=== PATIENT | female | born 1940 | race Caucasian/White ===

== ENCOUNTER → 2016-10-23 | Outpatient (CLI) | payer MEDICARE ==
[~2016-10-23] MED LIST: ASPI1TAB PO; ATEN50TA2 PO; ATOR40TA PO; CYCL5TA PO; DITR5TAB PO; LEXA1TAB2 PO; LISI10TA2 PO; LYRI75CA PO; METF1000 PO; NAPR500T2 PO; NEUR100C PO; OMEP40CA2 PO; PERC10TA17 PO; PERC5TAB6 PO; TIZA2CAP3 PO; VISITAB6 PO; VOLT1GEL24 TD
--- NOTE | 2016-10-24 01:50 | ECWPNPC ---
PATIENT NAME: ANNITA CANNON : 1940 GENDER: FEMALE VISIT DATE: 10/23/2016 DISCHARGE DATE: 10/23/16 1000 VISIT LOCKED DATE TIME: PHYSICIAN: ZABRINA LINK RESOURCE: ZABRINA LINK REASON FOR APPOINTMENT 1. RIGHT KNEE/BACK HISTORY OF PRESENT ILLNESS HISTORY OF PRESENT ILLNESS: HERE FOR F/U OF CHRONIC LOW BACK PAIN R>L.DID NOT DO PT .NOT INTERESTED IN DOING PT.RATING VAS 7/10.FINDS OXYCODONE 10/325 PRN HELPFUL DENIES SIDE EFFECTS.TAKING CYMBALTA 30MG BID PRESCRIBED BY PRIMARY CARE .FINDS IT HELPFUL.INTERVENTIONAL PROCEDURES HERE HAVE NOT BEEN HELPFUL.C/O INCREASE IN CHRONIC RIGHT KNEE PAIN.HX OF RIGHT KNEE REPLACEMENT SEVERAL YEARS AGO. PAIN THE PATIENT DESCRIBES THE PAIN... THE PATIENT DESCRIBES THE PAIN... THE PATIENT DESCRIBES THE PAIN... PAIN THE PATIENT DESCRIBES THE PAIN... THE PATIENT DESCRIBES THE PAIN... THE PATIENT DESCRIBES THE PAIN... FALL RISK SCREENING: SCREENING :NO FALLS IN THE PAST YEAR CURRENT MEDICATIONS TAKING ACETAMINOPHEN 500 MG CAPSULE 1 CAPSULE NEEDED ORALLY EVERY 6 HRS TAKING MICONAZOLE NITRATE 2 % CREAM 1 APPLICATION TO AFFECTED SKIN FOLDS EXTERNALLY TWICE A DAY NEEDED TAKING TRIAMCINOLONE ACETONIDE 0.5 % OINTMENT 1 APPLICATION TO AFFECTED AREA EXTERNALLY TO VULVA TWICE A DAY TAKING OCCUVITE TABLET 1 TAB(S) ORAL TWICE DAILY TAKING NEEDLE (DISP) BD NEEDLES FOR VICTOZA 1 SUBCUTANEOUSLY DAILY TAKING BLOOD GLUCOSE TEST STRIP - - DX: 250.00 - DAILY TAKING BLOOD GLUCOSE TEST DX: 250.00 STRIP DIRECTED IN VITRO DAILY TAKING SPACER/AERO CHAMBER MOUTHPIECE 0 MISCELLANEOUS DIRECTED - - TAKING MUCINEX 600 MG TABLET EXTENDED RELEASE 12 HOUR 1 TABLET NEEDED ORALLY EVERY 12 HRS TAKING TIZANIDINE HCL 2 MG TABLET 1-2 TABS NEEDED ORALLY AT BEDTIME, NOTES: PAIN CLINIC TAKING ALBUTEROL SULFATE HFA 108 (90 BASE) MCG/ACT AEROSOL SOLUTION 2 PUFFS INHALATION FOUR TIMES A DAY IF NEEDED TAKING FLONASE 50 MCG/ACT SUSPENSION 1 SPRAY IN EACH NOSTRIL NASALLY ONCE A DAY TAKING VOLTAREN 1 % GEL EXTERNALLY DIRECTED, NOTES: PAIN CLINIC TAKING ATENOLOL 50 MG TABLET 1 TABLET ORALLY ONCE A DAY TAKING ZESTORETIC 10-12.5 MG TABLET 1 TABLET ORALLY ONCE A DAY TAKING CYMBALTA 60 MG CAPSULE DELAYED RELEASE PARTICLES 1 CAPSULE ORALLY ONCE A DAY TAKING VICTOZA 1.8 MG SOLN 1.8 MG INJECTION SUBCUTANEOUSLY DAILY TAKING METFORMIN HCL 1000 MG TABLET 1 TABLET WITH MEALS ORALLY TWICE A DAY TAKING GLIPIZIDE XL 2.5 MG TABLET EXTENDED RELEASE 24 HOUR 1 TABLET ORALLY ONCE A DAY WITH MEAL TAKING ASPIR-81 81 MG TABLET DELAYED RELEASE 1 TABLET ORALLY ONCE A DAY TAKING MAGNESIUM OXIDE 500 MG TABLET 1 TAB WITH MEAL ORALLY DAILY TAKING CALCIUM + D 600-200 MG-UNIT TABLET 1 TABLET WITH FOOD ORALLY ONCE A DAY TAKING VITAMIN D 2000 UNIT TABLET 1 TABLET ORALLY DAILY WITH MEAL TAKING RANITIDINE HCL 150 MG CAPSULE 1 CAPSULE AT BEDTIME ORALLY ONCE A DAY NEEDED TAKING ATORVASTATIN CALCIUM 40 MG TABLET 1 TABLET ORALLY ONCE A DAY TAKING NAPROXEN 500 MG TABLET 1 TABLET NEEDED ORALLY EVERY 12 HRS TAKING ESOMEPRAZOLE MAGNESIUM 20 MG CAPSULE DELAYED RELEASE 1 CAPSULE ORALLY TWICE DAILY NEEDED WITH NAPROXEN TAKING PERCOCET 10-325 MG TABLET 1 CAP(S) ORALLY Q4H PRN MDD3, NOTES: PAIN CLINIC NOT-TAKING FLUOCINONIDE 0.05 % OINTMENT 1 APPLICATION TO AFFECTED AREA ON ELBOWS EXTERNALLY TWICE A DAY TO ELBOWS NEEDED FOR TWO WEEKS NOT-TAKING DERM OTIC 0.01% OIL 5 GTTS TO RIGHT EAR OTIC TWICE DAILY NOT-TAKING ESTRING 2 MG RING 1 RING WTW VAGINAL 90 DAYS UNKNOWN OXYBUTYNIN CHLORIDE ER 5 MG TABLET EXTENDED RELEASE 24 HOUR 1 TABLET ORALLY ONCE A DAY MEDICATION LIST REVIEWED AND RECONCILED WITH THE PATIENT PAST MEDICAL HISTORY TYPE II DIABETES OSTEOPENIA DEXA NL 10/28/2012 HEMATURIA DEPRESSION ANXIETY HYPERTENSION, ESSENTIAL ALLERGIC RHINITIS DIVERTICULOSIS HYPERLIPIDEMIA, MIXED ARTHRITIS ESOPHAGEAL REFLUX DEGENERATIVE DISC DISEASE ALLERGIES N.K.D.A. 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 NEW PATIENT PAIN DIARY TODAY'S VISITNOTES FROM 0-10, WHAT LEVEL IS YOUR PAIN TODAY?0 PAIN CLINIC PFS, CLERGY, PUBLIC HEALTH REFERRALS PFS REFERRAL NEEDED?NO CLERGY REFERRAL NEEDED?NO PUBLIC HEALTH REFERRAL NEEDED?NO WAS THE PROVIDER NOTIFIED OF ANY PERTINENT INFO?NO PFS REFERRAL NEEDED?NO CLERGY REFERRAL NEEDED?NO PUBLIC HEALTH REFERRAL NEEDED?NO WAS THE PROVIDER NOTIFIED OF ANY PERTINENT INFO?NO REVIEW OF SYSTEMS CONSTITUTIONAL: ANY CHANGE IN YOUR MEDICAL CONDITION? NO . CHILLS NO . FEVER NO . INFECTION: DO YOU HAVE NEW INFECTIONS? NO . DO YOU HAVE HISTORY OF MRSA? NO . MUSCULOSKELETAL: ANY NEW PATTERNS OF PAIN OR NUMBNESS? NO . GASTROENTEROLOGY: ANY NEW CHANGE IN BOWEL CONTROL? NO . GENITOURINARY: ANY NEW CHANGE IN BLADDER CONTROL? NO . IS THERE A CHANCE YOU COULD BE ? NO . HEMATOLOGY/LYMPH: DO YOU TAKE ANY BLOOD THINNERS? (FOR EXAMPLE- COUMADIN, PLAVIX, AGGRENOX, PLATEL, PRADAXA, OR XARELTO) NO . WHEN WAS YOUR LAST DOSE? DATE: TIME: . NEUROLOGY: HAVE YOU FALLEN IN THE PAST 6 MONTHS? NO . ANY NEW EXTREMITY NUMBNESS OR WEAKNESS? NO . CARDIOLOGY: DO YOU HAVE A PACEMAKER OR DEFIBRILLATOR? NO . RESPIRATORY: HAVE YOU BEEN SICK IN THE PAST WEEK? NO . FEVER NO . FLU LIKE SYMPTOMS? NO . COUGH NO . INTEGUMENTARY: DO YOU HAVE ANY RASHES OR OPEN SORES? NO . ALLERGIC/IMMUNO: ARE YOU ALLERGIC TO SHELLFISH OR IV DYE? NO . ANY NEW ALLERGIES? NO . PSYCHIATRIC: DO YOU HAVE THOUGHTS OF HURTING YOURSELF OR SOMEONE ELSE? NO . ARE YOU ABUSED, NEGLECTED, OR IN AN UNSAFE ENVIRONMENT? NO . ENDOCRINOLOGY: ARE YOU DIABETIC? YES . OTHER: DO YOU NEED ANY PRESCRIPTIONS? YES PERCOCET . IF YES, PLEASE LIST: ____ . ANY NEW PROBLEMS WITH YOUR MEDICATIONS? NO . WHEN DID YOU LAST EAT? ____ . WHEN DID YOU LAST DRINK? ____ . WHAT DID YOU LAST DRINK? ____ . NAME OF PERSON DRIVING YOU HOME? ____ . DO YOU HAVE ANY OTHER QUESTIONS OR CONCERNS NO . REVIEWED BY: PROVIDER: ZABRINA NOEL . VITAL SIGNS WT 185 LBS, HT 62 IN, BMI 33.83 INDEX, BP 162/81 MM HG, HR 84 /MIN, RR 16 /MIN, TEMP 96.5 F, OXYGEN SAT % 98, NA INITIALS TL 0923, REVIEWED BY: AD. EXAMINATION GENERAL EXAMINATION: LUNGS:LUNG SOUNDS ARE CLEAR. HEART:HEART RATE REGULAR. MUSCULOSKELETAL:*. LUMBAR SACRAL SPINEMUSCLE STRENGTH TESTING 5/5 BILATERAL. PALPATION: POSITIVE FOR PAIN OVER L/S SPINE. + FOR PAIN OVER L/S PARSPINAL ON RIGHT. TRIGGER POINTS:, . ROJM TESTING WITH NO INCREASE IN PAIN. NORMAL STEADY GAIT, ELICITED WITH PALPATION OVER RIGHT LUMBAR PARAVERTEBRAL MUSCLES.. ASSESSMENTS BILATERAL LOW BACK PAIN WITH RIGHT-SIDED SCIATICA - M54.41 (PRIMARY) POST LAMINECTOMY SYNDROME - M96.1 USE OF OPIATES FOR THERAPEUTIC PURPOSES - Z79.899 TREATMENT BILATERAL LOW BACK PAIN WITH RIGHT-SIDED SCIATICA REFILL PERCOCET TABLET, 10-325 MG, 1 CAP(S), ORALLY, Q4H PRN MDD3, 30 DAY(S), 45, REFILLS 0, NOTES: PAIN CLINIC NOTES: ISTOP REGISTRY REVIEWED AND DEMNOSTRATES COMPLLIANCE. BRINGS IN MEDICATIONS WHICH IS APPROPRIATE FOR WHAT WAS DISPENSED. RECENT URINE TOXICOLOGY REVIEWED. NO UNAUTHORIZED MEDICATIONS. NO ILLICIT SUBSTANCES AND PRESCRIBED MEDICATIONS WERE PRESENT. , RISKS AND BENEFITS OF NARCOTIC/OPIOD MEDICATIONS WERE REVIEWED WITH PATIENT - THIS INCLUDES BUT IS NOT LIMITED TO RISK OF DEPENDANCE/DEVELOPMENT OF ADDICTION, MOOD DISTURBANCE AND DEPRESSION, OSTEOPOROSIS, HORMONAL AND LABIDAL CHANGES, RESPIRATORY DEPRESSION AND . PATIENT IS ADVISED NOT TO DRIVE WHILE ON THESE MEDICATIONS. PROCEDURE CODES FA211 ESTABILISHED PATIENT [facility] FACILITY CHARGE G8730 PAIN ASSESS POS TOOL F/U PLAN DOC G8427 DOC MEDS VERIFIED W/PT OR RE FOLLOW UP 2 MONTHS ELECTRONICALLY SIGNED BY BERT TORRES ON 10/23/2016 AT 02:34 PM EST DISCLAIMER : THIS IS A VISIT SUMMARY EXTRACTED FROM THE [employer] CHART. IT IS NOT A COPY OF THE [employer] PROGRESS NOTE. MARY
== END ==
LOC: M PAIN 09:20
PROVIDERS: ATTEND Nurse Practitioner Family
DX: Z09 Encounter for follow-up examination after completed treatment for conditions other than malignant neoplasm (principal); G89.29 Other chronic pain; M54.41 Lumbago with sciatica, right side; M96.1 Postlaminectomy syndrome, not elsewhere classified; E11.9 Type 2 diabetes mellitus without complications; I10 Essential (primary) hypertension; M85.80 Other specified disorders of bone density and structure, unspecified site; E78.5 Hyperlipidemia, unspecified; M19.90 Unspecified osteoarthritis, unspecified site; K21.9 Gastro-esophageal reflux disease without esophagitis; F32.9 Major depressive disorder, single episode, unspecified; F41.9 Anxiety disorder, unspecified; J30.89 Other allergic rhinitis; M47.819 Spondylosis without myelopathy or radiculopathy, site unspecified; Z79.1 Long term (current) use of non-steroidal anti-inflammatories (NSAID); Z79.84 Long term (current) use of oral hypoglycemic drugs; Z79.82 Long term (current) use of aspirin; Z79.891 Long term (current) use of opiate analgesic; Z79.899 Other long term (current) drug therapy

== ENCOUNTER → 2017-01-20 | Outpatient (CLI) | payer MEDICARE ==
[~2017-01-20] MED LIST changes: +E-Z PAQUE 60% w/v SUSP 355ML BOTTLE As Ordered ONE; +E-Z-GAS II EFFERVESCENT PACKET (SODIUM BICARB./CITRIC ACID/SIMETHICONE) As Ordered ONE; +E-Z-HD 98% w/w 340GM SUSP BTL As Ordered ONE
--- NOTE | 2017-01-20 16:25 | REP ---
ESOPHAGRAM, AIR CONTRAST: The procedure was performed under the direct supervision of Dr. Bar. The images were reviewed with Dr. Bar. A single view PA chest x-ray is submitted as a project control officer film. There is no change compared to a previous chest x-ray performed on 12/03/2011. There are surgical clips noted in the right upper quadrant. Liquid barium and gas producing granules were given in the erect position as well as liquid barium in the prone oblique positions in order to perform a double contrast esophagram examination. The oral and pharyngeal stages of deglutition are unremarkable. Esophageal transport demonstrates tertiary waves. There is no esophagitis, stricture, mucosal ring or hiatal hernia. Gastroesophageal reflux is not demonstrated on this examination. IMPRESSION: Esophageal dysmotility, otherwise, unremarkable double contrast esophagram examination. 1 minute and 8 seconds of fluoroscopy time was utilized for this procedure. Reviewed by JIMMY Tate 01/20/2017 04:50 PEdited and Signed by Dereje Bar MD 01/20/2017 05:10 P
== END ==
LOC: M RAD 08:55
PROVIDERS: ATTEND Surgery
DX: R13.10 Dysphagia, unspecified (principal)

== ENCOUNTER → 2017-02-06 | Outpatient (CLI) | payer MEDICARE ==
[~2017-02-06] MED LIST changes: -E-Z PAQUE 60% w/v SUSP 355ML BOTTLE As Ordered ONE; -E-Z-GAS II EFFERVESCENT PACKET (SODIUM BICARB./CITRIC ACID/SIMETHICONE) As Ordered ONE; -E-Z-HD 98% w/w 340GM SUSP BTL As Ordered ONE
--- NOTE | 2017-02-25 02:05 | ECWPNPC ---
PATIENT NAME: ANNITA CANNON : 1940 GENDER: FEMALE VISIT DATE: 02/06/2017 DISCHARGE DATE: 02/06/17 1007 VISIT LOCKED DATE TIME: PHYSICIAN: ZABRINA LINK RESOURCE: ZABRINA LINK REASON FOR APPOINTMENT 1. BACK/R LEG HISTORY OF PRESENT ILLNESS HISTORY OF PRESENT ILLNESS: HERE FOR F/U OF CHRONIC LOW BACK PAIN R>L.DID NOT DO PT .NOT INTERESTED IN DOING PT.RATING VAS 8/10.FINDS OXYCODONE 10/325 PRN HELPFUL DENIES SIDE EFFECTS.TAKING CYMBALTA 30MG BID PRESCRIBED BY PRIMARY CARE .FINDS IT HELPFUL.INTERVENTIONAL PROCEDURES HERE HAVE NOT BEEN HELPFUL.C/O INCREASE IN CHRONIC RIGHT KNEE PAIN.HX OF RIGHT KNEE REPLACEMENT SEVERAL YEARS AGO. PAIN THE PATIENT DESCRIBES THE PAIN... THE PATIENT DESCRIBES THE PAIN... THE PATIENT DESCRIBES THE PAIN... THE PATIENT DESCRIBES THE PAIN... FALL RISK SCREENING: SCREENING :NO FALLS IN THE PAST YEAR CURRENT MEDICATIONS TAKING ACETAMINOPHEN 500 MG CAPSULE 1 CAPSULE NEEDED ORALLY EVERY 6 HRS TAKING TRIAMCINOLONE ACETONIDE 0.5 % OINTMENT 1 APPLICATION TO AFFECTED AREA EXTERNALLY TO VULVA TWICE A DAY TAKING OCCUVITE TABLET 1 TAB(S) ORAL TWICE DAILY TAKING BLOOD GLUCOSE TEST STRIP - - DX: 250.00 - DAILY TAKING BLOOD GLUCOSE TEST DX: 250.00 STRIP DIRECTED IN VITRO DAILY TAKING SPACER/AERO CHAMBER MOUTHPIECE 0 MISCELLANEOUS DIRECTED - - TAKING MUCINEX 600 MG TABLET EXTENDED RELEASE 12 HOUR 1 TABLET NEEDED ORALLY EVERY 12 HRS TAKING TIZANIDINE HCL 2 MG TABLET 1-2 TABS NEEDED ORALLY AT BEDTIME, NOTES: PAIN CLINIC TAKING VOLTAREN 1 % GEL EXTERNALLY DIRECTED, NOTES: PAIN CLINIC TAKING ASPIR-81 81 MG TABLET DELAYED RELEASE 1 TABLET ORALLY ONCE A DAY TAKING MAGNESIUM OXIDE 500 MG TABLET 1 TAB WITH MEAL ORALLY DAILY TAKING NAPROXEN 500 MG TABLET 1 TABLET NEEDED ORALLY EVERY 12 HRS TAKING VITAMIN D 2000 UNIT TABLET 1 TABLET ORALLY DAILY WITH MEAL TAKING CALCIUM + D 600-200 MG-UNIT TABLET 1 TABLET WITH FOOD ORALLY ONCE A DAY TAKING FLONASE 50 MCG/ACT SUSPENSION 1 SPRAY IN EACH NOSTRIL NASALLY ONCE A DAY TAKING ALBUTEROL SULFATE HFA 108 (90 BASE) MCG/ACT AEROSOL SOLUTION 2 PUFFS INHALATION FOUR TIMES A DAY IF NEEDED TAKING NEEDLE (DISP) BD NEEDLES FOR VICTOZA 1 SUBCUTANEOUSLY DAILY DX:E11.9 TAKING BLOOD GLUCOSE TEST - STRIP DIRECTED IN VITRO DAILY DX E11.9 TAKING ESOMEPRAZOLE MAGNESIUM 20 MG CAPSULE DELAYED RELEASE 1 CAPSULE ORALLY TWICE DAILY NEEDED WITH NAPROXEN TAKING ATORVASTATIN CALCIUM 40 MG TABLET 1 TABLET ORALLY ONCE A DAY TAKING RANITIDINE HCL 150 MG CAPSULE 1 CAPSULE AT BEDTIME ORALLY ONCE A DAY NEEDED TAKING GLIPIZIDE XL 2.5 MG TABLET EXTENDED RELEASE 24 HOUR 1 TABLET ORALLY ONCE A DAY WITH MEAL TAKING METFORMIN HCL 1000 MG TABLET 1 TABLET WITH MEALS ORALLY TWICE A DAY TAKING VICTOZA 1.8 MG SOLN 1.8 MG INJECTION SUBCUTANEOUSLY DAILY TAKING CYMBALTA 60 MG CAPSULE DELAYED RELEASE PARTICLES 1 CAPSULE ORALLY ONCE A DAY TAKING ZESTORETIC 10-12.5 MG TABLET 1 TABLET ORALLY ONCE A DAY TAKING ATENOLOL 50 MG TABLET 1 TABLET ORALLY ONCE A DAY TAKING MICONAZOLE NITRATE 2 % CREAM 1 APPLICATION TO AFFECTED SKIN FOLDS IN GROIN EXTERNALLY TWICE A DAY NEEDED TAKING PERCOCET 10-325 MG TABLET 1 CAP(S) ORALLY Q4H PRN MDD3, NOTES: PAIN CLINIC NOT-TAKING PREDNISONE 20 MG TABLET 2 TABS WITH FOOD ORALLY ONCE A DAY NOT-TAKING AMOXICILLIN 875 MG TABLET 1 TABLET ORALLY TWICE DAILY NOT-TAKING GUAIFENESIN-CODEINE 100-10 MG/5ML SOLUTION 5 ML ORALLY EVERY 4 HRS NEEDED FOR COUGH NOT-TAKING FLUOCINONIDE 0.05 % OINTMENT 1 APPLICATION TO AFFECTED AREA ON ELBOWS EXTERNALLY TWICE A DAY TO ELBOWS NEEDED FOR TWO WEEKS NOT-TAKING DERM OTIC 0.01% OIL 5 GTTS TO RIGHT EAR OTIC TWICE DAILY NOT-TAKING ESTRING 2 MG RING 1 RING WTW VAGINAL 90 DAYS UNKNOWN OXYBUTYNIN CHLORIDE ER 5 MG TABLET EXTENDED RELEASE 24 HOUR 1 TABLET ORALLY ONCE A DAY MEDICATION LIST REVIEWED AND RECONCILED WITH THE PATIENT PAST MEDICAL HISTORY TYPE II DIABETES OSTEOPENIA DEXA NL 10/28/2012 HEMATURIA DEPRESSION ANXIETY HYPERTENSION, ESSENTIAL ALLERGIC RHINITIS DIVERTICULOSIS HYPERLIPIDEMIA, MIXED ARTHRITIS ESOPHAGEAL REFLUX DEGENERATIVE DISC DISEASE ALLERGIES N.K.D.A. REVIEW OF SYSTEMS CONSTITUTIONAL: ANY CHANGE IN YOUR MEDICAL CONDITION? YES, TINGLING LEFT SHOULDER INTO NECK/ NEW IN LAST 2 WEEKS . CHILLS NO . FEVER NO . INFECTION: DO YOU HAVE NEW INFECTIONS? NO . DO YOU HAVE HISTORY OF MRSA? NO . MUSCULOSKELETAL: ANY NEW PATTERNS OF PAIN OR NUMBNESS? NO . GASTROENTEROLOGY: ANY NEW CHANGE IN BOWEL CONTROL? NO . GENITOURINARY: ANY NEW CHANGE IN BLADDER CONTROL? NO . IS THERE A CHANCE YOU COULD BE ? NO . HEMATOLOGY/LYMPH: DO YOU TAKE ANY BLOOD THINNERS? (FOR EXAMPLE- COUMADIN, PLAVIX, AGGRENOX, PLATEL, PRADAXA, OR XARELTO) NO . WHEN WAS YOUR LAST DOSE? DATE: TIME: . NEUROLOGY: HAVE YOU FALLEN IN THE PAST 6 MONTHS? NO . ANY NEW EXTREMITY NUMBNESS OR WEAKNESS? NO . CARDIOLOGY: DO YOU HAVE A PACEMAKER OR DEFIBRILLATOR? NO . RESPIRATORY: HAVE YOU BEEN SICK IN THE PAST WEEK? NO . FEVER NO . FLU LIKE SYMPTOMS? NO . COUGH NO . INTEGUMENTARY: DO YOU HAVE ANY RASHES OR OPEN SORES? NO . ALLERGIC/IMMUNO: ARE YOU ALLERGIC TO SHELLFISH OR IV DYE? NO . ANY NEW ALLERGIES? NO . PSYCHIATRIC: DO YOU HAVE THOUGHTS OF HURTING YOURSELF OR SOMEONE ELSE? NO . ARE YOU ABUSED, NEGLECTED, OR IN AN UNSAFE ENVIRONMENT? NO . ENDOCRINOLOGY: ARE YOU DIABETIC? YES . OTHER: DO YOU NEED ANY PRESCRIPTIONS? NO . IF YES, PLEASE LIST: ____ . ANY NEW PROBLEMS WITH YOUR MEDICATIONS? NO . WHEN DID YOU LAST EAT? ____ . WHEN DID YOU LAST DRINK? ____ . WHAT DID YOU LAST DRINK? ____ . NAME OF PERSON DRIVING YOU HOME? ____ . DO YOU HAVE ANY OTHER QUESTIONS OR CONCERNS NO . REVIEWED BY: PROVIDER: ZABRINA NOEL . VITAL SIGNS WT 185.6 LBS, HT 62 IN, BMI 33.94 INDEX, BP 143/99 R ARM, REPEAT BP 180/74 L ARM, HR 89 /MIN, RR 18 /MIN, TEMP 96.0 F, OXYGEN SAT % 94%, NA INITIALS [id number], REVIEWED BY: NL. EXAMINATION GENERAL EXAMINATION: LUNGS:LUNG SOUNDS ARE CLEAR. HEART:HEART RATE REGULAR. MUSCULOSKELETAL:*. LUMBAR SACRAL SPINEMUSCLE STRENGTH TESTING 5/5 BILATERAL. PALPATION: POSITIVE FOR PAIN OVER L/S SPINE. + FOR PAIN OVER L/S PARSPINAL ON RIGHT. TRIGGER POINTS:, . ROJM TESTING WITH NO INCREASE IN PAIN. NORMAL STEADY GAIT, ELICITED WITH PALPATION OVER RIGHT LUMBAR PARAVERTEBRAL MUSCLES.. 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 BRINGS IN MEDICATIONS WHICH IS APPROPRIATE FOR WHAT WAS DISPENSED. RECENT URINE TOXICOLOGY REVIEWED. NO UNAUTHORIZED MEDICATIONS. NO ILLICIT SUBSTANCES AND PRESCRIBED MEDICATIONS WERE PRESENT. , RISKS AND BENEFITS OF NARCOTIC/OPIOD MEDICATIONS WERE REVIEWED WITH PATIENT - THIS INCLUDES BUT IS NOT LIMITED TO RISK OF DEPENDANCE/DEVELOPMENT OF ADDICTION, MOOD DISTURBANCE AND DEPRESSION, OSTEOPOROSIS, HORMONAL AND LABIDAL CHANGES, RESPIRATORY DEPRESSION AND . PATIENT IS ADVISED NOT TO DRIVE WHILE ON THESE MEDICATIONS.URINE TOX TODAY. PROCEDURE CODES FA211 ESTABILISHED PATIENT [facility] FACILITY CHARGE G8730 PAIN ASSESS POS TOOL F/U PLAN DOC G8427 DOC MEDS VERIFIED W/PT OR RE DISPOSITION & COMMUNICATION FOLLOW UP 2 MONTHS ELECTRONICALLY SIGNED BY BERT TORRES ON 02/24/2017 AT 04:35 PM EDT DISCLAIMER : THIS IS A VISIT SUMMARY EXTRACTED FROM THE [employer] CHART. IT IS NOT A COPY OF THE [employer] PROGRESS NOTE. MTDD
== END ==
LOC: M PAIN 09:20
PROVIDERS: ATTEND Nurse Practitioner Family
DX: M54.41 Lumbago with sciatica, right side (principal); Z79.891 Long term (current) use of opiate analgesic; Z79.82 Long term (current) use of aspirin; Z79.84 Long term (current) use of oral hypoglycemic drugs; Z79.899 Other long term (current) drug therapy; E11.9 Type 2 diabetes mellitus without complications; E78.2 Mixed hyperlipidemia; I10 Essential (primary) hypertension; K21.9 Gastro-esophageal reflux disease without esophagitis; F32.9 Major depressive disorder, single episode, unspecified; F41.9 Anxiety disorder, unspecified; K57.30 Diverticulosis of large intestine without perforation or abscess without bleeding

== ENCOUNTER → 2017-02-23 | Outpatient (CLI) | payer MEDICARE ==
[~2017-02-23] MED LIST changes: -ATOR40TA PO; +ATOR40TA75 PO; -METF1000 PO; +METF10004 PO; -NAPR500T2 PO; +NAPR500T3 PO; -PERC10TA17 PO; +PERC10TA26 PO; +PERC5TAB12 PO; -PERC5TAB6 PO; +VOLT1GEL15 TD; -VOLT1GEL24 TD
[2017-02-23 06:58] LABS: BASO % 0.4 % (0.0-1.0); EOS # 0.4 K/mm3 (0.0-0.50); EOS % 2.8 % (0.0-3.0); LYMPH # 3.5 K/mm3 (1.5-4.5); LYMPH % 24.9 % (24.0-44.0); MEAN CORPUSCULAR HEMOGLOBIN 30.4 pg (27.0-33.0); MEAN CORPUSCULAR HGB CONC 32.4 g/dl (32.0-36.5); MONO # 0.9 K/mm3 (0.0-0.8); MONO % 6.1 % (0.0-5.0); NEUTROPHILS # 8.8 K/mm3 (1.8-7.7); NEUTROPHILS % 63.5 % (36.0-66.0); RED CELL DISTRIBUTION WIDTH 14.7 % (11.5-14.5); WHITE BLOOD COUNT 13.9 K/mm3 (4.0-10.0)
[2017-02-23 07:29] LABS: ALBUMIN 3.6 GM/DL (3.2-5.2); ALBUMIN/GLOBULIN RATIO 1.16 (1.00-1.93); BILIRUBIN,TOTAL 0.5 MG/DL (0.2-1.0); CALCIUM LEVEL 8.9 MG/DL (8.8-10.2); CREATININE FOR GFR 1.09 MG/DL (0.55-1.02); GLOMERULAR FILTRATION RATE 51.8 (>39); TOTAL PROTEIN 6.7 GM/DL (6.4-8.2)
[2017-02-23 07:30] LABS: POTASSIUM SERUM 5.3 MEQ/L (3.5-5.1)
== END ==
LOC: M LAB 06:12
PROVIDERS: ATTEND Physician Assistant Medical
DX: E11.9 Type 2 diabetes mellitus without complications (principal); R22.1 Localized swelling, mass and lump, neck; M54.41 Lumbago with sciatica, right side; Z79.891 Long term (current) use of opiate analgesic

== ENCOUNTER → 2017-02-23 | Outpatient (CLI) | payer MEDICARE ==
[~2017-02-23] MED LIST changes: +ATOR40TA PO; -ATOR40TA75 PO; +METF1000 PO; -METF10004 PO; +NAPR500T2 PO; -NAPR500T3 PO; +PERC10TA17 PO; -PERC10TA26 PO; -PERC5TAB12 PO; +PERC5TAB6 PO; -VOLT1GEL15 TD; +VOLT1GEL24 TD
[2017-02-23 07:19] LABS: CREATININE FOR GFR 1.1 MG/DL (0.55-1.02); GLOMERULAR FILTRATION RATE 51.3 (>39)
== END ==
LOC: M LAB 06:15
PROVIDERS: ATTEND Otolaryngology
DX: R22.1 Localized swelling, mass and lump, neck (principal)

== ENCOUNTER → 2017-02-27 | Outpatient (CLI) | payer MEDICARE ==
[~2017-02-27] MED LIST changes: +ISOVUE-370 76% 100ML VIAL (Q9967) As Ordered ONE
--- NOTE | 2017-02-27 09:22 | REP ---
CT NECK WITH CONTRAST: HISTORY: Neck swelling. Contrast: Isovue 370, 75 mL. The naso-, abiola-, and hypopharynx, larynx, and subglottic trachea are normal in appearance. The salivary and thyroid glands are normal. Small lymph nodes less than 1 cm in size are present in the internal jugular chains, posterior triangles, submandibular and submental areas. Atherosclerotic calcification is present at the carotid bifurcations. Degenerative change is present in the cervical spine. The lung apices are clear. The visualized sinuses are clear. IMPRESSION: There is no neck mass or adenopathy. Signed by Can Diaz MD 02/27/2017 09:23 A
== END ==
LOC: M RAD 07:57
PROVIDERS: ATTEND Otolaryngology
DX: R13.10 Dysphagia, unspecified (principal)
CPT/HCPCS: 70491; Q9967

== ENCOUNTER → 2017-04-10 | Outpatient (CLI) | payer MEDICARE ==
[~2017-04-10] MED LIST changes: -ATOR40TA PO; +ATOR40TA75 PO; -ISOVUE-370 76% 100ML VIAL (Q9967) As Ordered ONE; -METF1000 PO; +METF10004 PO; -NAPR500T2 PO; +NAPR500T3 PO; -PERC10TA17 PO; +PERC10TA26 PO; +PERC5TAB12 PO; -PERC5TAB6 PO; +VOLT1GEL15 TD; -VOLT1GEL24 TD
--- NOTE | 2017-04-11 01:55 | ECWPNPC ---
PATIENT NAME: ANNITA CANNON : 1940 GENDER: FEMALE VISIT DATE: 04/10/2017 DISCHARGE DATE: 04/10/17918 VISIT LOCKED DATE TIME: PHYSICIAN: ZABRINA LINK RESOURCE: ZABRINA LINK REASON FOR APPOINTMENT 1. BACK HISTORY OF PRESENT ILLNESS HISTORY OF PRESENT ILLNESS: HERE FOR F/U OF CHRONIC LOW BACK PAIN R>L.DID NOT DO PT .NOT INTERESTED IN DOING PT.RATING VAS 7/10.FINDS OXYCODONE 10/325 PRN HELPFUL DENIES SIDE EFFECTS.TAKING CYMBALTA 30MG BID PRESCRIBED BY PRIMARY CARE .FINDS IT HELPFUL.INTERVENTIONAL PROCEDURES HERE HAVE NOT BEEN HELPFUL.C/O INCREASE IN CHRONIC RIGHT KNEE PAIN.HX OF RIGHT KNEE REPLACEMENT SEVERAL YEARS AGO. PAIN THE PATIENT DESCRIBES THE PAIN... THE PATIENT DESCRIBES THE PAIN... THE PATIENT DESCRIBES THE PAIN... THE PATIENT DESCRIBES THE PAIN... THE PATIENT DESCRIBES THE PAIN... FALL RISK SCREENING: SCREENING :NO FALLS IN THE PAST YEAR CURRENT MEDICATIONS TAKING ACETAMINOPHEN 500 MG CAPSULE 1 CAPSULE NEEDED ORALLY EVERY 6 HRS TAKING TRIAMCINOLONE ACETONIDE 0.5 % OINTMENT 1 APPLICATION TO AFFECTED AREA EXTERNALLY TO VULVA TWICE A DAY TAKING OCCUVITE TABLET 1 TAB(S) ORAL TWICE DAILY TAKING BLOOD GLUCOSE TEST STRIP - - DX: 250.00 - DAILY TAKING BLOOD GLUCOSE TEST DX: 250.00 STRIP DIRECTED IN VITRO DAILY TAKING SPACER/AERO CHAMBER MOUTHPIECE 0 MISCELLANEOUS DIRECTED - - TAKING MUCINEX 600 MG TABLET EXTENDED RELEASE 12 HOUR 1 TABLET NEEDED ORALLY EVERY 12 HRS TAKING TIZANIDINE HCL 2 MG TABLET 1-2 TABS NEEDED ORALLY AT BEDTIME, NOTES: PAIN CLINIC TAKING VOLTAREN 1 % GEL EXTERNALLY DIRECTED, NOTES: PAIN CLINIC TAKING ASPIR-81 81 MG TABLET DELAYED RELEASE 1 TABLET ORALLY ONCE A DAY TAKING MAGNESIUM OXIDE 500 MG TABLET 1 TAB WITH MEAL ORALLY DAILY TAKING NAPROXEN 500 MG TABLET 1 TABLET NEEDED ORALLY EVERY 12 HRS TAKING VITAMIN D 2000 UNIT TABLET 1 TABLET ORALLY DAILY WITH MEAL TAKING CALCIUM + D 600-200 MG-UNIT TABLET 1 TABLET WITH FOOD ORALLY ONCE A DAY TAKING FLONASE 50 MCG/ACT SUSPENSION 1 SPRAY IN EACH NOSTRIL NASALLY ONCE A DAY TAKING ALBUTEROL SULFATE HFA 108 (90 BASE) MCG/ACT AEROSOL SOLUTION 2 PUFFS INHALATION FOUR TIMES A DAY IF NEEDED TAKING NEEDLE (DISP) BD NEEDLES FOR VICTOZA 1 SUBCUTANEOUSLY DAILY DX:E11.9 TAKING BLOOD GLUCOSE TEST - STRIP DIRECTED IN VITRO DAILY DX E11.9 TAKING ESOMEPRAZOLE MAGNESIUM 20 MG CAPSULE DELAYED RELEASE 1 CAPSULE ORALLY TWICE DAILY NEEDED WITH NAPROXEN TAKING ATORVASTATIN CALCIUM 40 MG TABLET 1 TABLET ORALLY ONCE A DAY TAKING RANITIDINE HCL 150 MG CAPSULE 1 CAPSULE AT BEDTIME ORALLY ONCE A DAY NEEDED TAKING GLIPIZIDE XL 5 MG TABLET EXTENDED RELEASE 24 HOUR 1 TABLET ORALLY ONCE A DAY WITH MEAL TAKING METFORMIN HCL 1000 MG TABLET 1 TABLET WITH MEALS ORALLY TWICE A DAY TAKING VICTOZA 1.8 MG SOLN 1.8 MG INJECTION SUBCUTANEOUSLY DAILY TAKING CYMBALTA 60 MG CAPSULE DELAYED RELEASE PARTICLES 1 CAPSULE ORALLY ONCE A DAY TAKING ZESTORETIC 10-12.5 MG TABLET 1 TABLET ORALLY ONCE A DAY TAKING ATENOLOL 50 MG TABLET 1 TABLET ORALLY ONCE A DAY TAKING MICONAZOLE NITRATE 2 % CREAM 1 APPLICATION TO AFFECTED SKIN FOLDS IN GROIN EXTERNALLY TWICE A DAY NEEDED TAKING PERCOCET 10-325 MG TABLET 1 CAP(S) ORALLY Q4H PRN MDD3, NOTES: PAIN CLINIC NOT-TAKING PREDNISONE 20 MG TABLET 2 TABS WITH FOOD ORALLY ONCE A DAY NOT-TAKING AMOXICILLIN 875 MG TABLET 1 TABLET ORALLY TWICE DAILY NOT-TAKING GUAIFENESIN-CODEINE 100-10 MG/5ML SOLUTION 5 ML ORALLY EVERY 4 HRS NEEDED FOR COUGH NOT-TAKING FLUOCINONIDE 0.05 % OINTMENT 1 APPLICATION TO AFFECTED AREA ON ELBOWS EXTERNALLY TWICE A DAY TO ELBOWS NEEDED FOR TWO WEEKS NOT-TAKING DERM OTIC 0.01% OIL 5 GTTS TO RIGHT EAR OTIC TWICE DAILY NOT-TAKING ESTRING 2 MG RING 1 RING WTW VAGINAL 90 DAYS UNKNOWN OXYBUTYNIN CHLORIDE ER 5 MG TABLET EXTENDED RELEASE 24 HOUR 1 TABLET ORALLY ONCE A DAY MEDICATION LIST REVIEWED AND RECONCILED WITH THE PATIENT PAST MEDICAL HISTORY TYPE II DIABETES OSTEOPENIA DEXA NL 10/28/2012 HEMATURIA DEPRESSION ANXIETY HYPERTENSION, ESSENTIAL ALLERGIC RHINITIS DIVERTICULOSIS HYPERLIPIDEMIA, MIXED ARTHRITIS ESOPHAGEAL REFLUX DEGENERATIVE DISC DISEASE REVIEW OF SYSTEMS REVIEWED BY: PROVIDER: ZABRINA NOEL . CONSTITUTIONAL: ANY CHANGE IN YOUR MEDICAL CONDITION? NO . CHILLS NO . FEVER NO . INFECTION: DO YOU HAVE NEW INFECTIONS? NO . DO YOU HAVE HISTORY OF MRSA? NO . MUSCULOSKELETAL: ANY NEW PATTERNS OF PAIN OR NUMBNESS? NO . GASTROENTEROLOGY: ANY NEW CHANGE IN BOWEL CONTROL? NO . GENITOURINARY: ANY NEW CHANGE IN BLADDER CONTROL? NO . IS THERE A CHANCE YOU COULD BE ? NO . HEMATOLOGY/LYMPH: DO YOU TAKE ANY BLOOD THINNERS? (FOR EXAMPLE- COUMADIN, PLAVIX, AGGRENOX, PLATEL, PRADAXA, OR XARELTO) NO . WHEN WAS YOUR LAST DOSE? DATE: TIME: . NEUROLOGY: HAVE YOU FALLEN IN THE PAST 6 MONTHS? NO . ANY NEW EXTREMITY NUMBNESS OR WEAKNESS? NO . CARDIOLOGY: DO YOU HAVE A PACEMAKER OR DEFIBRILLATOR? NO . RESPIRATORY: HAVE YOU BEEN SICK IN THE PAST WEEK? NO . FEVER NO . FLU LIKE SYMPTOMS? NO . COUGH NO . INTEGUMENTARY: DO YOU HAVE ANY RASHES OR OPEN SORES? NO . ALLERGIC/IMMUNO: ARE YOU ALLERGIC TO SHELLFISH OR IV DYE? NO . ANY NEW ALLERGIES? NO . PSYCHIATRIC: DO YOU HAVE THOUGHTS OF HURTING YOURSELF OR SOMEONE ELSE? NO . ARE YOU ABUSED, NEGLECTED, OR IN AN UNSAFE ENVIRONMENT? NO . ENDOCRINOLOGY: ARE YOU DIABETIC? YES . OTHER: DO YOU NEED ANY PRESCRIPTIONS? NO . IF YES, PLEASE LIST: ____ . ANY NEW PROBLEMS WITH YOUR MEDICATIONS? NO . WHEN DID YOU LAST EAT? ____ . WHEN DID YOU LAST DRINK? ____ . WHAT DID YOU LAST DRINK? ____ . NAME OF PERSON DRIVING YOU HOME? ____ . DO YOU HAVE ANY OTHER QUESTIONS OR CONCERNS NO . VITAL SIGNS WT 1789 LBS, HT 62 IN, BMI 327.18 INDEX, BP 128/62 MM HG, HR 88 /MIN, RR 18 /MIN, TEMP 98.2 F, OXYGEN SAT % 95, SAFE IN ENV? (Y/N) YES, REVIEWED BY: KG. EXAMINATION GENERAL EXAMINATION: LUNGS:LUNG SOUNDS ARE CLEAR. HEART:HEART RATE REGULAR. MUSCULOSKELETAL:*. LUMBAR SACRAL SPINEMUSCLE STRENGTH TESTING 5/5 BILATERAL. PALPATION: POSITIVE FOR PAIN OVER L/S SPINE. + FOR PAIN OVER L/S PARSPINAL ON RIGHT. TRIGGER POINTS:, . ROJM TESTING WITH NO INCREASE IN PAIN. NORMAL STEADY GAIT, ELICITED WITH PALPATION OVER RIGHT LUMBAR PARAVERTEBRAL MUSCLES.. 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 BRINGS IN MEDICATIONS WHICH IS APPROPRIATE FOR WHAT WAS DISPENSED. RECENT URINE TOXICOLOGY REVIEWED. NO UNAUTHORIZED MEDICATIONS. NO ILLICIT SUBSTANCES AND PRESCRIBED MEDICATIONS WERE PRESENT. , RISKS AND BENEFITS OF NARCOTIC/OPIOD MEDICATIONS WERE REVIEWED WITH PATIENT - THIS INCLUDES BUT IS NOT LIMITED TO RISK OF DEPENDANCE/DEVELOPMENT OF ADDICTION, MOOD DISTURBANCE AND DEPRESSION, OSTEOPOROSIS, HORMONAL AND LABIDAL CHANGES, RESPIRATORY DEPRESSION AND . PATIENT IS ADVISED NOT TO DRIVE WHILE ON THESE MEDICATIONS. PROCEDURE CODES G8730 PAIN ASSESS POS TOOL F/U PLAN DOC G8427 DOC MEDS VERIFIED W/PT OR RE FA211 ESTABILISHED PATIENT [facility] FACILITY CHARGE DISPOSITION & COMMUNICATION FOLLOW UP 3 MONTHS ELECTRONICALLY SIGNED BY BERT TORRES ON 04/10/2017 AT 09:52 AM EDT DISCLAIMER : THIS IS A VISIT SUMMARY EXTRACTED FROM THE [employer] CHART. IT IS NOT A COPY OF THE [employer] PROGRESS NOTE. MARY
== END ==
LOC: M PAIN 08:40
PROVIDERS: ATTEND Nurse Practitioner Family
DX: M54.41 Lumbago with sciatica, right side (principal); G89.29 Other chronic pain; Z79.891 Long term (current) use of opiate analgesic; Z79.82 Long term (current) use of aspirin; Z79.84 Long term (current) use of oral hypoglycemic drugs; Z79.4 Long term (current) use of insulin; M15.9 Polyosteoarthritis, unspecified; I10 Essential (primary) hypertension; E11.9 Type 2 diabetes mellitus without complications; E78.2 Mixed hyperlipidemia; F41.9 Anxiety disorder, unspecified; K21.9 Gastro-esophageal reflux disease without esophagitis

== ENCOUNTER → 2017-05-02 | Outpatient (CLI) | payer MEDICARE ==
[2017-05-02 08:35] LABS: BASO # 0.1 K/mm3 (0.0-0.2); BASO % 0.3 % (0.0-1.0); EOS # 0.4 K/mm3 (0.0-0.50); LARGE UNSTAINED CELL # 0.5 K/mm3 (0.0-0.4); LARGE UNSTAINED CELL % 2.8 % (0.0-4.0); LYMPH # 3.9 K/mm3 (1.5-4.5); LYMPH % 18.6 % (24.0-44.0); MEAN CORPUSCULAR HEMOGLOBIN 28.5 pg (27.0-33.0); MEAN CORPUSCULAR HGB CONC 32.2 g/dl (32.0-36.5); MEAN CORPUSCULAR VOLUME 88.6 fl (80.0-96.0); MONO # 1.2 K/mm3 (0.0-0.8); MONO % 6.9 % (0.0-5.0); NEUTROPHILS # 12.6 K/mm3 (1.8-7.7); NEUTROPHILS % 69.4 % (36.0-66.0); PLATELET COUNT, AUTOMATED 453 k/mm3 (150-450); RED CELL DISTRIBUTION WIDTH 14.9 % (11.5-14.5); WHITE BLOOD COUNT 18.1 K/mm3 (4.0-10.0)
[2017-05-02 09:07] LABS: ALBUMIN/GLOBULIN RATIO 0.91 (1.00-1.93); ALKALINE PHOSPHATASE 93 U/L (45-117); ALT/SGPT 19 U/L (12-78); ANION GAP 10 MEQ/L (8-16); AST/SGOT 19 U/L (15-37); BILIRUBIN,TOTAL 0.4 MG/DL (0.2-1.0); BLOOD UREA NITROGEN 26 MG/DL (7-18); CALCIUM LEVEL 9.2 MG/DL (8.8-10.2); CARBON DIOXIDE LEVEL 27 MEQ/L (21-32); CHLORIDE LEVEL 102 MEQ/L (98-107); CHOLESTEROL LEVEL 90 MG/DL (<200); CREATININE FOR GFR 0.89 MG/DL (0.55-1.02); GLOMERULAR FILTRATION RATE > 60.0 (>39); GLUCOSE, FASTING 116 MG/DL (83-110); POTASSIUM SERUM 5.1 MEQ/L (3.5-5.1); SODIUM LEVEL 139 MEQ/L (136-145); TOTAL PROTEIN 6.3 GM/DL (6.4-8.2); TRIGLYCERIDES LEVEL 104 MG/DL (<150)
== END ==
LOC: M LAB 07:46
PROVIDERS: ATTEND Physician Assistant Medical
DX: E11.9 Type 2 diabetes mellitus without complications (principal)

== ENCOUNTER → 2017-05-05 | Outpatient (REF) | payer MEDICARE ==
[2017-05-05 13:06] LABS: CALCIUM LEVEL 8.9 MG/DL (8.8-10.2); CREATININE FOR GFR 1.19 MG/DL (0.55-1.02); GLOMERULAR FILTRATION RATE 46.8 (>39); POTASSIUM SERUM 4.9 MEQ/L (3.5-5.1)
[2017-05-05 13:11] LABS: BASO # 0.1 K/mm3 (0.0-0.2); BASO % 0.7 % (0.0-1.0); EOS # 0.2 K/mm3 (0.0-0.50); EOS % 2.2 % (0.0-3.0); LARGE UNSTAINED CELL # 0.2 K/mm3 (0.0-0.4); LARGE UNSTAINED CELL % 1.8 % (0.0-4.0); LYMPH # 3.8 K/mm3 (1.5-4.5); LYMPH % 34.6 % (24.0-44.0); MEAN CORPUSCULAR HEMOGLOBIN 28.6 pg (27.0-33.0); MEAN CORPUSCULAR HGB CONC 31.8 g/dl (32.0-36.5); MEAN CORPUSCULAR VOLUME 89.9 fl (80.0-96.0); MONO # 0.8 K/mm3 (0.0-0.8); MONO % 7.3 % (0.0-5.0); NEUTROPHILS # 5.5 K/mm3 (1.8-7.7); NEUTROPHILS % 53.3 % (36.0-66.0); PLATELET COUNT, AUTOMATED 489 k/mm3 (150-450); WHITE BLOOD COUNT 10.4 K/mm3 (4.0-10.0)
== END ==
LOC: M LABDRAW1 12:43
PROVIDERS: ATTEND Physician Assistant Medical
DX: E11.9 Type 2 diabetes mellitus without complications (principal)

== ENCOUNTER → 2017-05-22 | Outpatient (REF) | payer MEDICARE ==
[2017-05-22 12:53] LABS: BASO # 0.1 K/mm3 (0.0-0.2); EOS # 0.4 K/mm3 (0.0-0.50); EOS % 3.4 % (0.0-3.0); LYMPH # 5.2 K/mm3 (1.5-4.5); LYMPH % 42.3 % (24.0-44.0); MEAN CORPUSCULAR HGB CONC 32.7 g/dl (32.0-36.5); MEAN CORPUSCULAR VOLUME 88.7 fl (80.0-96.0); MONO % 8.9 % (0.0-5.0); NEUTROPHILS # 4.9 K/mm3 (1.8-7.7); NEUTROPHILS % 41.8 % (36.0-66.0); RED CELL DISTRIBUTION WIDTH 16.6 % (11.5-14.5)
[2017-05-22 13:02] LABS: WHITE BLOOD COUNT 11.6 K/mm3 (4.0-10.0)
[2017-05-22 13:39] LABS: ANION GAP 11 MEQ/L (8-16); BLOOD UREA NITROGEN 23 MG/DL (7-18); CALCIUM LEVEL 9.2 MG/DL (8.8-10.2); CARBON DIOXIDE LEVEL 24 MEQ/L (21-32); CHLORIDE LEVEL 109 MEQ/L (98-107); CREATININE FOR GFR 0.74 MG/DL (0.55-1.02); FERRITIN 29 NG/ML (8-252); GLOMERULAR FILTRATION RATE > 60.0 (>39); GLUCOSE, FASTING 157 MG/DL (83-110); SODIUM LEVEL 144 MEQ/L (136-145)
== END ==
LOC: M LABDRAW1 11:35
PROVIDERS: ATTEND Physician Assistant Medical
DX: D64.9 Anemia, unspecified (principal); E11.9 Type 2 diabetes mellitus without complications

== ENCOUNTER → 2017-07-13 | Outpatient (CLI) | payer MEDICARE ==
--- NOTE | 2017-07-30 02:05 | ECWPNPC ---
PATIENT NAME: ANNITA CANNON : 1940 GENDER: FEMALE VISIT DATE: 07/13/2017 DISCHARGE DATE: 07/13/17932 VISIT LOCKED DATE TIME: PHYSICIAN: ZABRINA LINK RESOURCE: ZABRINA LINK REASON FOR APPOINTMENT 1. BACK HISTORY OF PRESENT ILLNESS HISTORY OF PRESENT ILLNESS: HERE FOR F/U OF CHRONIC LOW BACK PAIN R>L.ALSO C/O OF NECK PAIN AND STIFFNESS.DID NOT DO PT .NOT INTERESTED IN DOING PT.RATING VAS 8/10.FINDS OXYCODONE 10/325 PRN HELPFUL. DENIES SIDE EFFECTS.TAKING CYMBALTA 30MG BID PRESCRIBED BY PRIMARY CARE FINDS IT HELPFUL.INTERVENTIONAL PROCEDURES HERE HAVE NOT BEEN HELPFUL.USING PERCOCET 10/325 FOR SEVERE EPISODES WITH GOOD EFFECT #45/MONTH SUPPLY.DENIES SIDE EFFECTS. PAIN THE PATIENT DESCRIBES THE PAIN... THE PATIENT DESCRIBES THE PAIN... THE PATIENT DESCRIBES THE PAIN... THE PATIENT DESCRIBES THE PAIN... THE PATIENT DESCRIBES THE PAIN... THE PATIENT DESCRIBES THE PAIN... FALL RISK SCREENING: SCREENING :NO FALLS IN THE PAST YEAR CURRENT MEDICATIONS TAKING ACETAMINOPHEN 500 MG CAPSULE 1 CAPSULE NEEDED ORALLY EVERY 6 HRS TAKING TRIAMCINOLONE ACETONIDE 0.5 % OINTMENT 1 APPLICATION TO AFFECTED AREA EXTERNALLY TO VULVA TWICE A DAY TAKING OCCUVITE TABLET 1 TAB(S) ORAL TWICE DAILY TAKING BLOOD GLUCOSE TEST STRIP - - DX: 250.00 - DAILY TAKING BLOOD GLUCOSE TEST DX: 250.00 STRIP DIRECTED IN VITRO DAILY TAKING SPACER/AERO CHAMBER MOUTHPIECE 0 MISCELLANEOUS DIRECTED - - TAKING MUCINEX 600 MG TABLET EXTENDED RELEASE 12 HOUR 1 TABLET NEEDED ORALLY EVERY 12 HRS TAKING TIZANIDINE HCL 2 MG TABLET 1-2 TABS NEEDED ORALLY AT BEDTIME, NOTES: PAIN CLINIC TAKING ASPIR-81 81 MG TABLET DELAYED RELEASE 1 TABLET ORALLY ONCE A DAY TAKING MAGNESIUM OXIDE 500 MG TABLET 1 TAB WITH MEAL ORALLY DAILY TAKING NAPROXEN 500 MG TABLET 1 TABLET NEEDED ORALLY EVERY 12 HRS TAKING VITAMIN D 2000 UNIT TABLET 1 TABLET ORALLY DAILY WITH MEAL TAKING FLONASE 50 MCG/ACT SUSPENSION 1 SPRAY IN EACH NOSTRIL NASALLY ONCE A DAY TAKING ALBUTEROL SULFATE HFA 108 (90 BASE) MCG/ACT AEROSOL SOLUTION 2 PUFFS INHALATION FOUR TIMES A DAY IF NEEDED TAKING NEEDLE (DISP) BD NEEDLES FOR VICTOZA 1 SUBCUTANEOUSLY DAILY DX:E11.9 TAKING FERROUS SULFATE 325 (65 FE) MG TABLET 1 TABLET ORALLY TID TAKING BLOOD GLUCOSE TEST - STRIP DIRECTED IN VITRO DAILY DX E11.9 TAKING CALCIUM + D 600-200 MG-UNIT TABLET 1 TABLET WITH FOOD ORALLY ONCE A DAY TAKING ESOMEPRAZOLE MAGNESIUM 20 MG CAPSULE DELAYED RELEASE 1 CAPSULE ORALLY TWICE DAILY NEEDED WITH NAPROXEN TAKING ATORVASTATIN CALCIUM 40 MG TABLET 1 TABLET ORALLY ONCE A DAY TAKING RANITIDINE HCL 150 MG CAPSULE 1 CAPSULE AT BEDTIME ORALLY ONCE A DAY NEEDED TAKING GLIPIZIDE XL 5 MG TABLET EXTENDED RELEASE 24 HOUR 1 TABLET ORALLY ONCE A DAY WITH MEAL TAKING METFORMIN HCL 1000 MG TABLET 1 TABLET WITH MEALS ORALLY TWICE A DAY TAKING VICTOZA 1.8 MG SOLN 1.8 MG INJECTION SUBCUTANEOUSLY DAILY TAKING CYMBALTA 60 MG CAPSULE DELAYED RELEASE PARTICLES 1 CAPSULE ORALLY ONCE A DAY TAKING ZESTORETIC 10-12.5 MG TABLET 1 TABLET ORALLY ONCE A DAY TAKING ATENOLOL 50 MG TABLET 1 TABLET ORALLY ONCE A DAY TAKING MICONAZOLE NITRATE 2 % CREAM 1 APPLICATION TO AFFECTED SKIN FOLDS IN GROIN EXTERNALLY TWICE A DAY NEEDED TAKING PERCOCET 10-325 MG TABLET 1 CAP(S) ORALLY Q4H PRN MDD3 NOT-TAKING VOLTAREN 1 % GEL EXTERNALLY DIRECTED, NOTES: PAIN CLINIC NOT-TAKING PREDNISONE 20 MG TABLET 2 TABS WITH FOOD ORALLY ONCE A DAY NOT-TAKING AMOXICILLIN 875 MG TABLET 1 TABLET ORALLY TWICE DAILY NOT-TAKING GUAIFENESIN-CODEINE 100-10 MG/5ML SOLUTION 5 ML ORALLY EVERY 4 HRS NEEDED FOR COUGH NOT-TAKING FLUOCINONIDE 0.05 % OINTMENT 1 APPLICATION TO AFFECTED AREA ON ELBOWS EXTERNALLY TWICE A DAY TO ELBOWS NEEDED FOR TWO WEEKS NOT-TAKING DERM OTIC 0.01% OIL 5 GTTS TO RIGHT EAR OTIC TWICE DAILY NOT-TAKING ESTRING 2 MG RING 1 RING WTW VAGINAL 90 DAYS NOT-TAKING OXYBUTYNIN CHLORIDE ER 5 MG TABLET EXTENDED RELEASE 24 HOUR 1 TABLET ORALLY ONCE A DAY MEDICATION LIST REVIEWED AND RECONCILED WITH THE PATIENT PAST MEDICAL HISTORY TYPE II DIABETES OSTEOPENIA DEXA NL 10/28/2012 HEMATURIA DEPRESSION ANXIETY HYPERTENSION, ESSENTIAL ALLERGIC RHINITIS DIVERTICULOSIS HYPERLIPIDEMIA, MIXED ARTHRITIS ESOPHAGEAL REFLUX DEGENERATIVE DISC DISEASE ALLERGIES N.K.D.A. SOCIAL HISTORY GENERAL: TOBACCO USE ARE YOU A: FORMER SMOKER , ADDITIONAL FINDINGS: TOBACCO NON-USER CURRENT NON-SMOKER . BMI CARE GOAL FOLLOW-UP ABOVE NORMAL BMI FOLLOW-UPDIETARY MANAGEMENT EDUCATION, GUIDANCE, AND COUNSELING, GIVING ENCOURAGEMENT TO EXERCISE ALCOHOL SCREENING POINTS: 1, INTERPRETATION: NEGATIVE. 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 DIET: CARBOHYDRATE CONTROLLED. EXERCISE: NO REGULAR EXERCISE - LIMITED BY BACK PAIN. OTHERS AT HOME: DAUGHTER, MARTHA AND SON-MAXIMINO. LEARNING BARRIERS / SPECIAL NEEDS ABILITY TO UNDERSTAND VERBAL INSTRUCTIONS GOOD , ABILITY TO UNDERSTAND WRITTEN INSTRUCTIONS GOOD , KNOWLEDGE OF EDUCATIONAL NEEDS/TREATMENT PLAN GOOD , QUAKER? NO , LEARNING PREFERENCE NO PREFERENCE , ORIENTED TO PLAN OF CARE: PATIENT , PAIN MANAGEMENT PATIENT . MISCELLANEOUS: SHE IDENTIFIES DAUGHTER, MARTHA JULIAN, OR DAUGHTER PAT GERMAIN, HER ALTERNATE DECISION-MAKER SHOULD SHE BE UNABLE TO MAKE HER OWN MEDICAL DECISIONS. PAIN CLINIC PFS, CLERGY, PUBLIC HEALTH REFERRALS PFS REFERRAL NEEDED?NO CLERGY REFERRAL NEEDED?NO PUBLIC HEALTH REFERRAL NEEDED?NO HAS THE PATIENT BEEN EDUCATED REGARDING HIS/HER PLAN OF CARE?YES HAS THE PATIENT BEEN EDUCATED REGARDING PAIN, THE RISK FOR PAIN, THE IMPORTANCE OF EFFECTIVE PAIN MANAGEMENT, AND THE PAIN ASSESSMENT PROCESS?YES ADVANCE DIRECTIVES HEALTH CARE PROXY?NO WOULD YOU LIKE MORE INFORMATION?YES 07/13/17 09 INFORMATION PACKET GIVEN TO PT. AD DO YOU HAVE A DNR?NO WOULD YOU LIKE MORE INFORMATION?NO LIVING WILL?NO WOULD YOU LIKE MORE INFORMATION?NO POWER OF PLUMBING AND HEATING CONTRACTOR?NO WOULD YOU LIKE MORE INFORMATION?NO NO DOMESTIC VIOLENCE DO YOU FEEL SAFE IN YOUR ENVIRONMENT?YES 07/13/17 0903 REVIEWED AD. REVIEW OF SYSTEMS REVIEWED BY: PROVIDER: ZABRINA NOEL . CONSTITUTIONAL: ANY CHANGE IN YOUR MEDICAL CONDITION? NO . CHILLS NO . FEVER NO . INFECTION: DO YOU HAVE NEW INFECTIONS? NO . DO YOU HAVE HISTORY OF MRSA? NO . MUSCULOSKELETAL: ANY NEW PATTERNS OF PAIN OR NUMBNESS? NO . GASTROENTEROLOGY: ANY NEW CHANGE IN BOWEL CONTROL? NO . GENITOURINARY: ANY NEW CHANGE IN BLADDER CONTROL? NO . IS THERE A CHANCE YOU COULD BE ? NO . HEMATOLOGY/LYMPH: DO YOU TAKE ANY BLOOD THINNERS? (FOR EXAMPLE- COUMADIN, PLAVIX, AGGRENOX, PLATEL, PRADAXA, OR XARELTO) NO . WHEN WAS YOUR LAST DOSE? DATE: TIME: . NEUROLOGY: HAVE YOU FALLEN IN THE PAST 6 MONTHS? NO . ANY NEW EXTREMITY NUMBNESS OR WEAKNESS? NO . CARDIOLOGY: DO YOU HAVE A PACEMAKER OR DEFIBRILLATOR? NO . RESPIRATORY: HAVE YOU BEEN SICK IN THE PAST WEEK? NO . FEVER NO . FLU LIKE SYMPTOMS? NO . COUGH NO . INTEGUMENTARY: DO YOU HAVE ANY RASHES OR OPEN SORES? NO . ALLERGIC/IMMUNO: ARE YOU ALLERGIC TO SHELLFISH OR IV DYE? NO . ANY NEW ALLERGIES? NO . PSYCHIATRIC: DO YOU HAVE THOUGHTS OF HURTING YOURSELF OR SOMEONE ELSE? NO . ARE YOU ABUSED, NEGLECTED, OR IN AN UNSAFE ENVIRONMENT? NO . ENDOCRINOLOGY: ARE YOU DIABETIC? YES, FSBS THIS A.M. 180 . OTHER: DO YOU NEED ANY PRESCRIPTIONS? YES . IF YES, PLEASE LIST: PERCOCET . ANY NEW PROBLEMS WITH YOUR MEDICATIONS? NO . WHEN DID YOU LAST EAT? ____ . WHEN DID YOU LAST DRINK? ____ . WHAT DID YOU LAST DRINK? ____ . NAME OF PERSON DRIVING YOU HOME? ____ . DO YOU HAVE ANY OTHER QUESTIONS OR CONCERNS NO . VITAL SIGNS WT 172 LBS, HT 62 IN, BMI 31.46 INDEX, BP 198/79 MM HG, REPEAT BP 159/72 MM HG, HR 69 /MIN, RR 16 /MIN, TEMP 96.6 F, OXYGEN SAT % 95, BLOOD GLUCOSE LEVEL 198/79, REVIEWED BY: AD. EXAMINATION GENERAL EXAMINATION: LUNGS:LUNG SOUNDS ARE CLEAR. HEART:HEART RATE REGULAR. MUSCULOSKELETAL:*. LUMBAR SACRAL SPINEMUSCLE STRENGTH TESTING 5/5 BILATERAL. PALPATION: POSITIVE FOR PAIN OVER L/S SPINE. + FOR PAIN OVER L/S PARSPINAL ON RIGHT. TRIGGER POINTS:, . ROJM TESTING WITH NO INCREASE IN PAIN. NORMAL STEADY GAIT.. ASSESSMENTS BILATERAL LOW BACK PAIN WITH RIGHT-SIDED SCIATICA - M54.41 (PRIMARY) CHRONIC PRESCRIPTION OPIATE USE - Z79.891 TREATMENT BILATERAL LOW BACK PAIN WITH RIGHT-SIDED SCIATICA REFILL PERCOCET TABLET, 10-325 MG, 1 CAP(S), ORALLY, Q4H PRN MDD3, 30 DAY(S), 45, REFILLS 0 NOTES: ISTOP REGISTRY REVIEWED AND DEMNOSTRATES COMPLLIANCE. BRINGS IN MEDICATIONS WHICH IS APPROPRIATE FOR WHAT WAS DISPENSED. RECENT URINE TOXICOLOGY REVIEWED. NO UNAUTHORIZED MEDICATIONS. NO ILLICIT SUBSTANCES AND PRESCRIBED MEDICATIONS WERE PRESENT. , RISKS AND BENEFITS OF NARCOTIC/OPIOD MEDICATIONS WERE REVIEWED WITH PATIENT - THIS INCLUDES BUT IS NOT LIMITED TO RISK OF DEPENDANCE/DEVELOPMENT OF ADDICTION, MOOD DISTURBANCE AND DEPRESSION, OSTEOPOROSIS, HORMONAL AND LABIDAL CHANGES, RESPIRATORY DEPRESSION AND . PATIENT IS ADVISED NOT TO DRIVE WHILE ON THESE MEDICATIONS, FALLS CARE PLAN: 1. RECOMMEND REMOVING ALL THROW RUGS. 2. RECOMMEND NIGHT LIGHTS 3. RECOMMEND WEARING RUBBER SOLED SHOES AND TO NOT GO BAREFOOT. 4.. ADVISED TO CHANGE POSITION SLOWLY FROM SUPINE TO STANDING TO AVOID DIZZINESS. 5. ADVISED TO USE ASSISTIVE DEVICE SUCH CANE OR WALKER 6. USE LIF[employer] SERVICES OR KEEP PORTABLE PHONE READILY AVAILABLE. PROCEDURE CODES FA211 ESTABILISHED PATIENT [facility] FACILITY CHARGE G8783 BP SCR PRFRM RCMDD DEFIND SCR INTVL G8730 PAIN ASSESS POS TOOL F/U PLAN DOC 3016F PT SCRND UNHLTHY [place] USE 1124F ACP DISCUSS-NO DSCNMKR DOCD 1036F TOBACCO NON-USER 0518F FALL PLAN OF CARE DOCD G8427 DOC MEDS VERIFIED W/PT OR RE G8417 BMI >=30 CALCUATE W/FOLLOWUP 3288F FALL RISK ASSESSMENT DOCD DISPOSITION & COMMUNICATION FOLLOW UP 3 MONTHS ELECTRONICALLY SIGNED BY BERT TORRES ON 07/27/2017 AT 09:03 PM EDT DISCLAIMER : THIS IS A VISIT SUMMARY EXTRACTED FROM THE [employer] CHART. IT IS NOT A COPY OF THE [employer] PROGRESS NOTE. MTDD
== END ==
LOC: M PAIN 08:40
PROVIDERS: ATTEND Nurse Practitioner Family
DX: M54.41 Lumbago with sciatica, right side (principal); G89.29 Other chronic pain; I10 Essential (primary) hypertension; E78.5 Hyperlipidemia, unspecified; E11.9 Type 2 diabetes mellitus without complications; K21.9 Gastro-esophageal reflux disease without esophagitis; Z79.891 Long term (current) use of opiate analgesic; Z79.899 Other long term (current) drug therapy; Z79.84 Long term (current) use of oral hypoglycemic drugs; Z79.82 Long term (current) use of aspirin

== ENCOUNTER → 2017-08-17 | Outpatient (REF) | payer MEDICARE ==
[2017-08-17 11:10] LABS: BASO # 0.1 10^3/uL (0.0-0.2); BASO % 0.7 % (0.0-1.0); EOS # 0.3 10^3/uL (0.0-0.50); EOS % 2.6 % (0.0-3.0); IMMATURE GRANULOCYTE % 0.8 % (0-0); LYMPH # 4.2 10^3/uL (1.5-4.5); LYMPH % 36.8 % (24.0-44.0); MEAN CORPUSCULAR HEMOGLOBIN 29.1 pg (27.0-33.0); MEAN CORPUSCULAR HGB CONC 31.8 g/dl (32.0-36.5); MEAN CORPUSCULAR VOLUME 91.5 fl (80.0-96.0); MONO % 9.1 % (0.0-5.0); NEUTROPHILS # 5.7 10^3/uL (1.8-7.7); PLATELET COUNT, AUTOMATED 393 10^3/uL (150-450); RED CELL DISTRIBUTION WIDTH 16.6 % (11.5-14.5); WHITE BLOOD COUNT 11.4 10^3/uL (4.0-10.0)
[2017-08-17 11:29] LABS: ALBUMIN 3.4 GM/DL (3.2-5.2); ALBUMIN/GLOBULIN RATIO 1.03 (1.00-1.93); ALKALINE PHOSPHATASE 83 U/L (45-117); ALT/SGPT 23 U/L (12-78); ANION GAP 5 MEQ/L (8-16); AST/SGOT 13 U/L (7-37); BILIRUBIN,TOTAL 0.4 MG/DL (0.2-1.0); BLOOD UREA NITROGEN 24 MG/DL (7-18); CALCIUM LEVEL 8.9 MG/DL (8.8-10.2); CARBON DIOXIDE LEVEL 29 MEQ/L (21-32); CHLORIDE LEVEL 106 MEQ/L (98-107); CHOLESTEROL LEVEL 138 MG/DL (<200); CREATININE FOR GFR 0.87 MG/DL (0.55-1.02); FERRITIN 22 NG/ML (8-252); GLOMERULAR FILTRATION RATE > 60.0 (>39); GLUCOSE, FASTING 134 MG/DL (83-110); SODIUM LEVEL 140 MEQ/L (136-145); T UPTAKE 33 % (30-39); THYROXINE (T4) 7.7 UG/DL (4.5-12.0); TOTAL PROTEIN 6.7 GM/DL (6.4-8.2); TRIGLYCERIDES LEVEL 129 MG/DL (<150)
== END ==
LOC: M LABDRAW1 08:15
PROVIDERS: ATTEND Physician Assistant Medical
DX: E11.9 Type 2 diabetes mellitus without complications (principal)

== ENCOUNTER 2017-09-25 09:36 | Emergency (ER) | payer MEDICARE ==
[~2017-09-25] VITALS: Ht 162.6 cm; Wt 82.7 kg
[2017-09-25] MEDS ORDERED: CITA10TA5 (09:45)
[2017-09-25] MEDS ORDERED: DULO1CAP3 (09:45)
[2017-09-25] MEDS ORDERED: RANI150T (09:45)
[2017-09-25] MEDS ORDERED: GLIP-163 (09:45)
[2017-09-25] MEDS ORDERED: NAPR500T PO (10:57)
[2017-09-25] MEDS ORDERED: VALI2TAB PO (10:57)
--- NOTE | 2017-09-25 10:59 | REP ---
RIGHT SHOULDER: Three views of the right shoulder are performed. There is no acute fracture or dislocation. There is moderate narrowing and spurring at the acromioclavicular joint. There is mild narrowing and spurring at the glenohumeral joint. IMPRESSION: Degenerative changes without fracture or dislocation. Signed by Mathew Fry MD 09/25/2017 11:53 A
[2017-09-25 11:06] VITALS: BP 134/65
== END 2017-09-25 11:08 | disposition home or self-care (01) ==
LOC: M ED 09:36
DX: M19.011 Primary osteoarthritis, right shoulder (principal); S29.012A Strain of muscle and tendon of back wall of thorax, initial encounter; X58.XXXA Exposure to other specified factors, initial encounter; Y92.89 Other specified places as the place of occurrence of the external cause; Y93.89 Activity, other specified; Y99.8 Other external cause status; E11.9 Type 2 diabetes mellitus without complications; D64.9 Anemia, unspecified; Z79.899 Other long term (current) drug therapy; Z79.84 Long term (current) use of oral hypoglycemic drugs; Z88.5 Allergy status to narcotic agent; Z88.8 Allergy status to other drugs, medicaments and biological substances; Z87.891 Personal history of nicotine dependence

== ENCOUNTER → 2017-10-08 | Outpatient (REF) | payer MEDICARE ==
[2017-10-08 12:12] LABS: BASO # 0.2 10^3/uL (0.0-0.2); BASO % 1.2 % (0.0-1.0); EOS # 0.5 10^3/uL (0.0-0.50); EOS % 3.8 % (0.0-3.0); HEMATOCRIT 37.5 % (36.0-47.0); HEMOGLOBIN 12.2 g/dl (12.0-16.0); IMMATURE GRANULOCYTE # 0.2 10^3/uL (0-0); IMMATURE GRANULOCYTE % 1.7 % (0-0); LYMPH % 38.3 % (24.0-44.0); MEAN CORPUSCULAR HEMOGLOBIN 30.3 pg (27.0-33.0); MEAN CORPUSCULAR HGB CONC 32.5 g/dl (32.0-36.5); MEAN CORPUSCULAR VOLUME 93.1 fl (80.0-96.0); MONO # 1.5 10^3/uL (0.0-0.8); MONO % 12.1 % (0.0-5.0); NEUTROPHILS # 5.2 10^3/uL (1.8-7.7); NEUTROPHILS % 42.9 % (36.0-66.0); PLATELET COUNT, AUTOMATED 360 10^3/uL (150-450); RED BLOOD COUNT 4.03 10^6/uL (4.00-5.40); RED CELL DISTRIBUTION WIDTH 15.1 % (11.5-14.5)
[2017-10-08 12:14] LABS: LYMPH # 4.6 10^3/uL (1.5-4.5)
[2017-10-08 12:18] LABS: ESTIMATED AVERAGE GLUCOSE 169 MG/DL (60-110); HEMOGLOBIN A1c 7.5 %
[2017-10-08 12:27] LABS: ALBUMIN 3.4 GM/DL (3.2-5.2); ALKALINE PHOSPHATASE 95 U/L (45-117); ALT/SGPT 27 U/L (12-78); ANION GAP 5 MEQ/L (8-16); AST/SGOT 23 U/L (7-37); BILIRUBIN,TOTAL 0.3 MG/DL (0.2-1.0); BLOOD UREA NITROGEN 32 MG/DL (7-18); CALCIUM LEVEL 9.2 MG/DL (8.8-10.2); CARBON DIOXIDE LEVEL 32 MEQ/L (21-32); CHLORIDE LEVEL 104 MEQ/L (98-107); CREATININE FOR GFR 1.15 MG/DL (0.55-1.02); FERRITIN 47 NG/ML (8-252); GLOMERULAR FILTRATION RATE 48.6 (>39); GLUCOSE, FASTING 147 MG/DL (83-110); IRON (FE) 62 UG/DL (50-170); POTASSIUM SERUM 4.7 MEQ/L (3.5-5.1); SODIUM LEVEL 141 MEQ/L (136-145); TOTAL PROTEIN 6.8 GM/DL (6.4-8.2)
== END ==
LOC: M LABDRAW1 10:44
DX: E11.9 Type 2 diabetes mellitus without complications (principal)
CPT/HCPCS: 83540

== ENCOUNTER → 2017-11-12 | Outpatient (CLI) | payer OTHER | LOC: M PAIN 08:30 | DX: M54.41 Lumbago with sciatica, right side (principal); E11.9 Type 2 diabetes mellitus without complications; I10 Essential (primary) hypertension; E78.5 Hyperlipidemia, unspecified; Z79.82 Long term (current) use of aspirin; Z79.84 Long term (current) use of oral hypoglycemic drugs; Z79.891 Long term (current) use of opiate analgesic; Z79.899 Other long term (current) drug therapy | CPT/HCPCS: G0463 ==

== ENCOUNTER 2017-11-23 12:19 | Emergency (ER) | payer OTHER ==
[2017-11-23] MEDS: diazePAM 5 MG TAB PO (13:15)
[2017-11-23] MEDS: METHOCARBAMOL 750 MG TAB PO (13:15)
== END 2017-11-23 13:49 | disposition home or self-care (01) ==
LOC: M ED 12:19
DX: M50.30 Other cervical disc degeneration, unspecified cervical region (principal); Z87.891 Personal history of nicotine dependence
CPT/HCPCS: 99283

== ENCOUNTER → 2017-12-08 | Outpatient (CLI) | payer OTHER | LOC: M PAIN 10:45 | DX: M54.2 Cervicalgia (principal); G89.29 Other chronic pain; E11.9 Type 2 diabetes mellitus without complications; I10 Essential (primary) hypertension; E78.5 Hyperlipidemia, unspecified; Z79.82 Long term (current) use of aspirin; Z79.84 Long term (current) use of oral hypoglycemic drugs; Z79.891 Long term (current) use of opiate analgesic; Z79.899 Other long term (current) drug therapy; Z87.891 Personal history of nicotine dependence | CPT/HCPCS: G0463 ==

== ENCOUNTER → 2017-12-14 | Outpatient (CLI) | payer OTHER ==
[2017-12-14 10:07] LABS: HEMATOCRIT 37.4 % (36.0-47.0); HEMOGLOBIN 12.3 g/dl (12.0-16.0); MEAN CORPUSCULAR HEMOGLOBIN 30.8 pg (27.0-33.0); MEAN CORPUSCULAR HGB CONC 32.9 g/dl (32.0-36.5); MEAN CORPUSCULAR VOLUME 93.5 fl (80.0-96.0); PLATELET COUNT, AUTOMATED 445 10^3/uL (150-450); RED CELL DISTRIBUTION WIDTH 14.8 % (11.5-14.5); WHITE BLOOD COUNT 12.5 10^3/uL (4.0-10.0)
[2017-12-14 10:40] LABS: ALBUMIN/GLOBULIN RATIO 0.79 (1.00-1.93); ALKALINE PHOSPHATASE 89 U/L (45-117); ALT/SGPT 24 U/L (12-78); ANION GAP 7 MEQ/L (8-16); AST/SGOT 19 U/L (7-37); BILIRUBIN,TOTAL 0.3 MG/DL (0.2-1.0); BLOOD UREA NITROGEN 18 MG/DL (7-18); CALCIUM LEVEL 8.9 MG/DL (8.8-10.2); CARBON DIOXIDE LEVEL 29 MEQ/L (21-32); CHLORIDE LEVEL 104 MEQ/L (98-107); CHOLESTEROL LEVEL 92 MG/DL (<200); CHOLESTEROL RISK RATIO 2.486 (<5); CREATININE FOR GFR 0.95 MG/DL (0.55-1.30); GLOMERULAR FILTRATION RATE > 60.0 (>39); GLUCOSE, FASTING 155 MG/DL (70-100); HDL CHOLESTEROL 37 MG/DL (>40); NON-HDL-C 55 MG/DL; POTASSIUM SERUM 5.1 MEQ/L (3.5-5.1); SODIUM LEVEL 140 MEQ/L (136-145); TOTAL PROTEIN 6.8 GM/DL (6.4-8.2); TRIGLYCERIDES LEVEL 85 MG/DL (<150)
[2017-12-14 10:45] LABS: TOTAL 25(OH) VITAMIN D 39.5 NG/ML (30.0-100.0)
[2017-12-14 11:12] LABS: ESTIMATED AVERAGE GLUCOSE 169 MG/DL (60-110); HEMOGLOBIN A1c 7.5 %
== END ==
LOC: M LAB 09:20
DX: D64.9 Anemia, unspecified (principal); R53.83 Other fatigue; I70.0 Atherosclerosis of aorta; R94.31 Abnormal electrocardiogram [ECG] [EKG]; Z79.899 Other long term (current) drug therapy; E11.9 Type 2 diabetes mellitus without complications
CPT/HCPCS: 71046

== ENCOUNTER → 2018-01-02 | Outpatient (CLI) | payer OTHER | LOC: M RAD 09:25 | DX: M47.812 Spondylosis without myelopathy or radiculopathy, cervical region (principal) | CPT/HCPCS: 72141 ==

== ENCOUNTER → 2018-01-06 | Outpatient (CLI) | payer OTHER | LOC: M PAIN 10:45 | DX: G89.29 Other chronic pain (principal); M54.41 Lumbago with sciatica, right side; M47.22 Other spondylosis with radiculopathy, cervical region; E11.9 Type 2 diabetes mellitus without complications; M85.80 Other specified disorders of bone density and structure, unspecified site; F32.9 Major depressive disorder, single episode, unspecified; F41.9 Anxiety disorder, unspecified; I10 Essential (primary) hypertension; J30.9 Allergic rhinitis, unspecified; E78.2 Mixed hyperlipidemia; K21.9 Gastro-esophageal reflux disease without esophagitis; Z79.82 Long term (current) use of aspirin; Z79.891 Long term (current) use of opiate analgesic; Z79.84 Long term (current) use of oral hypoglycemic drugs; Z79.899 Other long term (current) drug therapy; Z96.651 Presence of right artificial knee joint; Z87.891 Personal history of nicotine dependence | CPT/HCPCS: G0463 ==

== ENCOUNTER → 2018-03-08 | Outpatient (CLI) | payer OTHER | LOC: M PAIN 10:15 | DX: M54.41 Lumbago with sciatica, right side (principal); G89.29 Other chronic pain; E11.9 Type 2 diabetes mellitus without complications; F32.9 Major depressive disorder, single episode, unspecified; F41.9 Anxiety disorder, unspecified; I10 Essential (primary) hypertension; J30.89 Other allergic rhinitis; E78.5 Hyperlipidemia, unspecified; M19.90 Unspecified osteoarthritis, unspecified site; M85.80 Other specified disorders of bone density and structure, unspecified site; Z79.82 Long term (current) use of aspirin; Z79.84 Long term (current) use of oral hypoglycemic drugs; Z79.891 Long term (current) use of opiate analgesic; Z79.899 Other long term (current) drug therapy; Z96.651 Presence of right artificial knee joint; Z87.891 Personal history of nicotine dependence | CPT/HCPCS: G0463 ==

== ENCOUNTER → 2018-06-15 | Outpatient (CLI) | payer OTHER | LOC: M PAIN 08:30 | DX: M54.41 Lumbago with sciatica, right side (principal); M85.80 Other specified disorders of bone density and structure, unspecified site; E11.9 Type 2 diabetes mellitus without complications; F32.9 Major depressive disorder, single episode, unspecified; F41.9 Anxiety disorder, unspecified; I10 Essential (primary) hypertension; E78.5 Hyperlipidemia, unspecified; K21.9 Gastro-esophageal reflux disease without esophagitis; Z79.891 Long term (current) use of opiate analgesic; Z87.891 Personal history of nicotine dependence; Z96.651 Presence of right artificial knee joint; Z79.84 Long term (current) use of oral hypoglycemic drugs; Z79.899 Other long term (current) drug therapy | CPT/HCPCS: G0463 ==

== ENCOUNTER → 2018-08-16 | Outpatient (CLI) | payer OTHER | LOC: M PAIN 09:00 | DX: M54.41 Lumbago with sciatica, right side (principal); G89.29 Other chronic pain; E11.9 Type 2 diabetes mellitus without complications; I10 Essential (primary) hypertension; J30.9 Allergic rhinitis, unspecified; E78.2 Mixed hyperlipidemia; M19.90 Unspecified osteoarthritis, unspecified site; K21.9 Gastro-esophageal reflux disease without esophagitis; F32.9 Major depressive disorder, single episode, unspecified; F41.9 Anxiety disorder, unspecified; M85.80 Other specified disorders of bone density and structure, unspecified site; Z79.82 Long term (current) use of aspirin; Z79.84 Long term (current) use of oral hypoglycemic drugs; Z79.891 Long term (current) use of opiate analgesic; Z79.899 Other long term (current) drug therapy; Z96.651 Presence of right artificial knee joint; Z87.891 Personal history of nicotine dependence | CPT/HCPCS: G0463 ==

== ENCOUNTER → 2018-10-26 | Outpatient (CLI) | payer MEDICARE, OTHER ==
[~2018-10-26] MED LIST changes: +CITA10TA5; +DULO1CAP3; +GLIP-163; +NAPR-50 PO; +NAPR-885 PO; -NAPR500T3 PO; +RANI150T; +ROBA500T PO; +TIZA2CAP PO; -TIZA2CAP3 PO; +VALI2TAB PO; +VALI5TAB PO
[2018-10-26 11:45] LABS: HEMATOCRIT 39.2 % (36.0-47.0); HEMOGLOBIN 13.5 g/dl (12.0-15.5); MEAN CORPUSCULAR HEMOGLOBIN 33.8 pg (27.0-33.0); MEAN CORPUSCULAR HGB CONC 34.4 g/dl (32.0-36.5); PLATELET COUNT, AUTOMATED 325 10^3/uL (150-450)
[2018-10-26 12:16] LABS: ALBUMIN 3.4 GM/DL (3.2-5.2); BILIRUBIN,TOTAL 0.4 MG/DL (0.2-1.0); CALCIUM LEVEL 8.7 MG/DL (8.8-10.2); CHOLESTEROL RISK RATIO 3.066 (<5); CREATININE FOR GFR 1.2 MG/DL (0.55-1.30); GLOMERULAR FILTRATION RATE 46.1 (>39); THYROID STIMULATING HORMONE 1.3 uIU/ML (0.358-3.740)
--- NOTE | 2018-10-26 19:33 | ECGEPIP ---
Stationary ECG Study [facility] Test Date: 2018-10-26 Pat Name: ANNITA CANNON Department: Room: - Gender: F Senior Applications Architect: [facility] : 1940 Requested By: Herbert Lopez Order Number: [id number] Reading MD: Bacilio Carcamo Measurements Intervals Hartman Rate: 80 P: 64 HI: 148 QRS: -47 QRSD: 112 T: 58 QT: 388 QTc: 450 Interpretive Statements Normal sinus rhythm Left anterior fascicular block Persistent S wave in anterolateral leads suggests pulmonary disease No significant change when compared to prior tracing of 12/14/2017 Electronically Signed On 10-26-2018 19:33:17 EST by Bacilio Carcamo
--- NOTE | 2018-10-27 06:05 | REP ---
Clinical: Preoperative assessment . Comparison: 12/14/2017 . Technique: PA and lateral. Findings: The mediastinum and cardiac silhouette are normal. The lung henson are clear and without acute consolidation, effusion, or pneumothorax. The skeletal structures are intact and normal. Impression: 1. No acute cardiopulmonary process. Electronically Signed by Andrew Gomez MD 10/27/2018 05:57 A
== END ==
LOC: M LAB 11:16
PROVIDERS: ATTEND Family Medicine
DX: G45.9 Transient cerebral ischemic attack, unspecified (principal); I44.4 Left anterior fascicular block; R94.31 Abnormal electrocardiogram [ECG] [EKG]; Z79.899 Other long term (current) drug therapy

== ENCOUNTER 2018-11-09 10:28 | Emergency (ER) | payer MEDICARE ==
[~2018-11-09] VITALS: Ht 162.6 cm; Wt 76.8 kg
[2018-11-09] MEDS ORDERED: BACL10TA2 (10:37)
[2018-11-09] MEDS ORDERED: FERR1TAB8 (10:37)
--- NOTE | 2018-11-09 11:11 | ED PDOC ---
Post-Departure Follow-Up SPOKE WITH DR. AYO KAPOOR, PT'S PCP, AT THIS TIME. ADVISED PT STATES NO ACUTE TIA 'S IN THE PAST WEEK, BUT C/O BLURRED VISION THAT'S CONTINUED. PT PRESENTED TO THE ED TODAY WITH A SCRIPT FOR AN OUTPT MRI FOR HER SUSPECTED RECURRENT TIA'S THAT PT HAS BEEN HAVING. ADVISED WILL PERFORM A GOOD NEURO EXAM AND IF ANY ABNORMAL FINDINGS, WILL ORDER MRI. DR. KAPOOR ADVISED TO REFER TO NEURO NO MATTER WHAT WE FIND TODAY. ADVISED WILL GIVE THE PT INFO FOR [facility] NEURO. GERMANIA VAUGHN PA-C Nov 09, 2018 11:11
--- NOTE | 2018-11-09 12:37 | REP ---
MR BRAIN WITHOUT CONTRAST: HISTORY: Headache. COMPARISON: 03/09/2014 Scattered punctate areas of increased signal intensity on T2-weighted images are present in the periventricular and subcortical white matter and massimo. This represents small vessel ischemic disease. There is no intraparenchymal hemorrhage, infarct, mass, or midline shift. The ventricular system and cortical sulci are dilated consistent with minimal volume loss. There is no extracerebral collection. The sinuses are clear. IMPRESSION: 1. Minimal small vessel ischemic disease. 2. Minimal volume loss. Subarachnoid and intraventricular hemorrhage cannot be excluded. Electronically Signed by Can Diaz MD 11/09/2018 12:40 P
[2018-11-09 12:41] VITALS: BP 149/64
== END 2018-11-09 12:48 | disposition home or self-care (01) ==
LOC: M ED 10:28
DX: R51 Headache (principal); Z86.73 Personal history of transient ischemic attack (TIA), and cerebral infarction without residual deficits; E11.9 Type 2 diabetes mellitus without complications; I10 Essential (primary) hypertension

== ENCOUNTER → 2018-11-25 | Outpatient (CLI) | payer OTHER ==
[~2018-11-25] MED LIST changes: +BACL10TA2; +FERR1TAB8
--- NOTE | 2018-12-11 23:36 | ECWPNPC ---
PATIENT NAME: ANNITA CANNON : 1940 GENDER: FEMALE VISIT DATE: 11/25/2018 DISCHARGE DATE: 11/25/18 1006 VISIT LOCKED DATE TIME: PHYSICIAN: ZABRINA LINK RESOURCE: ZABRINA LINK REASON FOR APPOINTMENT 1. BACK HISTORY OF PRESENT ILLNESS HISTORY OF PRESENT ILLNESS: HERE FOR F/U OF CHRONIC NECK PAIN.RATING PAIN VAS 7/10.PAIN IS LOCATED LOW BACK WITH RADIATION INTO RIGHT LEG.PAIN IS WORSE AT NIGHT.FINDS OXYCODONE 10/325 AND SOMA 350MG Q8H PRN EFFECTIVE.REPORTS IMPROVED ABILITY TO TOLERATE ADL'S WITH CURRENT PAIN MEDICATION.DENIES SIDE EFFECTS.DISCUSSED TREATMENT OPTIONS AND PATIENT DOES NOT WISH TO DO INJECTION THERAPY. PAIN THE PATIENT DESCRIBES THE PAIN... THE PATIENT DESCRIBES THE PAIN... THE PATIENT DESCRIBES THE PAIN... THE PATIENT DESCRIBES THE PAIN... THE PATIENT DESCRIBES THE PAIN... THE PATIENT DESCRIBES THE PAIN... PAIN THE PATIENT DESCRIBES THE PAIN... THE PATIENT DESCRIBES THE PAIN... THE PATIENT DESCRIBES THE PAIN... THE PATIENT DESCRIBES THE PAIN... THE PATIENT DESCRIBES THE PAIN... THE PATIENT DESCRIBES THE PAIN... FALL RISK SCREENING: SCREENING : NO FALLS IN THE PAST YEAR. CURRENT MEDICATIONS TAKING OCCUVITE TABLET 1 TAB(S) ORAL TWICE DAILY TAKING BLOOD GLUCOSE TEST STRIP - - DX: 250.00 - DAILY TAKING BLOOD GLUCOSE TEST DX: 250.00 STRIP DIRECTED IN VITRO DAILY TAKING SPACER/AERO CHAMBER MOUTHPIECE 0 MISCELLANEOUS DIRECTED - - TAKING ASPIR-81 81 MG TABLET DELAYED RELEASE 1 TABLET ORALLY ONCE A DAY TAKING MAGNESIUM OXIDE 500 MG TABLET 1 TAB WITH MEAL ORALLY DAILY TAKING VITAMIN D 2000 UNIT TABLET 1 TABLET ORALLY DAILY WITH MEAL TAKING FLONASE 50 MCG/ACT SUSPENSION 1 SPRAY IN EACH NOSTRIL NASALLY ONCE A DAY TAKING ALBUTEROL SULFATE HFA 108 (90 BASE) MCG/ACT AEROSOL SOLUTION 2 PUFFS INHALATION FOUR TIMES A DAY IF NEEDED TAKING NEEDLE (DISP) BD NEEDLES FOR VICTOZA 1 SUBCUTANEOUSLY DAILY DX:E11.9 TAKING FERROUS SULFATE 325 (65 FE) MG TABLET 1 TABLET ORALLY TID TAKING BLOOD GLUCOSE TEST - STRIP DIRECTED IN VITRO DAILY DX E11.9 TAKING CALCIUM + D 600-200 MG-UNIT TABLET 1 TABLET WITH FOOD ORALLY ONCE A DAY TAKING ESOMEPRAZOLE MAGNESIUM 40 MG CAPSULE DELAYED RELEASE 1 CAPSULE ORALLY DAILY TAKING ATORVASTATIN CALCIUM 40 MG TABLET 1 TABLET ORALLY ONCE A DAY TAKING RANITIDINE HCL 150 MG CAPSULE 1 CAPSULE AT BEDTIME ORALLY ONCE A DAY NEEDED TAKING GLIPIZIDE XL 2.5 MG TABLET EXTENDED RELEASE 24 HOUR 1 TABLET ORALLY ONCE A DAY WITH MEAL TAKING METFORMIN HCL 1000 MG TABLET 1 TABLET WITH MEALS ORALLY TWICE A DAY TAKING VICTOZA 1.8 MG SOLN 1.8 MG INJECTION SUBCUTANEOUSLY DAILY TAKING CYMBALTA 60 MG CAPSULE DELAYED RELEASE PARTICLES 1 CAPSULE ORALLY ONCE A DAY TAKING ATENOLOL 50 MG TABLET 1 TABLET ORALLY ONCE A DAY TAKING MICONAZOLE NITRATE 2 % CREAM 1 APPLICATION TO AFFECTED SKIN FOLDS IN GROIN EXTERNALLY TWICE A DAY NEEDED TAKING LUTEIN VISION BLEND - CAPSULE ORALLY TAKING LISINOPRIL-HYDROCHLOROTHIAZIDE 10-12.5 MG TABLET 1 TABLET ORALLY ONCE A DAY TAKING SOMA 350 MG TABLET 1 TABLET NEEDED ORALLY Q8H TID MDD3 FOR 30 DAYS TAKING PERCOCET 10-325 MG TABLET 1 CAP(S) ORALLY Q6H PRN MDD4 TAKING BACLOFEN 10 MG TABLET 1 TABLET WITH FOOD OR MILK ORALLY THREE TIMES A DAY NOT-TAKING ACETAMINOPHEN 500 MG CAPSULE 1 CAPSULE NEEDED ORALLY EVERY 6 HRS NOT-TAKING NAPROXEN 500 MG TABLET 1 TABLET NEEDED ORALLY EVERY 12 HRS NOT-TAKING VOLTAREN 1 % GEL EXTERNALLY DIRECTED, NOTES: PAIN CLINIC NOT-TAKING PREDNISONE 20 MG TABLET 2 TABS WITH FOOD ORALLY ONCE A DAY NOT-TAKING AMOXICILLIN 875 MG TABLET 1 TABLET ORALLY TWICE DAILY NOT-TAKING GUAIFENESIN-CODEINE 100-10 MG/5ML SOLUTION 5 ML ORALLY EVERY 4 HRS NEEDED FOR COUGH NOT-TAKING FLUOCINONIDE 0.05 % OINTMENT 1 APPLICATION TO AFFECTED AREA ON ELBOWS EXTERNALLY TWICE A DAY TO ELBOWS NEEDED FOR TWO WEEKS NOT-TAKING DERM OTIC 0.01% OIL 5 GTTS TO RIGHT EAR OTIC TWICE DAILY NOT-TAKING ESTRING 2 MG RING 1 RING WTW VAGINAL 90 DAYS NOT-TAKING OXYBUTYNIN CHLORIDE ER 5 MG TABLET EXTENDED RELEASE 24 HOUR 1 TABLET ORALLY ONCE A DAY NOT-TAKING TRIAMCINOLONE ACETONIDE 0.5 % OINTMENT 1 APPLICATION TO AFFECTED AREA EXTERNALLY TO VULVA TWICE A DAY NOT-TAKING ZESTORETIC 10-12.5 MG TABLET 1 TABLET ORALLY ONCE A DAY NOT-TAKING ESCITALOPRAM OXALATE 20 MG TABLET 0.5 TABLET ORALLY ONCE A DAY NOT-TAKING OXYBUTYNIN CHLORIDE 5 MG TABLET EXTENDED RELEASE ORALLY NOT-TAKING MUCINEX 600 MG TABLET EXTENDED RELEASE 12 HOUR 1 TABLET NEEDED ORALLY EVERY 12 HRS MEDICATION LIST REVIEWED AND RECONCILED WITH THE PATIENT PAST MEDICAL HISTORY OSTEOPENIA DEXA NL 10/28/2012 TYPE II DIABETES HEMATURIA DEPRESSION ANXIETY HYPERTENSION, ESSENTIAL ALLERGIC RHINITIS DIVERTICULOSIS HYPERLIPIDEMIA, MIXED ARTHRITIS ESOPHAGEAL REFLUX DEGENERATIVE DISC DISEASE ALLERGIES N.K.D.A. SURGICAL HISTORY [facility] & [facility] CHOLECYSTECTOMY BACK SURGERY KNEE SURGERY R 03 APPENDECTOMY KNEE REPLACEMENT R 05 TRANSVAGINAL TAPING/CYSTOSCOPY DR. LEDEZMA 04/12 EGD: HH, GASTRITIS, POLYP - SUSU 11/17 COLONOSCOPY: HEMORRHOIDS, DIVERTICULOSIS - SUSU (F/UP 5YRS) 11/17 FAMILY HISTORY FATHER: 75 YRS, BONE CANCER, DIAGNOSED WITH HEART DISEASE, CANCER MOTHER: 75 YRS, BOWEL OBSTRUCTION, DIAGNOSED WITH DIABETES SIBLINGS: , BROTHER 79 UNKNOWN CAUSE, HAD DIABETES, SISTER DIABETES SOCIAL HISTORY GENERAL: TOBACCO USE ARE YOU A:FORMER SMOKER BMI CARE GOAL FOLLOW-UP ABOVE NORMAL BMI FOLLOW-UPDIETARY MANAGEMENT EDUCATION, GUIDANCE, AND COUNSELING, GIVING ENCOURAGEMENT TO EXERCISE ALCOHOL SCREENING POINTS1 INTERPRETATIONNEGATIVE CAFFEINE CAFFEINE USE?YES 1/DAY COFFEE HIV / HEP-C SCREENING HIV TEST OFFERED TO PATIENT: N/A HEP-C TEST OFFERED TO PATIENT: N/A GNOSTICISM [id number] MOSQUE LANGUAGE LANGUAGES SPOKEN:SAMMARINESE LEARNING BARRIERS / SPECIAL NEEDS ABILITY TO UNDERSTAND VERBAL INSTRUCTIONS GOOD , ABILITY TO UNDERSTAND WRITTEN INSTRUCTIONS GOOD , KNOWLEDGE OF EDUCATIONAL NEEDS/TREATMENT PLAN GOOD , JEWISH? NO , LEARNING PREFERENCE NO PREFERENCE , ORIENTED TO PLAN OF CARE: PATIENT , PAIN MANAGEMENT PATIENT . 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 DIET: CARBOHYDRATE CONTROLLED. EXERCISE: NO REGULAR EXERCISE - LIMITED BY BACK PAIN. OTHERS AT HOME: DAUGHTER, MARTHA AND SON-MAXIMINO. PAIN CLINIC PFS, CLERGY, PUBLIC HEALTH REFERRALS PFS REFERRAL NEEDED?NO CLERGY REFERRAL NEEDED?NO PUBLIC HEALTH REFERRAL NEEDED?NO HAS THE PATIENT BEEN EDUCATED REGARDING HIS/HER PLAN OF CARE?YES HAS THE PATIENT BEEN EDUCATED REGARDING PAIN, THE RISK FOR PAIN, THE IMPORTANCE OF EFFECTIVE PAIN MANAGEMENT, AND THE PAIN ASSESSMENT PROCESS?YES ADVANCE DIRECTIVE ADVANCE DIRECTIVE DISCUSSED WITH PATIENT:YES PT DECLINES HOSPITALIZATION/MAJOR DIAGNOSTIC PROCEDURE SURGERY RELATED REVIEW OF SYSTEMS REVIEWED BY: PROVIDER: ZABRINA NOEL . CONSTITUTIONAL: ANY CHANGE IN YOUR MEDICAL CONDITION? YES, DM AND MINI STROKES X 3 . CHILLS NO . FEVER NO . INFECTION: DO YOU HAVE NEW INFECTIONS? NO . DO YOU HAVE HISTORY OF MRSA? NO . MUSCULOSKELETAL: ANY NEW PATTERNS OF PAIN OR NUMBNESS? NO . GASTROENTEROLOGY: ANY NEW CHANGE IN BOWEL CONTROL? NO . GENITOURINARY: ANY NEW CHANGE IN BLADDER CONTROL? YES, FREQUENCY . IS THERE A CHANCE YOU COULD BE ? NO . HEMATOLOGY/LYMPH: DO YOU TAKE ANY BLOOD THINNERS? (FOR EXAMPLE- COUMADIN, PLAVIX, AGGRENOX, PLATEL, PRADAXA, OR XARELTO) NO . WHEN WAS YOUR LAST DOSE? DATE: TIME: . NEUROLOGY: HAVE YOU FALLEN IN THE PAST 12 MONTHS? NO . ANY NEW EXTREMITY NUMBNESS OR WEAKNESS? NO . CARDIOLOGY: DO YOU HAVE A PACEMAKER OR DEFIBRILLATOR? NO . RESPIRATORY: HAVE YOU BEEN SICK IN THE PAST WEEK? NO . FEVER NO . FLU LIKE SYMPTOMS? NO . COUGH NO . INTEGUMENTARY: DO YOU HAVE ANY RASHES OR OPEN SORES? NO . ALLERGIC/IMMUNO: ARE YOU ALLERGIC TO IV DYE? NO . ANY NEW ALLERGIES? NO . PSYCHIATRIC: DO YOU HAVE THOUGHTS OF HURTING YOURSELF OR SOMEONE ELSE? NO . ARE YOU ABUSED, NEGLECTED, OR IN AN UNSAFE ENVIRONMENT? NO . ENDOCRINOLOGY: ARE YOU DIABETIC? YES . OTHER: DO YOU NEED ANY PRESCRIPTIONS? NO . IF YES, PLEASE LIST: ____ . ANY NEW PROBLEMS WITH YOUR MEDICATIONS? NO . WHEN DID YOU LAST EAT? ____ . WHEN DID YOU LAST DRINK? ____ . WHAT DID YOU LAST DRINK? ____ . NAME OF PERSON DRIVING YOU HOME? ____ . DO YOU HAVE ANY OTHER QUESTIONS OR CONCERNS NO . VITAL SIGNS WT 174.2 LBS, HT 62 IN, BMI 31.86 INDEX, BP 128/69 MM HG, HR 67 /MIN, RR 18 /MIN, TEMP 96.4 F, OXYGEN SAT % 96%, NA INITIALS SC 09:29, REVIEWED BY: EM. EXAMINATION GENERAL EXAMINATION: LUNGS:LUNG SOUNDS ARE CLEAR . HEART:HEART RATE REGULAR . MUSCULOSKELETAL:* . LUMBAR SACRAL SPINEMUSCLE STRENGTH TESTING 5/5 BILATERAL. PALPATION: POSITIVE FOR PAIN OVER L/S SPINE. + FOR PAIN OVER L/S PARSPINAL ON RIGHT. TRIGGER POINTS:, . ROJM TESTING WITH NO INCREASE IN PAIN. NORMAL STEADY GAIT. . ASSESSMENTS BILATERAL LOW BACK PAIN WITH RIGHT-SIDED SCIATICA - M54.41 (PRIMARY) TREATMENT BILATERAL LOW BACK PAIN WITH RIGHT-SIDED SCIATICA REFILL SOMA TABLET, 350 MG, 1 TABLET NEEDED, ORALLY, Q8H TID MDD3 FOR 30 DAYS, 30 DAY(S), 45, REFILLS 2 REFILL PERCOCET TABLET, 10-325 MG, 1 CAP(S), ORALLY, Q6H PRN MDD4, 30 DAY(S), 120, REFILLS 0 REFILL BACLOFEN TABLET, 10 MG, 1 TABLET WITH FOOD OR MILK, ORALLY, THREE TIMES A DAY, 30 DAY(S), 90 TABLET, REFILLS 2 NOTES: ISTOP REGISTRY REVIEWED AND DEMONSTRATES COMPLLIANCE. (REF # [id number] ) BRINGS IN MEDICATIONS WHICH IS APPROPRIATE FOR WHAT WAS DISPENSED. RECENT URINE TOXICOLOGY REVIEWED. NO UNAUTHORIZED MEDICATIONS. NO ILLICIT SUBSTANCES AND PRESCRIBED MEDICATIONS WERE PRESENT. URINE TOX TODAY, RISKS AND BENEFITS OF NARCOTIC/OPIOD MEDICATIONS WERE REVIEWED WITH PATIENT - THIS INCLUDES BUT IS NOT LIMITED TO RISK OF DEPENDANCE/DEVELOPMENT OF ADDICTION, MOOD DISTURBANCE AND DEPRESSION, OSTEOPOROSIS, HORMONAL AND LABIDAL CHANGES, RESPIRATORY DEPRESSION AND . PATIENT IS ADVISED NOT TO DRIVE OR DRINK ALCOHOL WHILE ON THESE [facility]ICATION[facility] NARCOTIC AGREEMENT WAS UPDATEDREVIEWED AND SIGNED TODAY BY THE PATIENT. SEE ATTACHED DOCUMENT FOR FULL DETAILS; SPECIFIC ISSUES WERE REVIEWED: 1) KEEP PAIN MEDS IN THEIR ORIGINAL BOTTLES AND ANY WEEKLY PLANNERS ARE TO BE BROUGHT TO THE PAIN CENTER AT EVERY VISIT. 2) THE PATIENT IS NOT TO INCREASE DOSING OR TIMING OF THEIR PAIN MEDICATION WITHOUT SPECIFIC DIRECTION OF THEIR PAIN CENTERPROVIDER (NOT ER OR OTHER PROVIDERS). 3) ALL PAIN MEDS ARE TO BE KEPT SECURED, IN A LOCKED BOX. 4) NO PAIN MEDS ARE TO BE SHARED WITH ANY OTHER PERSON FOR ANY REASON. 5) NO PAIN MEDS MAY BE TAKEN FROM ANY FRIENDS OR RELATIVES FOR ANY REASON 6) NO MEDS OR SUBSTANCES WHICH ARE NOT LEGAL ARE TO BE USED- NO MARIJUANA, NO COCAINE, AMPHETAMINES, HEROIN, OR OTHERS ARE EVER TO BE USED. 7)URINE TESTING IS DONE TO ACCOUNT FOR MEDS AND SUBSTANCES BEING TAKEN AND WILL BE DONE RANDOMLY.,. PROCEDURE CODES FA211 ESTABILISHED PATIENT [facility] CHARGE DISPOSITION & COMMUNICATION FOLLOW UP 3 MONTHS ELECTRONICALLY SIGNED BY BERT YUEN ON 12/10/2018 AT 01:13 PM EST DISCLAIMER : THIS IS A VISIT SUMMARY EXTRACTED FROM THE [employer] CHART. IT IS NOT A COPY OF THE [employer] PROGRESS NOTE. MARY
== END ==
LOC: M PAIN 09:15
PROVIDERS: ATTEND Nurse Practitioner Family
DX: M54.41 Lumbago with sciatica, right side (principal); G89.29 Other chronic pain; E11.9 Type 2 diabetes mellitus without complications; F32.9 Major depressive disorder, single episode, unspecified; F41.9 Anxiety disorder, unspecified; I10 Essential (primary) hypertension; E78.5 Hyperlipidemia, unspecified; M19.90 Unspecified osteoarthritis, unspecified site; M85.80 Other specified disorders of bone density and structure, unspecified site; Z79.82 Long term (current) use of aspirin; Z79.891 Long term (current) use of opiate analgesic; Z79.899 Other long term (current) drug therapy; Z87.891 Personal history of nicotine dependence; Z86.73 Personal history of transient ischemic attack (TIA), and cerebral infarction without residual deficits; Z96.651 Presence of right artificial knee joint

== ENCOUNTER → 2019-02-04 | Outpatient (CLI) | payer BC ==
[~2019-02-04] MED LIST changes: -ASPI1TAB PO; +ASPI81TA26 PO; -CYCL5TA PO; +CYCL5TAB5 PO; -NAPR-50 PO; +NAPR-837 PO
--- NOTE | 2019-03-02 02:00 | ECWPNPC ---
PATIENT NAME: ANNITA CANNON : 1940 GENDER: FEMALE VISIT DATE: 02/04/2019 DISCHARGE DATE: 02/04/1945 VISIT LOCKED DATE TIME: PHYSICIAN: ZABRINA LINK RESOURCE: ZABRINA LINK REASON FOR APPOINTMENT 1. BACK HISTORY OF PRESENT ILLNESS HISTORY OF PRESENT ILLNESS: HERE FOR F/U OF CHRONIC NECK PAIN.RATING PAIN VAS 10/10.PAIN IS LOCATED LOW BACK WITH RADIATION INTO RIGHT LEG.PAIN IS WORSE AT NIGHT.FINDS OXYCODONE 10/325 AND SOMA 350MG Q8H PRN EFFECTIVE.REPORTS IMPROVED ABILITY TO TOLERATE ADL'S WITH CURRENT PAIN MEDICATION.DENIES SIDE EFFECTS.DISCUSSED TREATMENT OPTIONS AND PATIENT DOES NOT WISH TO DO INJECTION THERAPY. PAIN THE PATIENT DESCRIBES THE PAIN... THE PATIENT DESCRIBES THE PAIN... THE PATIENT DESCRIBES THE PAIN... THE PATIENT DESCRIBES THE PAIN... THE PATIENT DESCRIBES THE PAIN... THE PATIENT DESCRIBES THE PAIN... THE PATIENT DESCRIBES THE PAIN... FALL RISK SCREENING: SCREENING :NO FALLS REPORTED IN THE LAST YEAR CURRENT MEDICATIONS TAKING OCCUVITE TABLET 1 TAB(S) ORAL TWICE DAILY TAKING BLOOD GLUCOSE TEST STRIP - - DX: 250 - DAILY TAKING BLOOD GLUCOSE TEST DX: 250.00 STRIP DIRECTED IN VITRO DAILY TAKING SPACER/AERO CHAMBER MOUTHPIECE 0 MISCELLANEOUS DIRECTED - - TAKING ASPIR-81 81 MG TABLET DELAYED RELEASE 1 TABLET ORALLY ONCE A DAY TAKING MAGNESIUM OXIDE 500 MG TABLET 1 TAB WITH MEAL ORALLY DAILY TAKING VITAMIN D 2000 UNIT TABLET 1 TABLET ORALLY DAILY WITH MEAL TAKING FLONASE 50 MCG/ACT SUSPENSION 1 SPRAY IN EACH NOSTRIL NASALLY ONCE A DAY TAKING ALBUTEROL SULFATE HFA 108 (90 BASE) MCG/ACT AEROSOL SOLUTION 2 PUFFS INHALATION FOUR TIMES A DAY IF NEEDED TAKING NEEDLE (DISP) BD NEEDLES FOR VICTOZA 1 SUBCUTANEOUSLY DAILY DX:E11.9 TAKING FERROUS SULFATE 325 (65 FE) MG TABLET 1 TABLET ORALLY TID TAKING BLOOD GLUCOSE TEST - STRIP DIRECTED IN VITRO DAILY DX E11.9 TAKING CALCIUM + D 600-200 MG-UNIT TABLET 1 TABLET WITH FOOD ORALLY ONCE A DAY TAKING ESOMEPRAZOLE MAGNESIUM 40 MG CAPSULE DELAYED RELEASE 1 CAPSULE ORALLY DAILY TAKING ATORVASTATIN CALCIUM 40 MG TABLET 1 TABLET ORALLY ONCE A DAY TAKING RANITIDINE HCL 150 MG CAPSULE 1 CAPSULE AT BEDTIME ORALLY ONCE A DAY NEEDED TAKING GLIPIZIDE XL 2.5 MG TABLET EXTENDED RELEASE 24 HOUR 1 TABLET ORALLY ONCE A DAY WITH MEAL TAKING METFORMIN HCL 1000 MG TABLET 1 TABLET WITH MEALS ORALLY TWICE A DAY TAKING VICTOZA 1.8 MG SOLN 1.8 MG INJECTION SUBCUTANEOUSLY DAILY TAKING CYMBALTA 60 MG CAPSULE DELAYED RELEASE PARTICLES 1 CAPSULE ORALLY ONCE A DAY TAKING ATENOLOL 50 MG TABLET 1 TABLET ORALLY ONCE A DAY TAKING MICONAZOLE NITRATE 2 % CREAM 1 APPLICATION TO AFFECTED SKIN FOLDS IN GROIN EXTERNALLY TWICE A DAY NEEDED TAKING LUTEIN VISION BLEND - CAPSULE ORALLY TAKING LISINOPRIL-HYDROCHLOROTHIAZIDE 10-12.5 MG TABLET 1 TABLET ORALLY ONCE A DAY TAKING BACLOFEN 10 MG TABLET 1 TABLET WITH FOOD OR MILK ORALLY THREE TIMES A DAY TAKING SOMA 350 MG TABLET 1 TABLET NEEDED ORALLY Q8H TID MDD3 FOR 30 DAYS TAKING PERCOCET 10-325 MG TABLET 1 CAP(S) ORALLY Q6H PRN MDD4 NOT-TAKING ACETAMINOPHEN 500 MG CAPSULE 1 CAPSULE NEEDED ORALLY EVERY 6 HRS NOT-TAKING NAPROXEN 500 MG TABLET 1 TABLET NEEDED ORALLY EVERY 12 HRS NOT-TAKING VOLTAREN 1 % GEL EXTERNALLY DIRECTED, NOTES: PAIN CLINIC NOT-TAKING PREDNISONE 20 MG TABLET 2 TABS WITH FOOD ORALLY ONCE A DAY NOT-TAKING AMOXICILLIN 875 MG TABLET 1 TABLET ORALLY TWICE DAILY NOT-TAKING GUAIFENESIN-CODEINE 100-10 MG/5ML SOLUTION 5 ML ORALLY EVERY 4 HRS NEEDED FOR COUGH NOT-TAKING FLUOCINONIDE 0.05 % OINTMENT 1 APPLICATION TO AFFECTED AREA ON ELBOWS EXTERNALLY TWICE A DAY TO ELBOWS NEEDED FOR TWO WEEKS NOT-TAKING DERM OTIC 0.01% OIL 5 GTTS TO RIGHT EAR OTIC TWICE DAILY NOT-TAKING ESTRING 2 MG RING 1 RING WTW VAGINAL 90 DAYS NOT-TAKING OXYBUTYNIN CHLORIDE ER 5 MG TABLET EXTENDED RELEASE 24 HOUR 1 TABLET ORALLY ONCE A DAY NOT-TAKING TRIAMCINOLONE ACETONIDE 0.5 % OINTMENT 1 APPLICATION TO AFFECTED AREA EXTERNALLY TO VULVA TWICE A DAY NOT-TAKING ZESTORETIC 10-12.5 MG TABLET 1 TABLET ORALLY ONCE A DAY NOT-TAKING ESCITALOPRAM OXALATE 20 MG TABLET 0.5 TABLET ORALLY ONCE A DAY NOT-TAKING OXYBUTYNIN CHLORIDE 5 MG TABLET EXTENDED RELEASE ORALLY NOT-TAKING MUCINEX 600 MG TABLET EXTENDED RELEASE 12 HOUR 1 TABLET NEEDED ORALLY EVERY 12 HRS MEDICATION LIST REVIEWED AND RECONCILED WITH THE PATIENT PAST MEDICAL HISTORY OSTEOPENIA DEXA NL 10/28/2012 TYPE II DIABETES HEMATURIA DEPRESSION ANXIETY HYPERTENSION, ESSENTIAL ALLERGIC RHINITIS DIVERTICULOSIS HYPERLIPIDEMIA, MIXED ARTHRITIS ESOPHAGEAL REFLUX DEGENERATIVE DISC DISEASE ALLERGIES N.K.D.A. SURGICAL HISTORY [facility] & [facility] CHOLECYSTECTOMY BACK SURGERY KNEE SURGERY R 03 APPENDECTOMY KNEE REPLACEMENT R 05 TRANSVAGINAL TAPING/CYSTOSCOPY DR. LEDEZMA 04/12 EGD: HH, GASTRITIS, POLYP - SUSU 11/17 COLONOSCOPY: HEMORRHOIDS, DIVERTICULOSIS - SUSU (F/UP 5YRS) 11/17 FAMILY HISTORY FATHER: 75 YRS, BONE CANCER, DIAGNOSED WITH HEART DISEASE, CANCER MOTHER: 75 YRS, BOWEL OBSTRUCTION, DIABETES SIBLINGS: , BROTHER 79 UNKNOWN CAUSE, HAD DIABETES, SISTER DIABETES SOCIAL HISTORY GENERAL: TOBACCO USE ARE YOU A:FORMER SMOKER HIV / HEP-C SCREENING HIV TEST OFFERED TO PATIENT: N/A HEP-C TEST OFFERED TO PATIENT: N/A OTHERS AT HOME: DAUGHTER, MARTHA AND SON-MAXIMINO. DIET: CARBOHYDRATE CONTROLLED. LANGUAGE LANGUAGES SPOKEN:MAURITANIAN NO DOMESTIC VIOLENCE DO YOU FEEL SAFE IN YOUR ENVIRONMENT?YES BMI CARE GOAL FOLLOW-UP ABOVE NORMAL BMI FOLLOW-UPDIETARY MANAGEMENT EDUCATION, GUIDANCE, AND COUNSELING, GIVING ENCOURAGEMENT TO EXERCISE EXERCISE: NO REGULAR EXERCISE - LIMITED BY BACK PAIN. LEARNING BARRIERS / SPECIAL NEEDS ABILITY TO UNDERSTAND VERBAL INSTRUCTIONS GOOD , ABILITY TO UNDERSTAND WRITTEN INSTRUCTIONS GOOD , KNOWLEDGE OF EDUCATIONAL NEEDS/TREATMENT PLAN GOOD , NONDENOMINATIONAL? NO , LEARNING PREFERENCE NO PREFERENCE , ORIENTED TO PLAN OF CARE: PATIENT , PAIN MANAGEMENT PATIENT. PAIN CLINIC PFS, CLERGY, PUBLIC HEALTH REFERRALS PFS REFERRAL NEEDED?NO CLERGY REFERRAL NEEDED?NO PUBLIC HEALTH REFERRAL NEEDED?NO WAS THE PROVIDER NOTIFIED OF ANY PERTINENT INFO?YES HAS THE PATIENT BEEN EDUCATED REGARDING HIS/HER PLAN OF CARE?YES HAS THE PATIENT BEEN EDUCATED REGARDING PAIN, THE RISK FOR PAIN, THE IMPORTANCE OF EFFECTIVE PAIN MANAGEMENT, AND THE PAIN ASSESSMENT PROCESS?YES LATEX QUESTIONNAIRE LATEX ALLERGY : HAVE YOU EVER DEVELOPED ANY TYPE OF REACTION AFTER HANDLING LATEX PRODUCTS SUCH RUBBER GLOVES, CONDOMS, DIAPHRAGMS, BALLOONS, SOCKS, OR UNDERWEAR?NO LATEX ALLERGY : HAVE YOU EVER DEVELOPED ANY TYPE OF REACTION DURING OR AFTER DENTAL APPOINTMENT, VAGINAL/RECTAL EXAMINATION, SURGICAL PROCEDURE, OR ANY OTHER EXPOSURE?NO LATEX RISK : HAVE YOU EVER HAD ANY DIFFICULTY BREATHING OR HIVES AFTER EATING OR HANDLING ANY FRUITS, OR VEGETABLES; SUCH KIWI, BANANAS, STONE FRUITS, OR CHESTNUTSNO LATEX RISK : DO YOU HAVE A PREVIOUS PERSONAL HISTORY OF MORE THAN NINE SURGERIES, SPINA BIFIDA, OR REPEATED CATHERTIZATIONS? NO LATEX RISK : ARE YOU FREQUENTLY EXPOSED TO LATEX PRODUCTS IN YOUR OCCUPATION?NO DATE ASKED : 02/04/2019 CAFFEINE CAFFEINE USE?YES 1/DAY COFFEE ADVANCE DIRECTIVE ADVANCE DIRECTIVE DISCUSSED WITH PATIENT:YES PT STATES SHE DOES NOT HAVE HCP AND DECLINES INFORMATION AT THIS TIME. MORMONISM [id number] AMISH ALCOHOL SCREENING POINTS: 1, INTERPRETATION: NEGATIVE. 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 HOSPITALIZATION/MAJOR DIAGNOSTIC PROCEDURE SURGERY RELATED REVIEW OF SYSTEMS REVIEWED BY: PROVIDER: ZABRINA NOEL . CONSTITUTIONAL: ANY CHANGE IN YOUR MEDICAL CONDITION? YES, PT BEING EVALUATED BY NEURO SURGEON FOR MINI SEIZURES . CHILLS NO . FEVER NO . INFECTION: DO YOU HAVE NEW INFECTIONS? NO . DO YOU HAVE HISTORY OF MRSA? YES, OLD DIAGNOSIS, IN URINE, NO ACTIVE ISSUES . MUSCULOSKELETAL: ANY NEW PATTERNS OF PAIN OR NUMBNESS? NO . GASTROENTEROLOGY: ANY NEW CHANGE IN BOWEL CONTROL? NO . GENITOURINARY: ANY NEW CHANGE IN BLADDER CONTROL? NO . IS THERE A CHANCE YOU COULD BE ? NO . HEMATOLOGY/LYMPH: DO YOU TAKE ANY BLOOD THINNERS? (FOR EXAMPLE- COUMADIN, PLAVIX, AGGRENOX, PLATEL, PRADAXA, OR XARELTO) YES . WHEN WAS YOUR LAST DOSE? DATE: TIME: . NEUROLOGY: HAVE YOU FALLEN IN THE PAST 12 MONTHS? NO . ANY NEW EXTREMITY NUMBNESS OR WEAKNESS? NO . CARDIOLOGY: DO YOU HAVE A PACEMAKER OR DEFIBRILLATOR? NO . RESPIRATORY: HAVE YOU BEEN SICK IN THE PAST WEEK? NO . FEVER NO . FLU LIKE SYMPTOMS? NO . COUGH NO . INTEGUMENTARY: DO YOU HAVE ANY RASHES OR OPEN SORES? NO . ALLERGIC/IMMUNO: ARE YOU ALLERGIC TO IV DYE? NO . ANY NEW ALLERGIES? NO . PSYCHIATRIC: DO YOU HAVE THOUGHTS OF HURTING YOURSELF OR SOMEONE ELSE? NO . ARE YOU ABUSED, NEGLECTED, OR IN AN UNSAFE ENVIRONMENT? NO . ENDOCRINOLOGY: ARE YOU DIABETIC? YES . OTHER: DO YOU NEED ANY PRESCRIPTIONS? NO . IF YES, PLEASE LIST: ____ . ANY NEW PROBLEMS WITH YOUR MEDICATIONS? NO . WHEN DID YOU LAST EAT? ____ . WHEN DID YOU LAST DRINK? ____ . WHAT DID YOU LAST DRINK? ____ . NAME OF PERSON DRIVING YOU HOME? ____ . DO YOU HAVE ANY OTHER QUESTIONS OR CONCERNS NO . VITAL SIGNS WT 179.0 LBS, HT 62 IN, BMI 32.74 INDEX, BP 147/86 MM HG, HR 83 /MIN, RR 18 /MIN, TEMP 97.3 F, OXYGEN SAT % 90%, SAFE IN ENV? (Y/N) Y, REVIEWED BY: ERWIN. EXAMINATION GENERAL EXAMINATION: LUNGS:LUNG SOUNDS ARE CLEAR . HEART:HEART RATE REGULAR . MUSCULOSKELETAL:* . LUMBAR SACRAL SPINEMUSCLE STRENGTH TESTING 5/5 BILATERAL. PALPATION: POSITIVE FOR PAIN OVER L/S SPINE. + FOR PAIN OVER L/S PARSPINAL ON RIGHT. TRIGGER POINTS:, . ROJM TESTING WITH NO INCREASE IN PAIN. NORMAL STEADY GAIT. . ASSESSMENTS BILATERAL LOW BACK PAIN WITH RIGHT-SIDED SCIATICA - M54.41 (PRIMARY) TREATMENT BILATERAL LOW BACK PAIN WITH RIGHT-SIDED SCIATICA REFILL BACLOFEN TABLET, 10 MG, 1 TABLET WITH FOOD OR MILK, ORALLY, THREE TIMES A DAY, 30 DAYS, 90 TABLET, REFILLS 2 CONTINUE SOMA TABLET, 350 MG, 1 TABLET NEEDED, ORALLY, Q8H TID MDD3 FOR 30 DAYS REFILL PERCOCET TABLET, 10-325 MG, 1 CAP(S), ORALLY, Q6H PRN MDD4, 30 DAY(S), 120, REFILLS 0 NOTES: ISTOP REGISTRY REVIEWED AND DEMONSTRATES COMPLLIANCE. (REF # ) BRINGS IN MEDICATIONS WHICH IS APPROPRIATE FOR WHAT WAS DISPENSED. RECENT URINE TOXICOLOGY REVIEWED. NO UNAUTHORIZED MEDICATIONS. NO ILLICIT SUBSTANCES AND PRESCRIBED MEDICATIONS WERE PRESENT. , RISKS AND BENEFITS OF NARCOTIC/OPIOD MEDICATIONS WERE REVIEWED WITH PATIENT - THIS INCLUDES BUT IS NOT LIMITED TO RISK OF DEPENDANCE/DEVELOPMENT OF ADDICTION, MOOD DISTURBANCE AND DEPRESSION, OSTEOPOROSIS, HORMONAL AND LABIDAL CHANGES, RESPIRATORY DEPRESSION AND . PATIENT IS ADVISED NOT TO DRIVE OR DRINK ALCOHOL WHILE ON THESE MEDICATIONS. PROCEDURE CODES FA211 ESTABILISHED PATIENT [facility] FACILITY CHARGE DISPOSITION & COMMUNICATION FOLLOW UP 3 MONTHS ELECTRONICALLY SIGNED BY BERT YUEN ON 03/01/2019 AT 08:05 AM EDT DISCLAIMER : THIS IS A VISIT SUMMARY EXTRACTED FROM THE [employer] CHART. IT IS NOT A COPY OF THE [employer] PROGRESS NOTE. JESSICAD
== END ==
LOC: M PAIN 09:00
PROVIDERS: ATTEND Nurse Practitioner Family
DX: M54.41 Lumbago with sciatica, right side (principal); G89.29 Other chronic pain; E11.9 Type 2 diabetes mellitus without complications; Z86.59 Personal history of other mental and behavioral disorders; I10 Essential (primary) hypertension; E78.5 Hyperlipidemia, unspecified; M19.90 Unspecified osteoarthritis, unspecified site; K21.9 Gastro-esophageal reflux disease without esophagitis; Z96.651 Presence of right artificial knee joint; Z87.891 Personal history of nicotine dependence; Z79.82 Long term (current) use of aspirin; Z79.84 Long term (current) use of oral hypoglycemic drugs; Z79.891 Long term (current) use of opiate analgesic; Z79.899 Other long term (current) drug therapy

== ENCOUNTER → 2019-06-16 | Outpatient (CLI) | payer BC ==
[~2019-06-16] MED LIST changes: -DULO1CAP3; +DULO1CAP6; +LISI10TA15 PO; -LISI10TA2 PO
--- NOTE | 2019-06-17 01:18 | ECWPNPC ---
PATIENT NAME: ANNITA CANNON : 1940 GENDER: FEMALE VISIT DATE: 06/16/2019 DISCHARGE DATE: 06/16/19 1126 VISIT LOCKED DATE TIME: PHYSICIAN: ZABRINA LINK RESOURCE: ZABRINA LINK REASON FOR APPOINTMENT 1. BACK CHECKING IN HISTORY OF PRESENT ILLNESS HISTORY OF PRESENT ILLNESS: HERE FOR F/U OF CHRONIC NECK PAIN.RATING PAIN VAS 7/10.PAIN IS LOCATED LOW BACK WITH RADIATION INTO RIGHT LEG.PAIN IS WORSE AT NIGHT.FINDS OXYCODONE 10/325 AND SOMA 350MG Q8H PRN EFFECTIVE.REPORTS IMPROVED ABILITY TO TOLERATE ADL'S WITH CURRENT PAIN MEDICATION.DENIES SIDE EFFECTS.DISCUSSED TREATMENT OPTIONS AND PATIENT DOES NOT WISH TO DO INJECTION THERAPY. PAIN THE PATIENT DESCRIBES THE PAIN... THE PATIENT DESCRIBES THE PAIN... THE PATIENT DESCRIBES THE PAIN... THE PATIENT DESCRIBES THE PAIN... THE PATIENT DESCRIBES THE PAIN... THE PATIENT DESCRIBES THE PAIN... THE PATIENT DESCRIBES THE PAIN... THE PATIENT DESCRIBES THE PAIN... FALL RISK SCREENING: SCREENING :NO FALLS REPORTED IN THE LAST YEAR CURRENT MEDICATIONS TAKING OCCUVITE TABLET 1 TAB(S) ORAL TWICE DAILY TAKING BLOOD GLUCOSE TEST STRIP - - DX: 250 - DAILY TAKING BLOOD GLUCOSE TEST DX: 250.00 STRIP DIRECTED IN VITRO DAILY TAKING SPACER/AERO CHAMBER MOUTHPIECE 0 MISCELLANEOUS DIRECTED - - TAKING ASPIR-81 81 MG TABLET DELAYED RELEASE 1 TABLET ORALLY ONCE A DAY TAKING MAGNESIUM OXIDE 500 MG TABLET 1 TAB WITH MEAL ORALLY DAILY TAKING VITAMIN D 2000 UNIT TABLET 1 TABLET ORALLY DAILY WITH MEAL TAKING FLONASE 50 MCG/ACT SUSPENSION 1 SPRAY IN EACH NOSTRIL NASALLY ONCE A DAY TAKING ALBUTEROL SULFATE HFA 108 (90 BASE) MCG/ACT AEROSOL SOLUTION 2 PUFFS INHALATION FOUR TIMES A DAY IF NEEDED TAKING NEEDLE (DISP) BD NEEDLES FOR VICTOZA 1 SUBCUTANEOUSLY DAILY DX:E11.9 TAKING FERROUS SULFATE 325 (65 FE) MG TABLET 1 TABLET ORALLY TID TAKING BLOOD GLUCOSE TEST - STRIP DIRECTED IN VITRO DAILY DX E11.9 TAKING CALCIUM + D 600-200 MG-UNIT TABLET 1 TABLET WITH FOOD ORALLY ONCE A DAY TAKING ESOMEPRAZOLE MAGNESIUM 40 MG CAPSULE DELAYED RELEASE 1 CAPSULE ORALLY DAILY TAKING ATORVASTATIN CALCIUM 40 MG TABLET 1 TABLET ORALLY ONCE A DAY TAKING RANITIDINE HCL 150 MG CAPSULE 1 CAPSULE AT BEDTIME ORALLY ONCE A DAY NEEDED TAKING GLIPIZIDE XL 2.5 MG TABLET EXTENDED RELEASE 24 HOUR 1 TABLET ORALLY ONCE A DAY WITH MEAL TAKING METFORMIN HCL 1000 MG TABLET 1 TABLET WITH MEALS ORALLY TWICE A DAY TAKING VICTOZA 1.8 MG SOLN 1.8 MG INJECTION SUBCUTANEOUSLY DAILY TAKING CYMBALTA 60 MG CAPSULE DELAYED RELEASE PARTICLES 1 CAPSULE ORALLY ONCE A DAY TAKING ATENOLOL 50 MG TABLET 1 TABLET ORALLY ONCE A DAY TAKING MICONAZOLE NITRATE 2 % CREAM 1 APPLICATION TO AFFECTED SKIN FOLDS IN GROIN EXTERNALLY TWICE A DAY NEEDED TAKING LUTEIN VISION BLEND - CAPSULE ORALLY TAKING LISINOPRIL-HYDROCHLOROTHIAZIDE 10-12.5 MG TABLET 1 TABLET ORALLY ONCE A DAY TAKING BACLOFEN 10 MG TABLET 1 TABLET WITH FOOD OR MILK ORALLY THREE TIMES A DAY TAKING SOMA 350 MG TABLET 1 TABLET NEEDED ORALLY Q8H TID MDD3 FOR 30 DAYS TAKING PERCOCET 10-325 MG TABLET 1 CAP(S) ORALLY Q6H PRN MDD4 NOT-TAKING ACETAMINOPHEN 500 MG CAPSULE 1 CAPSULE NEEDED ORALLY EVERY 6 HRS NOT-TAKING NAPROXEN 500 MG TABLET 1 TABLET NEEDED ORALLY EVERY 12 HRS NOT-TAKING VOLTAREN 1 % GEL EXTERNALLY DIRECTED, NOTES: PAIN CLINIC NOT-TAKING PREDNISONE 20 MG TABLET 2 TABS WITH FOOD ORALLY ONCE A DAY NOT-TAKING AMOXICILLIN 875 MG TABLET 1 TABLET ORALLY TWICE DAILY NOT-TAKING GUAIFENESIN-CODEINE 100-10 MG/5ML SOLUTION 5 ML ORALLY EVERY 4 HRS NEEDED FOR COUGH NOT-TAKING FLUOCINONIDE 0.05 % OINTMENT 1 APPLICATION TO AFFECTED AREA ON ELBOWS EXTERNALLY TWICE A DAY TO ELBOWS NEEDED FOR TWO WEEKS NOT-TAKING DERM OTIC 0.01% OIL 5 GTTS TO RIGHT EAR OTIC TWICE DAILY NOT-TAKING ESTRING 2 MG RING 1 RING WTW VAGINAL 90 DAYS NOT-TAKING OXYBUTYNIN CHLORIDE ER 5 MG TABLET EXTENDED RELEASE 24 HOUR 1 TABLET ORALLY ONCE A DAY NOT-TAKING TRIAMCINOLONE ACETONIDE 0.5 % OINTMENT 1 APPLICATION TO AFFECTED AREA EXTERNALLY TO VULVA TWICE A DAY NOT-TAKING ZESTORETIC 10-12.5 MG TABLET 1 TABLET ORALLY ONCE A DAY NOT-TAKING ESCITALOPRAM OXALATE 20 MG TABLET 0.5 TABLET ORALLY ONCE A DAY NOT-TAKING OXYBUTYNIN CHLORIDE 5 MG TABLET EXTENDED RELEASE ORALLY NOT-TAKING MUCINEX 600 MG TABLET EXTENDED RELEASE 12 HOUR 1 TABLET NEEDED ORALLY EVERY 12 HRS MEDICATION LIST REVIEWED AND RECONCILED WITH THE PATIENT PAST MEDICAL HISTORY OSTEOPENIA DEXA NL 10/28/2012 TYPE II DIABETES HEMATURIA DEPRESSION ANXIETY HYPERTENSION, ESSENTIAL ALLERGIC RHINITIS DIVERTICULOSIS HYPERLIPIDEMIA, MIXED ARTHRITIS ESOPHAGEAL REFLUX DEGENERATIVE DISC DISEASE ALLERGIES N.K.D.A. SURGICAL HISTORY [facility] CHOLECYSTECTOMY BACK SURGERY KNEE SURGERY R 03 APPENDECTOMY KNEE REPLACEMENT R 05 TRANSVAGINAL TAPING/CYSTOSCOPY DR. LEDEZMA 04/12 EGD: HH, GASTRITIS, POLYP - SUSU 11/17 COLONOSCOPY: HEMORRHOIDS, DIVERTICULOSIS - SUSU (F/UP 5YRS) 11/17 FAMILY HISTORY FATHER: 75 YRS, BONE CANCER, DIAGNOSED WITH UNSPECIFIED HEART DISEASE, OTHER MALIGNANT NEOPLASM OF UNSPECIFIED SITE MOTHER: 75 YRS, BOWEL OBSTRUCTION, DIABETES SIBLINGS: , BROTHER 79 UNKNOWN CAUSE, HAD DIABETES, SISTER DIABETES SOCIAL HISTORY GENERAL: TOBACCO USE ARE YOU A:FORMER SMOKER HIV / HEP-C SCREENING HIV TEST OFFERED TO PATIENT: N/A HEP-C TEST OFFERED TO PATIENT: N/A OTHERS AT HOME: DAUGHTER, MARTHA AND SON-MAXIMINO. DIET: CARBOHYDRATE CONTROLLED. LANGUAGE LANGUAGES SPOKEN:PALESTINIAN NO DOMESTIC VIOLENCE DO YOU FEEL SAFE IN YOUR ENVIRONMENT?YES BMI CARE GOAL FOLLOW-UP ABOVE NORMAL BMI FOLLOW-UPDIETARY MANAGEMENT EDUCATION, GUIDANCE, AND COUNSELING, GIVING ENCOURAGEMENT TO EXERCISE EXERCISE: NO REGULAR EXERCISE - LIMITED BY BACK PAIN. LEARNING BARRIERS / SPECIAL NEEDS ABILITY TO UNDERSTAND VERBAL INSTRUCTIONS GOOD , ABILITY TO UNDERSTAND WRITTEN INSTRUCTIONS GOOD , KNOWLEDGE OF EDUCATIONAL NEEDS/TREATMENT PLAN GOOD , MANDAEN? NO , LEARNING PREFERENCE NO PREFERENCE , ORIENTED TO PLAN OF CARE: PATIENT , PAIN MANAGEMENT PATIENT. PAIN CLINIC PFS, CLERGY, PUBLIC HEALTH REFERRALS PFS REFERRAL NEEDED?NO CLERGY REFERRAL NEEDED?NO PUBLIC HEALTH REFERRAL NEEDED?NO WAS THE PROVIDER NOTIFIED OF ANY PERTINENT INFO?YES HAS THE PATIENT BEEN EDUCATED REGARDING HIS/HER PLAN OF CARE?YES HAS THE PATIENT BEEN EDUCATED REGARDING PAIN, THE RISK FOR PAIN, THE IMPORTANCE OF EFFECTIVE PAIN MANAGEMENT, AND THE PAIN ASSESSMENT PROCESS?YES LATEX QUESTIONNAIRE LATEX ALLERGY : HAVE YOU EVER DEVELOPED ANY TYPE OF REACTION AFTER HANDLING LATEX PRODUCTS SUCH RUBBER GLOVES, CONDOMS, DIAPHRAGMS, BALLOONS, SOCKS, OR UNDERWEAR?NO LATEX ALLERGY : HAVE YOU EVER DEVELOPED ANY TYPE OF REACTION DURING OR AFTER DENTAL APPOINTMENT, VAGINAL/RECTAL EXAMINATION, SURGICAL PROCEDURE, OR ANY OTHER EXPOSURE?NO DATE ASKED : 02/04/2019 LATEX RISK : HAVE YOU EVER HAD ANY DIFFICULTY BREATHING OR HIVES AFTER EATING OR HANDLING ANY FRUITS, OR VEGETABLES; SUCH KIWI, BANANAS, STONE FRUITS, OR CHESTNUTSNO LATEX RISK : DO YOU HAVE A PREVIOUS PERSONAL HISTORY OF MORE THAN NINE SURGERIES, SPINA BIFIDA, OR REPEATED CATHERIZATIONS? NO LATEX RISK : ARE YOU FREQUENTLY EXPOSED TO LATEX PRODUCTS IN YOUR OCCUPATION?NO CAFFEINE CAFFEINE USE?YES 1/DAY COFFEE ADVANCE DIRECTIVE ADVANCE DIRECTIVE DISCUSSED WITH PATIENT:YES PT STATES SHE DOES NOT HAVE HCP AND DECLINES INFORMATION AT THIS TIME. LATTER-DAY [id number] ANGLICAN ALCOHOL SCREENING POINTS: 1, INTERPRETATION: NEGATIVE. 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 REVIEWED WITH PATIENT 06/16/19 1100 NLJ. HOSPITALIZATION/MAJOR DIAGNOSTIC PROCEDURE SURGERY RELATED REVIEW OF SYSTEMS REVIEWED BY: PROVIDER: ZABRINA NOEL . CONSTITUTIONAL: ANY CHANGE IN YOUR MEDICAL CONDITION? NO . CHILLS NO . FEVER NO . INFECTION: DO YOU HAVE NEW INFECTIONS? NO . DO YOU HAVE HISTORY OF MRSA? NO . MUSCULOSKELETAL: ANY NEW PATTERNS OF PAIN OR NUMBNESS? NO- STATES PAIN IS NOT ANY WORSE AND MEDS CONTROLL PAIN TO A TOLERABLE LEVEL . GASTROENTEROLOGY: ANY NEW CHANGE IN BOWEL CONTROL? NO . GENITOURINARY: ANY NEW CHANGE IN BLADDER CONTROL? NO . IS THERE A CHANCE YOU COULD BE ? NO . HEMATOLOGY/LYMPH: DO YOU TAKE ANY BLOOD THINNERS? (FOR EXAMPLE- COUMADIN, PLAVIX, AGGRENOX, PLATEL, PRADAXA, OR XARELTO) YES- 81 MG ASA . WHEN WAS YOUR LAST DOSE? DATE:06/16/19 TIME: 0900 . NEUROLOGY: HAVE YOU FALLEN IN THE PAST 12 MONTHS? NO . ANY NEW EXTREMITY NUMBNESS OR WEAKNESS? NO . CARDIOLOGY: DO YOU HAVE A PACEMAKER OR DEFIBRILLATOR? NO . RESPIRATORY: HAVE YOU BEEN SICK IN THE PAST WEEK? NO . FEVER NO . FLU LIKE SYMPTOMS? NO . COUGH NO . INTEGUMENTARY: DO YOU HAVE ANY RASHES OR OPEN SORES? NO . ALLERGIC/IMMUNO: ARE YOU ALLERGIC TO IV DYE? NO . ANY NEW ALLERGIES? NO . PSYCHIATRIC: DO YOU HAVE THOUGHTS OF HURTING YOURSELF OR SOMEONE ELSE? NO . ARE YOU ABUSED, NEGLECTED, OR IN AN UNSAFE ENVIRONMENT? NO . ENDOCRINOLOGY: ARE YOU DIABETIC? YES . OTHER: DO YOU NEED ANY PRESCRIPTIONS? YES . IF YES, PLEASE LIST: ____HYDROCODONE . ANY NEW PROBLEMS WITH YOUR MEDICATIONS? NO . WHEN DID YOU LAST EAT? ____ . WHEN DID YOU LAST DRINK? ____ . WHAT DID YOU LAST DRINK? ____ . NAME OF PERSON DRIVING YOU HOME? ____ . DO YOU HAVE ANY OTHER QUESTIONS OR CONCERNS NO . VITAL SIGNS WT 184.6 LBS, HT 62 IN, BMI 33.76 INDEX, BP 150/70 MM HG, HR 67 /MIN, RR 18 /MIN, TEMP 95.6 F, OXYGEN SAT % 95%, NA INITIALS AW 1105. EXAMINATION GENERAL EXAMINATION: LUNGS:LUNG SOUNDS ARE CLEAR . HEART:HEART RATE REGULAR . MUSCULOSKELETAL:* . LUMBAR SACRAL SPINEMUSCLE STRENGTH TESTING 5/5 BILATERAL. PALPATION: POSITIVE FOR PAIN OVER L/S SPINE. + FOR PAIN OVER L/S PARSPINAL ON RIGHT. TRIGGER POINTS:, . ROJM TESTING WITH NO INCREASE IN PAIN. NORMAL STEADY GAIT. . ASSESSMENTS BILATERAL LOW BACK PAIN WITH RIGHT-SIDED SCIATICA - M54.41 (PRIMARY) TREATMENT BILATERAL LOW BACK PAIN WITH RIGHT-SIDED SCIATICA REFILL PERCOCET TABLET, 10-325 MG, 1 CAP(S), ORALLY, Q6H PRN MDD4, 30 DAY(S), 120, REFILLS 0 NOTES: ISTOP REGISTRY REVIEWED AND DEMONSTRATES COMPLLIANCE. (REF # ) BRINGS IN MEDICATIONS WHICH IS APPROPRIATE FOR WHAT WAS DISPENSED. RECENT URINE TOXICOLOGY REVIEWED. NO UNAUTHORIZED MEDICATIONS. NO ILLICIT SUBSTANCES AND PRESCRIBED MEDICATIONS WERE PRESENT. URINE TOX TODAY, RISKS AND BENEFITS OF NARCOTIC/OPIOD MEDICATIONS WERE REVIEWED WITH PATIENT - THIS INCLUDES BUT IS NOT LIMITED TO RISK OF DEPENDANCE/DEVELOPMENT OF ADDICTION, MOOD DISTURBANCE AND DEPRESSION, OSTEOPOROSIS, HORMONAL AND LABIDAL CHANGES, RESPIRATORY DEPRESSION AND . PATIENT IS ADVISED NOT TO DRIVE OR DRINK ALCOHOL WHILE ON THESE MEDICATIONS. PROCEDURE CODES FA211 ESTABILISHED PATIENT [facility] CHARGE DISPOSITION & COMMUNICATION FOLLOW UP 3 MONTHS ELECTRONICALLY SIGNED BY BERT YUEN ON 06/16/2019 AT 02:33 PM EDT DISCLAIMER : THIS IS A VISIT SUMMARY EXTRACTED FROM THE [employer] CHART. IT IS NOT A COPY OF THE [employer] PROGRESS NOTE. MAYR
== END ==
LOC: M PAIN 10:15
PROVIDERS: ATTEND Nurse Practitioner Family
DX: M54.41 Lumbago with sciatica, right side (principal); G89.29 Other chronic pain; E11.9 Type 2 diabetes mellitus without complications; Z86.59 Personal history of other mental and behavioral disorders; I10 Essential (primary) hypertension; E78.5 Hyperlipidemia, unspecified; K21.9 Gastro-esophageal reflux disease without esophagitis; Z96.651 Presence of right artificial knee joint; Z87.891 Personal history of nicotine dependence; Z79.82 Long term (current) use of aspirin; Z79.84 Long term (current) use of oral hypoglycemic drugs; Z79.891 Long term (current) use of opiate analgesic; Z79.899 Other long term (current) drug therapy

== ENCOUNTER → 2019-11-30 | Outpatient (CLI) | payer MEDICARE ==
[~2019-11-30] MED LIST changes: -OMEP40CA2 PO; +OMEP40CA97 PO
--- NOTE | 2019-12-01 00:30 | ECWPNPC ---
PATIENT NAME: ANNITA CANNON : 1940 GENDER: FEMALE VISIT DATE: 11/30/2019 DISCHARGE DATE: 11/30/19 1124 VISIT LOCKED DATE TIME: PHYSICIAN: ZABRINA LINK RESOURCE: ZABRINA LINK REASON FOR APPOINTMENT 1. FOLLOW UP HISTORY OF PRESENT ILLNESS HISTORY OF PRESENT ILLNESS: ANNITA IS BEING SEEN FOR A ROUTINE FOLLOW-UP AND MEDICINE MANAGEMENT OF PERSISTENT LOW BACK PAIN. SHE HAS PRESCRIBED OXYCODONE 10/325 MAX DAILY DOSE OF 4 AND RECEIVES 120 TABLETS PER MONTH. URINE TOXICOLOGY DONE AT LAST VISIT IS SHOWING NEGATIVE FOR OXYCODONE. WHEN QUESTIONED REGARDING THIS PATIENT STATES SHE ONLY TAKES IT WHEN SHE NEEDS TO AND THIS MAY BE AT THE MOST 2-3 TIMES PER WEEK. INFORMED HER TODAY THAT WE WOULD NEED TO SEE HER IN 3 WEEKS TO REPEAT URINE. FORGOT TO BRING IN MEDICATIONS. THIS HAPPENS FREQUENTLY. SHE IS INFORMED TODAY THAT WE WOULD NEED TO SEE HER BACK IN 3 WEEKS WITH HER MEDICATION WELL. TODAY, I'M CHANGING THE AMOUNT THAT SHE RECEIVES EVERY MONTH TO MAXIMUM DAILY DOSE OF 3 DISPENSED 90 FOR A ONE-MONTH SUPPLY. PAIN THE PATIENT DESCRIBES THE PAIN... FALL RISK SCREENING: SCREENING :NO FALLS REPORTED IN THE LAST YEAR CURRENT MEDICATIONS TAKING OCCUVITE TABLET 1 TAB(S) ORAL TWICE DAILY TAKING BLOOD GLUCOSE TEST STRIP - - DX: 250 - DAILY TAKING BLOOD GLUCOSE TEST DX: 250.00 STRIP DIRECTED IN VITRO DAILY TAKING SPACER/AERO CHAMBER MOUTHPIECE 0 MISCELLANEOUS DIRECTED - - TAKING ASPIR-81 81 MG TABLET DELAYED RELEASE 1 TABLET ORALLY ONCE A DAY TAKING MAGNESIUM OXIDE 500 MG TABLET 1 TAB WITH MEAL ORALLY DAILY TAKING VITAMIN D 2000 UNIT TABLET 1 TABLET ORALLY DAILY WITH MEAL TAKING FLONASE 50 MCG/ACT SUSPENSION 1 SPRAY IN EACH NOSTRIL NASALLY ONCE A DAY TAKING ALBUTEROL SULFATE HFA 108 (90 BASE) MCG/ACT AEROSOL SOLUTION 2 PUFFS INHALATION FOUR TIMES A DAY IF NEEDED TAKING NEEDLE (DISP) BD NEEDLES FOR VICTOZA 1 SUBCUTANEOUSLY DAILY DX:E11.9 TAKING FERROUS SULFATE 325 (65 FE) MG TABLET 1 TABLET ORALLY TID TAKING BLOOD GLUCOSE TEST - STRIP DIRECTED IN VITRO DAILY DX E11.9 TAKING CALCIUM + D 600-200 MG-UNIT TABLET 1 TABLET WITH FOOD ORALLY ONCE A DAY TAKING ESOMEPRAZOLE MAGNESIUM 40 MG CAPSULE DELAYED RELEASE 1 CAPSULE ORALLY DAILY TAKING ATORVASTATIN CALCIUM 40 MG TABLET 1 TABLET ORALLY ONCE A DAY TAKING RANITIDINE HCL 150 MG CAPSULE 1 CAPSULE AT BEDTIME ORALLY ONCE A DAY NEEDED TAKING GLIPIZIDE XL 2.5 MG TABLET EXTENDED RELEASE 24 HOUR 1 TABLET ORALLY ONCE A DAY WITH MEAL TAKING METFORMIN HCL 1000 MG TABLET 1 TABLET WITH MEALS ORALLY TWICE A DAY TAKING VICTOZA 1.8 MG SOLN 1.8 MG INJECTION SUBCUTANEOUSLY DAILY TAKING CYMBALTA 60 MG CAPSULE DELAYED RELEASE PARTICLES 1 CAPSULE ORALLY ONCE A DAY TAKING ATENOLOL 50 MG TABLET 1 TABLET ORALLY ONCE A DAY TAKING MICONAZOLE NITRATE 2 % CREAM 1 APPLICATION TO AFFECTED SKIN FOLDS IN GROIN EXTERNALLY TWICE A DAY NEEDED TAKING LUTEIN VISION BLEND - CAPSULE ORALLY TAKING LISINOPRIL-HYDROCHLOROTHIAZIDE 10-12.5 MG TABLET 1 TABLET ORALLY ONCE A DAY TAKING SOMA 350 MG TABLET 1 TABLET NEEDED ORALLY Q8H TID MDD3 FOR 30 DAYS TAKING BACLOFEN 10 MG TABLET 1 TABLET WITH FOOD OR MILK ORALLY THREE TIMES A DAY TAKING PERCOCET 10-325 MG TABLET 1 CAP(S) ORALLY Q6H PRN MDD4 NOT-TAKING ACETAMINOPHEN 500 MG CAPSULE 1 CAPSULE NEEDED ORALLY EVERY 6 HRS NOT-TAKING NAPROXEN 500 MG TABLET 1 TABLET NEEDED ORALLY EVERY 12 HRS NOT-TAKING VOLTAREN 1 % GEL EXTERNALLY DIRECTED, NOTES: PAIN CLINIC NOT-TAKING PREDNISONE 20 MG TABLET 2 TABS WITH FOOD ORALLY ONCE A DAY NOT-TAKING AMOXICILLIN 875 MG TABLET 1 TABLET ORALLY TWICE DAILY NOT-TAKING GUAIFENESIN-CODEINE 100-10 MG/5ML SOLUTION 5 ML ORALLY EVERY 4 HRS NEEDED FOR COUGH NOT-TAKING FLUOCINONIDE 0.05 % OINTMENT 1 APPLICATION TO AFFECTED AREA ON ELBOWS EXTERNALLY TWICE A DAY TO ELBOWS NEEDED FOR TWO WEEKS NOT-TAKING DERM OTIC 0.01% OIL 5 GTTS TO RIGHT EAR OTIC TWICE DAILY NOT-TAKING ESTRING 2 MG RING 1 RING WTW VAGINAL 90 DAYS NOT-TAKING OXYBUTYNIN CHLORIDE ER 5 MG TABLET EXTENDED RELEASE 24 HOUR 1 TABLET ORALLY ONCE A DAY NOT-TAKING TRIAMCINOLONE ACETONIDE 0.5 % OINTMENT 1 APPLICATION TO AFFECTED AREA EXTERNALLY TO VULVA TWICE A DAY NOT-TAKING ZESTORETIC 10-12.5 MG TABLET 1 TABLET ORALLY ONCE A DAY NOT-TAKING ESCITALOPRAM OXALATE 20 MG TABLET 0.5 TABLET ORALLY ONCE A DAY NOT-TAKING OXYBUTYNIN CHLORIDE 5 MG TABLET EXTENDED RELEASE ORALLY NOT-TAKING MUCINEX 600 MG TABLET EXTENDED RELEASE 12 HOUR 1 TABLET NEEDED ORALLY EVERY 12 HRS MEDICATION LIST REVIEWED AND RECONCILED WITH THE PATIENT PAST MEDICAL HISTORY OSTEOPENIA DEXA NL 10/28/2012 TYPE II DIABETES HEMATURIA DEPRESSION ANXIETY HYPERTENSION, ESSENTIAL ALLERGIC RHINITIS DIVERTICULOSIS HYPERLIPIDEMIA, MIXED ARTHRITIS ESOPHAGEAL REFLUX DEGENERATIVE DISC DISEASE ALLERGIES N.K.D.A. SURGICAL HISTORY [facility] B[facility] CHOLECYSTECTOMY BACK SURGERY KNEE SURGERY R 03 APPENDECTOMY KNEE REPLACEMENT R 05 TRANSVAGINAL TAPING/CYSTOSCOPY DR. LEDEZMA 04/12 EGD: HH, GASTRITIS, POLYP - SUSU 11/17 COLONOSCOPY: HEMORRHOIDS, DIVERTICULOSIS - SUSU (F/UP 5YRS) 11/17 FAMILY HISTORY FATHER: 75 YRS, BONE CANCER, DIAGNOSED WITH UNSPECIFIED HEART DISEASE, OTHER MALIGNANT NEOPLASM OF UNSPECIFIED SITE MOTHER: 75 YRS, BOWEL OBSTRUCTION, DIABETES SIBLINGS: , BROTHER 79 UNKNOWN CAUSE, HAD DIABETES, SISTER DIABETES SOCIAL HISTORY GENERAL: TOBACCO USE ARE YOU A:FORMER SMOKER HIV / HEP-C SCREENING HIV TEST OFFERED TO PATIENT: N/A HEP-C TEST OFFERED TO PATIENT: N/A OTHERS AT HOME: DAUGHTER, MARTHA AND SON-MAXIMINO. DIET: CARBOHYDRATE CONTROLLED. LANGUAGE LANGUAGES SPOKEN:BANGLADESHI NO DOMESTIC VIOLENCE DO YOU FEEL SAFE IN YOUR ENVIRONMENT?YES BMI CARE GOAL FOLLOW-UP ABOVE NORMAL BMI FOLLOW-UPDIETARY MANAGEMENT EDUCATION, GUIDANCE, AND COUNSELING, GIVING ENCOURAGEMENT TO EXERCISE EXERCISE: NO REGULAR EXERCISE - LIMITED BY BACK PAIN. LEARNING BARRIERS / SPECIAL NEEDS ABILITY TO UNDERSTAND VERBAL INSTRUCTIONS GOOD , ABILITY TO UNDERSTAND WRITTEN INSTRUCTIONS GOOD , KNOWLEDGE OF EDUCATIONAL NEEDS/TREATMENT PLAN GOOD , SAMARITAN? NO , LEARNING PREFERENCE NO PREFERENCE , ORIENTED TO PLAN OF CARE: PATIENT , PAIN MANAGEMENT PATIENT. PAIN CLINIC PFS, CLERGY, PUBLIC HEALTH REFERRALS PFS REFERRAL NEEDED?NO CLERGY REFERRAL NEEDED?NO PUBLIC HEALTH REFERRAL NEEDED?NO WAS THE PROVIDER NOTIFIED OF ANY PERTINENT INFO?YES HAS THE PATIENT BEEN EDUCATED REGARDING HIS/HER PLAN OF CARE?YES HAS THE PATIENT BEEN EDUCATED REGARDING PAIN, THE RISK FOR PAIN, THE IMPORTANCE OF EFFECTIVE PAIN MANAGEMENT, AND THE PAIN ASSESSMENT PROCESS?YES LATEX QUESTIONNAIRE LATEX ALLERGY : HAVE YOU EVER DEVELOPED ANY TYPE OF REACTION AFTER HANDLING LATEX PRODUCTS SUCH RUBBER GLOVES, CONDOMS, DIAPHRAGMS, BALLOONS, SOCKS, OR UNDERWEAR?NO LATEX ALLERGY : HAVE YOU EVER DEVELOPED ANY TYPE OF REACTION DURING OR AFTER DENTAL APPOINTMENT, VAGINAL/RECTAL EXAMINATION, SURGICAL PROCEDURE, OR ANY OTHER EXPOSURE?NO LATEX RISK : HAVE YOU EVER HAD ANY DIFFICULTY BREATHING OR HIVES AFTER EATING OR HANDLING ANY FRUITS, OR VEGETABLES; SUCH KIWI, BANANAS, STONE FRUITS, OR CHESTNUTSNO LATEX RISK : DO YOU HAVE A PREVIOUS PERSONAL HISTORY OF MORE THAN NINE SURGERIES, SPINA BIFIDA, OR REPEATED CATHERIZATIONS? NO LATEX RISK : ARE YOU FREQUENTLY EXPOSED TO LATEX PRODUCTS IN YOUR OCCUPATION?NO DATE ASKED : 02/04/2019 CAFFEINE CAFFEINE USE?YES 1/DAY COFFEE ADVANCE DIRECTIVE ADVANCE DIRECTIVE DISCUSSED WITH PATIENT:YES 11/30/2019 PT STATES SHE DOES NOT HAVE HCP AND DECLINES INFORMATION AT THIS TIME. JS EPISCOPAL [id number] LATTER-DAY ALCOHOL SCREENING POINTS: 1, INTERPRETATION: NEGATIVE. 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 REVIEWED WITH PATIENT 06/16/19 1100 NLJREVIEWED WITH PATIENT 11/30/2019 1040 JS. HOSPITALIZATION/MAJOR DIAGNOSTIC PROCEDURE SURGERY RELATED REVIEW OF SYSTEMS REVIEWED BY: PROVIDER: ZABRINA NOEL . CONSTITUTIONAL: ANY CHANGE IN YOUR MEDICAL CONDITION? NO . CHILLS NO . FEVER NO . INFECTION: DO YOU HAVE NEW INFECTIONS? NO . DO YOU HAVE HISTORY OF MRSA? NO . MUSCULOSKELETAL: ANY NEW PATTERNS OF PAIN OR NUMBNESS? NO . GASTROENTEROLOGY: ANY NEW CHANGE IN BOWEL CONTROL? NO . GENITOURINARY: ANY NEW CHANGE IN BLADDER CONTROL? NO . IS THERE A CHANCE YOU COULD BE ? NO . HEMATOLOGY/LYMPH: DO YOU TAKE ANY BLOOD THINNERS? (FOR EXAMPLE- COUMADIN, PLAVIX, AGGRENOX, PLATEL, PRADAXA, OR XARELTO) NO . WHEN WAS YOUR LAST DOSE? DATE: TIME: . NEUROLOGY: HAVE YOU FALLEN IN THE PAST 12 MONTHS? NO . ANY NEW EXTREMITY NUMBNESS OR WEAKNESS? NO . CARDIOLOGY: DO YOU HAVE A PACEMAKER OR DEFIBRILLATOR? NO . RESPIRATORY: HAVE YOU BEEN SICK IN THE PAST WEEK? NO . FEVER NO . FLU LIKE SYMPTOMS? NO . COUGH NO . INTEGUMENTARY: DO YOU HAVE ANY RASHES OR OPEN SORES? NO . ALLERGIC/IMMUNO: ARE YOU ALLERGIC TO IV DYE? NO . ANY NEW ALLERGIES? NO . PSYCHIATRIC: DO YOU HAVE THOUGHTS OF HURTING YOURSELF OR SOMEONE ELSE? NO . ARE YOU ABUSED, NEGLECTED, OR IN AN UNSAFE ENVIRONMENT? NO . ENDOCRINOLOGY: ARE YOU DIABETIC? YES . OTHER: DO YOU NEED ANY PRESCRIPTIONS? YES . IF YES, PLEASE LIST: ____BACLOFEN, OXYCODONE . ANY NEW PROBLEMS WITH YOUR MEDICATIONS? NO . WHEN DID YOU LAST EAT? ____ . WHEN DID YOU LAST DRINK? ____ . WHAT DID YOU LAST DRINK? ____ . NAME OF PERSON DRIVING YOU HOME? ____ . DO YOU HAVE ANY OTHER QUESTIONS OR CONCERNS NO . VITAL SIGNS WT 182.4 LBS, HT 62 IN, BMI 33.36 INDEX, BP 186/70 MM HG, REPEAT BP 138/82 MANUAL, HR 101 /MIN, RR 18 /MIN, TEMP 96.5 F, OXYGEN SAT % 93%, SAFE IN ENV? (Y/N) YES, NA INITIALS AW 1037, REVIEWED BY: ABNER. EXAMINATION GENERAL EXAMINATION: GENERALAWAKE,ALERT ,PLEASANT . PSYCHAFFECT NORMAL . LUNGS:LUNG GONZALES ARE CLEAR TO AUSCULTATION BILATERALLY. GOOD MOVEMENT OF AIR . HEART:S1, S2 IN A REGULAR RATE AND RHYTHM. NO SIGNIFICANT MURMURS, RUBS OR GALLOPS NOTED . ASSESSMENTS BILATERAL LOW BACK PAIN WITH RIGHT-SIDED SCIATICA - M54.41 (PRIMARY) TREATMENT BILATERAL LOW BACK PAIN WITH RIGHT-SIDED SCIATICA REFILL BACLOFEN TABLET, 10 MG, 1 TABLET WITH FOOD OR MILK, ORALLY, THREE TIMES A DAY, 30 DAYS, 90 TABLET, REFILLS 2 DECREASE PERCOCET TABLET, 10-325 MG, 1 CAP(S), ORALLY, Q8H PRN MDD3 #90 TAB SHOULD LAST 30 DAYS, 30 DAY(S), 90, REFILLS 0 NOTES: DUE TO THE FACT THAT PATIENT USES OXYCODONE INFREQUENTLY FOR SEVERE PAIN EPISODES MAY BE 2-3 TIMES A WEEK. I WILL DECREASE THE MAXIMUM DAILY DOSE TO 3 TABLETS AND GIVE 90 TABLETS FOR A 30 DAY SUPPLY. WE'LL SEE HER BACK IN 3 WEEKS TO EVALUATE MEDICATIONS AND URINE TOXICOLOGY., ISTOP REGISTRY REVIEWED AND DEMONSTRATES COMPLLIANCE. (REF # ) BRINGS IN MEDICATIONS WHICH IS APPROPRIATE FOR WHAT WAS DISPENSED. RECENT URINE TOXICOLOGY REVIEWED. NO UNAUTHORIZED MEDICATIONS. NO ILLICIT SUBSTANCES AND PRESCRIBED MEDICATIONS WERE PRESENT. , RISKS OF NARCOTIC/OPIOD MEDICATIONS INCLUDES BUT IS NOT LIMITED TO RISK OF DEPENDANCE/DEVELOPMENT OF ADDICTION, MOOD DISTURBANCE AND DEPRESSION, OSTEOPOROSIS, HORMONAL AND LABIDAL CHANGES, RESPIRATORY DEPRESSION AND . PATIENT IS ADVISED NOT TO DRIVE OR DRINK ALCOHOL WHILE ON THESE MEDICATIONS, [facility] NARCOTIC AGREEMENTUPDATED WAS REVIEWED AND SIGNED TODAY BY THE PATIENT. SEE ATTACHED DOCUMENT FOR FULL DETAILS; SPECIFIC ISSUES WERE REVIEWED: 1) KEEP PAIN MEDS IN THEIR ORIGINAL BOTTLES AND ANY WEEKLY PLANNERS ARE TO BE BROUGHT TO THE PAIN CENTER AT EVERY VISIT. 2) THE PATIENT IS NOT TO INCREASE DOSING OR TIMING OF THEIR PAIN MEDICATION WITHOUT SPECIFIC DIRECTION OF THEIR PAIN CENTERPROVIDER (NOT ER OR OTHER PROVIDERS). 3) ALL PAIN MEDS ARE TO BE KEPT SECURED, IN A LOCKED BOX. 4) NO PAIN MEDS ARE TO BE SHARED WITH ANY OTHER PERSON FOR ANY REASON. 5) NO PAIN MEDS MAY BE TAKEN FROM ANY FRIENDS OR RELATIVES FOR ANY REASON 6) NO MEDS OR SUBSTANCES WHICH ARE NOT LEGAL ARE TO BE USED- NO MARIJUANA, NO COCAINE, AMPHETAMINES, HEROIN, OR OTHERS ARE EVER TO BE USED. 7)URINE TESTING IS DONE TO ACCOUNT FOR MEDS AND SUBSTANCES BEING TAKEN AND WILL BE DONE RANDOMLY. PROCEDURE CODES FA211 ESTABILISHED PATIENT [facility] CHARGE DISPOSITION & COMMUNICATION FOLLOW UP 3 WEEKS (REASON: MED MGMNT) ELECTRONICALLY SIGNED BY BERT YUEN ON 11/30/2019 AT 01:14 PM EST DISCLAIMER : THIS IS A VISIT SUMMARY EXTRACTED FROM THE [employer] CHART. IT IS NOT A COPY OF THE [employer] PROGRESS NOTE. MARY
== END ==
LOC: M PAIN 10:15
PROVIDERS: ATTEND Nurse Practitioner Family
DX: M54.41 Lumbago with sciatica, right side (principal)

== ENCOUNTER 2020-06-21 10:44 | Inpatient (IN) | payer MEDICARE ==
[~2020-06-21 10:44] MED LIST changes: -BACL10TA2; +BACL10TA2 PO
[2020-06-21] MEDS ORDERED: NS 1,000 ML IV ONE (11:30)
[2020-06-21 11:39] LABS: VENOUS BASE EXCESS -8.6 (-2.0-2.0); VENOUS HCO3 17.5 MEQ/L (23.0-27.0); VENOUS PARTIAL PRESSURE CO2 38.6 mmHg (38.0-50.0); VENOUS PH 7.275 UNITS (7.330-7.430); VENOUS STANDARD HCO3 17.5 MEQ/L; VENOUS TOTAL CO2 18.7 MEQ/L (24.0-28.0)
[2020-06-21 11:42] LABS: BASO # 0.2 10^3/uL (0.0-0.2); BASO % 1.5 % (0.0-1.0); EOS # 0.2 10^3/uL (0.0-0.5); EOS % 1.2 % (0.0-3.0); LYMPH # 5.2 10^3/uL (1.5-5.0); LYMPH % 34.1 % (24.0-44.0); MEAN CORPUSCULAR VOLUME 94.3 fl (80.0-96.0); MONO # 1.1 10^3/uL (0.0-0.8); MONO % 7.6 % (0.0-5.0); NEUTROPHILS # 7.8 10^3/uL (1.5-8.5); NEUTROPHILS % 51.6 % (36.0-66.0); PLATELET COUNT, AUTOMATED 268 10^3/uL (150-450); RED BLOOD COUNT 4.24 10^6/uL (4.00-5.40)
--- NOTE | 2020-06-21 11:56 | REPVR ---
PROCEDURE INFORMATION: Exam: CT Head Without Contrast Exam date and time: 06/21/2020 11:02 AM Age: 79 years old Clinical indication: Syncope and collapse TECHNIQUE: Imaging protocol: Computed tomography of the head without contrast. Radiation optimization: All CT scans at this facility use at least one of these dose optimization techniques: automated exposure control; mA and/or kV adjustment per patient size (includes targeted exams where dose is matched to clinical indication); or iterative reconstruction. COMPARISON: MRI-Brain without Contrast 11/09/2018 11:42 AM FINDINGS: Brain: There is no acute intracranial hemorrhage or mass effect. Mild diffuse volume loss is within the range of normal for patient age. There are small vessel ischemic changes within the periventricular and subcortical white matter, but the normal purvis/white matter delineation is maintained. Ventricles: No ventriculomegaly. Bones/joints: Unremarkable. No acute fracture. Paranasal sinuses: Visualized sinuses are unremarkable. No fluid levels. Mastoid air cells: Visualized mastoid air cells are well aerated. Soft tissues: Unremarkable. IMPRESSION: No acute intracranial hemorrhage or edema. Electronically signed by: Apolonia Oliveros On 06/21/2020 11:56:55 AM
[2020-06-21 11:57] LABS: WHITE BLOOD COUNT 15.1 10^3/uL (4.0-10.0)
--- NOTE | 2020-06-21 12:00 | REPVR ---
PROCEDURE INFORMATION: Exam: CT Cervical Spine Without Contrast Exam date and time: 06/21/2020 11:02 AM Age: 79 years old Clinical indication: Other: Syncope TECHNIQUE: Imaging protocol: Computed tomography images of the cervical spine without contrast. Radiation optimization: All CT scans at this facility use at least one of these dose optimization techniques: automated exposure control; mA and/or kV adjustment per patient size (includes targeted exams where dose is matched to clinical indication); or iterative reconstruction. COMPARISON: MRI-Spine,Cervical without con 01/02/2018 10:11 AM FINDINGS: Vertebrae: There is 3 mm of grade 1 retrolisthesis of C5 with respect to C6. Normal vertebral body alignment is otherwise preserved. Vertebral body heights are within normal limits. Discs/Spinal canal/Neural foramina: There is severe intervertebral disc space loss at C5/6 and C6/7. There is multilevel facet hypertrophy. Changes contribute to multilevel moderate to severe neural foraminal narrowing. Soft tissues: Unremarkable. Lungs: Lung apices are normal. IMPRESSION: No acute findings. Electronically signed by: Apolonia Oliveros On 06/21/2020 11:59:51 AM
--- NOTE | 2020-06-21 12:10 | REPVR ---
PROCEDURE INFORMATION: Exam: CT Chest Without Contrast Exam date and time: 06/21/2020 11:25 AM Age: 79 years old Clinical indication: Injury or trauma; Injury history: Possible trauma; Initial encounter; Blunt trauma (contusions or hematomas) TECHNIQUE: Imaging protocol: Computed tomography of the chest without contrast. Radiation optimization: All CT scans at this facility use at least one of these dose optimization techniques: automated exposure control; mA and/or kV adjustment per patient size (includes targeted exams where dose is matched to clinical indication); or iterative reconstruction. COMPARISON: CR Chest, 2 view PA, Lat 10/26/2018 11:50 AM FINDINGS: Lungs: There are bibasilar dependent atelectatic changes. Pleural space: Unremarkable. No pneumothorax. No pleural effusion. Heart: Unremarkable. No cardiomegaly. No pericardial effusion. Mediastinal space: There is a small hiatal hernia. Aorta: Unremarkable. No aortic aneurysm. Lymph nodes: Unremarkable. No enlarged lymph nodes. Gallbladder and bile ducts: The gallbladder is surgically absent. Bones/joints: Unremarkable. No acute fracture. Soft tissues: Unremarkable. IMPRESSION: No evidence of acute traumatic injury. Electronically signed by: Apolonia Oliveros On 06/21/2020 12:10:01 PM
--- NOTE | 2020-06-21 12:12 | REPVR ---
PROCEDURE INFORMATION: Exam: CT Abdomen And Pelvis Without Contrast Exam date and time: 06/21/2020 11:25 AM Age: 79 years old Clinical indication: Injury or trauma; Injury history: Possible trauma; Initial encounter; Blunt; Generalized TECHNIQUE: Imaging protocol: Computed tomography of the abdomen and pelvis without contrast. Radiation optimization: All CT scans at this facility use at least one of these dose optimization techniques: automated exposure control; mA and/or kV adjustment per patient size (includes targeted exams where dose is matched to clinical indication); or iterative reconstruction. COMPARISON: CR Pelvis, complete 10/11/2015 1:05 PM FINDINGS: Lungs: Patchy density mosaic lung pattern suggests small airways disease. Liver: There are no focal liver lesions present. Gallbladder and bile ducts: There has been a cholecystectomy. Pancreas: The pancreas is normal. Spleen: The spleen is normal. Adrenals: The adrenal glands are normal. Kidneys and ureters: The kidneys are normal. There is no evidence of hydronephrosis. No calculi are identified. Stomach and bowel: Moderate diverticulosis is present in the sigmoid and descending colon. Appendix: No appendix is specifically identified. There is no evidence of fluid collections or inflammatory stranding in the right lower quadrant. Intraperitoneal space: Unremarkable. No free air. No significant fluid collection. Vasculature: The vasculature demonstrates diffuse moderate atherosclerotic calcification. There is dense calcification at the origin of the superior mesenteric artery and moderate ostial calcification of the bilateral renal arteries. Lymph nodes: Unremarkable. No enlarged lymph nodes. Bladder: Unremarkable as visualized. Reproductive: There has been a hysterectomy. No adnexal cysts or masses are identified. Bones/joints: The spine demonstrates moderate degenerative changes at multiple levels. There are marked degenerative changes in the right hip joint.There is pincer-type femoral acetabular impingement. There is no evidence of fracture. Soft tissues: There is mild subcutaneous edema across the abdomen the umbilical level. IMPRESSION: 1. The vasculature demonstrates diffuse moderate atherosclerotic calcification. There is dense calcification at the origin of the superior mesenteric artery and moderate ostial calcification of the bilateral renal arteries. 2. There is mild subcutaneous edema across the abdomen the umbilical level. 3. There is no evidence of fracture. Electronically signed by: Royce Mccall On 06/21/2020 12:11:50 PM
[2020-06-21 12:13] LABS: INR 1.09; PROTHROMBIN TIME 14.3 SECONDS (11.8-14.0)
[2020-06-21 12:14] LABS: PARTIAL THROMBOPLASTIN TIME 33.2 SECONDS (25.0-38.4)
--- NOTE | 2020-06-21 12:14 | REPVR ---
PROCEDURE INFORMATION: Exam: XR Chest, 1 View Exam date and time: 06/21/2020 12:06 PM Age: 79 years old Clinical indication: Shortness of breath; Additional info: Syncope/near-syncope TECHNIQUE: Imaging protocol: XR of the chest Views: 1 view. COMPARISON: CT Chest without contrast 06/21/2020 11:28 AM FINDINGS: Lungs: There are low lung volumes. There are bibasilar medial opacities, potentially atelectasis. Pleural space: Unremarkable. No pleural effusion. No pneumothorax. Heart/Mediastinum: There is mild cardiomegaly. Bones/joints: Unremarkable. IMPRESSION: Low lung volumes and suspected bibasilar atelectasis. Electronically signed by: Apolonia Oliveros On 06/21/2020 12:14:02 PM
[2020-06-21 12:25] LABS: BLOOD UREA NITROGEN 50 MG/DL (7-18); CALCIUM LEVEL 9.1 MG/DL (8.8-10.2); CARBON DIOXIDE LEVEL 20 MEQ/L (21-32); CHLORIDE LEVEL 102 MEQ/L (98-107); CPK CREATINE PHOSPHOKINASE 89 U/L (26-192); CREATININE FOR GFR 2.36 MG/DL (0.55-1.30); ETHYL ALCOHOL (ETHANOL) < 0.003 % (0.000-0.010); FREE T4 1.16 NG/DL (0.76-1.46); GLOMERULAR FILTRATION RATE 21.1 (>32); GLUCOSE, FASTING 362 MG/DL (70-100); MAGNESIUM LEVEL 1.7 MG/DL (1.8-2.4); MB/CK RELATIVE INDEX 2.25 (< OR =4); POTASSIUM SERUM 5.2 MEQ/L (3.5-5.1); SODIUM LEVEL 132 MEQ/L (136-145); TROPONIN I < 0.02 NG/ML (< 0.10)
[2020-06-21] MEDS ORDERED: cefTRIAXone SOD 1 GM in D5W MINI-BAG PLUS 50 ML IV ONE (13:00)
[2020-06-21 13:09] LABS: HEMOGLOBIN A1c 12.6 %
[2020-06-21 13:16] LABS: AMPHETAMINES LEVEL URINE NEGATIVE (NEGATIVE); BARBITURATES URINE NEGATIVE (NEGATIVE); BENZODIAZEPINES URINE NEGATIVE (NEGATIVE); CANNABINOIDS URINE NEGATIVE (NEGATIVE); COCAINE METABOLITE URINE NEGATIVE (NEGATIVE); METHADONE URINE NEGATIVE (NEGATIVE); OPIATES URINE NEGATIVE (NEGATIVE); PHENCYCLIDINE URINE NEGATIVE (NEGATIVE)
[2020-06-21] MEDS ORDERED: CELE20TA PO (13:39)
[2020-06-21] MEDS ORDERED: ESOM40CA35 PO (13:39)
--- NOTE | 2020-06-21 14:55 | HPEPDOC ---
General Date of Admission 06/21/20 Date of Service: Jun 21, 2020 Chief Complaint The patient is a 79-year-old female admitted with a reason for visit of Neuro Symptoms. Source: EMS, EMS notes reviewed Exam Limitations: Clinical conditions Timing/Duration: 24 hours Severity: Moderate History of Present Illness Patient is 79 years old female with past medical history of diabetes mellitus, hypertension presented to the hospital with altered mental status. According to her daughter, pt developed hallucinations, lethargy, and left facial droop yesterday evening. Patient continues to be confused through the night and in the morning. In ER CT head negative, patient was found to have leukocytosis of 15.1, lactic acid 2.4, creatinine 2.4, magnesium 1.7. UA showed pyuria Home Medications Scheduled Atenolol (Atenolol) 50 Mg Tab, 50 MG PO DAILY, (Reported) Atorvastatin Calcium (Atorvastatin Calcium) 40 Mg Tab, 40 MG PO DAILY, (Reported) Baclofen (Baclofen) 10 Mg Tab, 10 MG PO TID, (Reported) Citalopram Hydrobromide (Celexa) 20 Mg Tablet, 20 MG PO DAILY, (Reported) Esomeprazole Magnesium (Esomeprazole Magnesium Dr) 40 Mg Capsule.dr, 40 MG PO DAILY, (Reported) Lisinopril/Hydrochlorothiazide (Lisinopril-Hctz 10-12.5 mg Tab) 1 Tab Tab, 1 TAB PO DAILY, (Reported) Metformin HCl (Metformin HCl) 1,000 Mg Tab, 1,000 MG PO BID, (Reported) Allergies Coded Allergies: propoxyphene (Verified Allergy, Unknown, 06/21/20) Past Medical History Medical History TYPE II DIABETES OSTEOPENIA DEXA NL 10/28/2012 HEMATURIA DEPRESSION ANXIETY HYPERTENSION, ESSENTIAL ALLERGIC RHINITIS DIVERTICULOSIS HYPERLIPIDEMIA, MIXED ARTHRITIS ESOPHAGEAL REFLUX DEGENERATIVE DISC DISEASE Surgical History [facility] & [facility]SO CHOLECYSTECTOMY BACK SURGERY KNEE SURGERY R 03 APPENDECTOMY KNEE REPLACEMENT R 05 TRANSVAGINAL TAPING/CYSTOSCOPY DR. LEDEZMA 04/12 EGD: HH, GASTRITIS, POLYP - SUSU 11/17 COLONOSCOPY: HEMORRHOIDS, DIVERTICULOSIS - SUSU (F/UP 5YRS) 11/17 Family History FATHER: 75 YRS, BONE CANCER, DIAGNOSED WITH HEART DISEASE, CANCER MOTHER: 75 YRS, BOWEL OBSTRUCTION, DIAGNOSED WITH DIABETES SIBLINGS: , BROTHER 79 UNKNOWN CAUSE, HAD DIABETES, SISTER DIABETES Social History * Smoker: former Smoker Alcohol: Denies Drugs: denies A-FIB/CHADSVASC A-FIB History Current/History of A-Fib/PAF?: No Current PO Anticoag Therapy: No Review of Systems Constitutional: Reports: Chills; Denies: Fever Eyes: Denies: Pain, Vision change ENT: Denies: Head Aches Skin: Denies: Rash, Lesions Pulmonary: Denies: Dyspnea, Cough Cardiovascular: Denies: Chest Pain, Palpitations Gastrointestinal: Denies: Nausea, Vomiting Genitourinary: Reports: Dysuria, Frequency Hematologic: Denies: Bruising, Bleeding Excessively Endocrine: Denies: Polydipsia, Polyphagia Musculoskeletal: Reports: Back Pain; Denies: Neck Pain Neurological: Reports: Weakness (left facial droop) Psych: Reports: Other Psych (confused) Physical Examination General Exam: Positive: Moderate Distress, Other Eye Exam: Positive: PERRLA, Conjunctiva & lids normal ENT Exam: Positive: Atraumatic Neck Exam: Positive: Supple; Negative: JVD Chest Exam: Positive: Clear to auscultation Heart Exam: Positive: Rate Normal Abdomen Exam: Positive: Normal bowel sounds Extremity Exam: Negative: Clubbing, Cyanosis Skin Exam: Positive: Nl turgor and temperature Neuro Exam: Positive: Reflexes 2+, Other (left facial droop) Psych Exam: Positive: Other (AO1) Vital Signs Vital Signs Date Time Temp Pulse Resp B/P (MAP) Pulse Ox O2 Delivery O2 Flow Rate FiO2 06/21/20 13:14 63 93 06/21/20 12:29 18 Room Air 06/21/20 11:31 147/69 (95) 06/21/20 10:58 97.6 Laboratory Data Labs 24H Laboratory Tests 2 06/21/20 11:14: Immature Granulocyte % (Auto) 4.0H, Neutrophils (%) (Auto) 51.6, Lymphocytes (%) (Auto) 34.1, Monocytes (%) (Auto) 7.6H, Eosinophils (%) (Auto) 1.2, Basophils (%) (Auto) 1.5H, Neutrophils # (Auto) 7.8, Lymphocytes # (Auto) 5.2H, Monocytes # (Auto) 1.1H, Eosinophils # (Auto) 0.2, Basophils # (Auto) 0.2, Nucleated Red Blood Cells % (auto) 0.1H, Prothrombin Time 14.3H, Prothromb Time International Ratio 1.09, Activated Partial Thromboplast Time 33.2, Blood Gas Bicarbonate Standard 17.5, Venous Blood pH 7.275L, Venous Blood Partial Pressure CO2 38.6, Venous Blood Partial Pressure O2 68.0H, Venous Blood Total Carbon Dioxide 18.7L, Venous Blood HCO3 17.5L, Venous Blood Oxygen Saturation 91.0H, Venous Blood Base Excess -8.6L, Anion Gap 10, Glomerular Filtration Rate 21.1L, Estimated Mean Plasma Glucose 315H, Hemoglobin A1c 12.6, Lactic Acid Level 2.4*H, Calcium Level 9.1, Magnesium Level 1.7L, Total Creatine Kinase 89, Creatine Kinase MB 2.0, Creatine Kinase MB Relative Index 2.25, Troponin I < 0.02, Thyroid Stimulating Hormone (TSH) 1.820, Free Thyroxine 1.16, Ethyl Alcohol Level < 0.003 06/21/20 11:16: POC Glucose (Misc Panel) 362H, POC Sodium (Misc Panel) 134L, POC Potassium (Misc Panel) 5.1, POC Chloride (Misc Panel) 102, POC Total CO2 (Misc Panel) 18.0L, POC Blood Urea Nitrogen (Misc Panel 44H, POC Ionized Calcium (Misc Panel) 4.9, POC Creatinine (Misc Panel) 2.2H, POC Hematocrit (Misc Panel) 43.0 06/21/20 12:27: Urine Color YELLOW, Urine Appearance CLOUDYH, Urine pH 5.0, Urine Specific [place] 1.018, Urine Protein NEGATIVE, Urine Glucose (UA) 1+H, Urine Ketones NEGATIVE, Urine Blood 1+H, Urine Nitrite NEGATIVE, Urine Bilirubin 1+H, Urine Urobilinogen 2.0H, Urine Leukocyte Esterase 3+H, Urine WBC (Auto) 61H, Urine RBC (Auto) 3, Urine Hyaline Casts (Auto) 23, Urine Bacteria (Auto) 3+H, Urine Squamous Epithelial Cells 2, Urine Amorphous Sediment SMALLH, Urine Mucus (Auto) SMALL, Urine Sperm (Auto) , Urine Opiates Screen NEGATIVE, Urine Methadone Screen NEGATIVE, Urine Barbiturates Screen NEGATIVE, Urine Phencyclidine Screen NEGATIVE, Urine Amphetamines Screen NEGATIVE, Urine Benzodiazepines Screen NEGATIVE, Urine Cocaine Metabolite Screen NEGATIVE, Urine Cannabinoids Screen NEGATIVE CBC/BMP Laboratory Tests 06/21/20 11:14 Microbiology Microbiology 06/21/20 Urine Culture, Received Pending Assessment/Plan Patient is 79 years old female with past medical history of diabetes mellitus, hypertension presented to the hospital with altered mental status. According to her daughter, pt developed hallucinations, lethargy, and left facial droop yesterday evening. Patient continues to be confused through the night and in the morning. In ER CT head negative, patient was found to have leukocytosis of 15.1, lactic acid 2.4, creatinine 2.4, magnesium 1.7. UA showed pyuria Problems (1) Sepsis Status: Acute Problem Text: Secondary to UTI Patient has leukocytosis, elevated lactic acid, altered mental status and kidney failure Await blood culture, urine culture IV fluid and ceftriaxone IV (2) CVA (cerebral vascular accident) Status: Acute Problem Text: Patient has left facial droop with altered mental status CT head was negative MRI, MRA, carotid ultrasound Statin, aspirin Neuro check (3) Metabolic encephalopathy Status: Acute Problem Text: Secondary to sepsis See above (4) UTI (urinary tract infection) Status: Acute Problem Text: Patient has a history of recurrent UTI Await urine culture (5) Degenerative arthritis Status: Acute Problem Text: Pain management (6) KINJAL (acute kidney injury) Status: Acute Problem Text: Secondary to sepsis Prerenal IV fluid Continue to monitor (7) Diabetes mellitus Status: Chronic Problem Text: Diabetes diet Insulin sliding scale Plan / VTE VTE Prophylaxis Ordered?: Yes WENDY RAZO DO Jun 21, 2020 14:55
[2020-06-21] MEDS ORDERED: GLUCAGON INJ 1MG VIAL SC PRN (15:00)
[2020-06-21] MEDS ORDERED: GLUCOSE 4GM CHEW TABLET PO PRN (15:00)
[2020-06-21] MEDS ORDERED: DEXTROSE 50% 50 ML SYRINGE IV PRN (15:00)
[2020-06-21] MEDS ORDERED: ASPIRIN 325 MG TAB PO ONE (15:00)
[2020-06-21] MEDS: NS 1,000 ML IV SCH (15:08)
[2020-06-21 16:16] VITALS: BP 143/66
[2020-06-21] MEDS ORDERED: SODIUM CHLORIDE 0.9% 1000ML IV ONE (17:00)
--- NOTE | 2020-06-21 17:36 | REPVR ---
PROCEDURE INFORMATION: Exam: US Duplex Bilateral Extracranial Arteries Exam date and time: 06/21/2020 5:16 PM Age: 79 years old Clinical indication: Screening exam; Additional info: Rule out stroke TECHNIQUE: Imaging protocol: Real-time Duplex ultrasound scan of the bilateral carotid and vertebral arteries combining purvis scale, color Doppler and spectral waveform analysis. Bilateral exam. COMPARISON: CT Head without contrast 06/21/2020 11:28 AM FINDINGS: Right carotid system not evaluated due lack of patient compliance. Left common carotid artery: Mild atherosclerotic changes. No occlusion or stenosis. Waveforms are normal. Left internal carotid artery: Mild to moderate atherosclerotic changes. No occlusion or stenosis. Waveforms are normal. Left ICA/CCA ratio: Within normal limits. 0.87. Left external carotid artery: No stenosis in the origin. Left vertebral artery: Unremarkable. Antegrade flow. IMPRESSION: Mild to moderate atherosclerotic changes in the right carotid artery with a less ricco 50 % or mild stenosis. Right carotid system not evaluated as described above. REFERENCES: SRU CRITERIA. The degree of internal carotid artery stenosis is based on criteria defined by the Society of Radiologists in Ultrasound (SRU). Normal is no stenosis. Mild is less than 50% stenosis. Moderate is 50-69% stenosis. Severe is greater than 69% stenosis to near occlusion. Near occlusion is a markedly narrowed lumen. Total occlusion is no detectable patent lumen. Electronically signed by: Luke Beck On 06/21/2020 17:36:20 PM
[2020-06-21 17:56] LABS: BASO # 0.2 10^3/uL (0.0-0.2); EOS % 0.2 % (0.0-3.0); HEMATOCRIT 36.6 % (36.0-47.0); HEMOGLOBIN 12.8 g/dl (12.0-15.5); LYMPH # 4.5 10^3/uL (1.5-5.0); LYMPH % 25.8 % (24.0-44.0); MEAN CORPUSCULAR VOLUME 94.3 fl (80.0-96.0); MONO # 1.5 10^3/uL (0.0-0.8); MONO % 8.4 % (0.0-5.0); NEUTROPHILS # 10.9 10^3/uL (1.5-8.5); NEUTROPHILS % 62.6 % (36.0-66.0); PLATELET COUNT, AUTOMATED 238 10^3/uL (150-450); RED BLOOD COUNT 3.88 10^6/uL (4.00-5.40); WHITE BLOOD COUNT 17.4 10^3/uL (4.0-10.0)
[2020-06-21] MEDS: HumaLOG INSULIN (NovoLOG) PER UNIT SC SCH ×2 (18:02→21:00)
[2020-06-21] MEDS: BACLOFEN 10 MG TAB PO SCH ×2 (18:02→21:55)
[2020-06-21 20:00] VITALS: BP 179/86
[2020-06-21] MEDS: HEPARIN SOD (PORCINE) 5000UNITS/ML 1ML VIAL/SYRINGE SC SCH (21:55)
[2020-06-22] VITALS (7 sets, daily range): BP systolic 122–170; BP diastolic 52–82
[2020-06-22] MEDS: NS 1,000 ML IV SCH ×3 (01:46→21:31)
[2020-06-22] MEDS: cefTRIAXone SOD 1 GM in D5W MINI-BAG PLUS 50 ML IV SCH ×3 (01:47→23:55)
[2020-06-22] MEDS: HumaLOG INSULIN (NovoLOG) PER UNIT SC SCH ×4 (07:30→21:00)
[2020-06-22 08:24] LABS: HEMATOCRIT 37.9 % (36.0-47.0); HEMOGLOBIN 13.2 g/dl (12.0-15.5); MEAN CORPUSCULAR HEMOGLOBIN 32.9 pg (27.0-33.0); MEAN CORPUSCULAR HGB CONC 34.8 g/dl (32.0-36.5); MEAN CORPUSCULAR VOLUME 94.5 fl (80.0-96.0); PLATELET COUNT, AUTOMATED 242 10^3/uL (150-450); RED BLOOD COUNT 4.01 10^6/uL (4.00-5.40); WHITE BLOOD COUNT 13.5 10^3/uL (4.0-10.0)
[2020-06-22] MEDS: lisinopriL 10 MG TAB PO SCH (09:00)
[2020-06-22] MEDS: ASPIRIN 81 MG CHEW TABLET PO SCH (09:00)
[2020-06-22] MEDS: BACLOFEN 10 MG TAB PO SCH (09:00)
[2020-06-22] MEDS: ATORVASTATIN 20 MG TAB PO SCH (09:00)
[2020-06-22] MEDS: atenoloL 50 MG TAB PO SCH (09:00)
[2020-06-22] MEDS: CitaloPRAM (CeleXA) 20 MG TAB PO SCH (09:00)
[2020-06-22] MEDS: OMEPRAZOLE 20 MG CAP PO SCH (09:00)
[2020-06-22] MEDS ORDERED: FLUBLOK(EGG FREE)(QUAD)INFLUENZA VACC 0.5ML SYRINGE 18YRS & OLDER IM ONE (09:00)
[2020-06-22 10:11] LABS: BILIRUBIN,TOTAL 0.7 MG/DL (0.2-1.0); CALCIUM LEVEL 8.2 MG/DL (8.8-10.2); CREATININE FOR GFR 1.28 MG/DL (0.55-1.30); GLOMERULAR FILTRATION RATE 42.7 (>32); MAGNESIUM LEVEL 1.6 MG/DL (1.8-2.4); POTASSIUM SERUM 4.6 MEQ/L (3.5-5.1); TOTAL PROTEIN 6.5 GM/DL (6.4-8.2)
[2020-06-22] MEDS: HEPARIN SOD (PORCINE) 5000UNITS/ML 1ML VIAL/SYRINGE SC SCH ×2 (10:44→21:31)
[2020-06-22] MEDS ORDERED: LORazepam 2 MG/ML VIAL IM STA (12:34)
[2020-06-22] MEDS ORDERED: hydrALAZINE 20MG/ML 1ML VIAL (J0360 PER 20MG) IV STA (13:39)
[2020-06-22] MEDS: MAGNESIUM CHLORIDE 64 MG TABCR (SLO MAG) PO SCH (14:42)
--- NOTE | 2020-06-22 14:43 | IPNPDOC ---
Text Note Date of Service The patient was seen on 06/22/20. NOTE Subjective: Patient continues to be confused, she is a restless, not oriented to place and time. Objective: GENERAL APPEARANCE: In moderate distress, restless HEENT: no scleral icterus, no JVD, EOMI CARDIOVASCULAR: S1S2 LUNGS: CTA ABDOMEN: soft & not tender w palpitation MUSCULOSKELETAL: no cyanosis, no swelling INTEGUMENT: no generalized palor NEUROLOGICAL: Left facial droop, unable to do full neurological exam, patient restless Assessment/Plan Patient is 79 years old female with past medical history of diabetes mellitus, hypertension presented to the hospital with altered mental status. According to her daughter, pt developed hallucinations, lethargy, and left facial droop yesterday evening. Patient continues to be confused through the night and in the morning. In ER CT head negative, patient was found to have leukocytosis of 15.1, lactic acid 2.4, creatinine 2.4, magnesium 1.7. UA showed pyuria Problems (1) Sepsis Secondary to UTI Patient had leukocytosis, elevated lactic acid, altered mental status and kidney failure Await blood culture, urine culture IV fluid and ceftriaxone IV (2) CVA (cerebral vascular accident) Patient has left facial droop with altered mental status CT head was negative Await MRI, MRA, we will repeat carotid ultrasound. Patient was a restless unable to visualize right carotid artery Statin, aspirin Neuro check Appreciate/agree with neurological consult Speech evaluation (3) Metabolic encephalopathy Multifactorial. Secondary to sepsis due to UTI and possible stroke See above (4) UTI (urinary tract infection) Patient has a history of recurrent UTI Await urine culture (5) Degenerative arthritis Pain management (6) KINJAL (acute kidney injury) Improved today Secondary to sepsis Prerenal IV fluid Continue to monitor (7) Diabetes mellitus Diabetes diet Insulin sliding scale Akathisia Most likely secondary to possible CVA We'll discuss it with the neurologist Plan / VTE VTE Prophylaxis Ordered?: Yes VS,Fishbone, I+O VS, Fishbone, I+O Laboratory Tests 06/21/20 17:28 06/22/20 07:55 Vital Signs Date Time Temp Pulse Resp B/P (MAP) Pulse Ox O2 Delivery O2 Flow Rate FiO2 06/22/20 14:00 170/74 06/22/20 12:00 98.3 67 9 95 Room Air I&O- Last 24 Hours up to 6 AM 9/18/20 06:00 Intake Total 1050 ml Output Total 1250 ml Balance -200 ml WENDY RAZO DO Jun 22, 2020 14:43
[2020-06-22] MEDS ORDERED: LORazepam 2 MG/ML VIAL As Ordered ONE (15:29)
[2020-06-22] MEDS ORDERED: LORazepam 2 MG/ML VIAL IV STA (15:42)
--- NOTE | 2020-06-22 17:53 | REPVR ---
PROCEDURE INFORMATION: Exam: CT Head Without Contrast Exam date and time: 06/22/2020 5:24 PM Age: 79 years old Clinical indication: Altered mental status/memory loss; Additional info: Stroke TECHNIQUE: Imaging protocol: Computed tomography of the head without contrast. Radiation optimization: All CT scans at this facility use at least one of these dose optimization techniques: automated exposure control; mA and/or kV adjustment per patient size (includes targeted exams where dose is matched to clinical indication); or iterative reconstruction. Other technique: STROKE PROTOCOL was implemented. COMPARISON: CT Head without contrast 06/21/2020 11:28 AM FINDINGS: Brain: No acute intracerebral abnormality or injury. No acute infarct or intracerebral bleed. Mild generalized cerebral atrophy with minimal patchy periventricular leukomalacia in both cerebral hemispheres, consistent most likely with chronic underlying small vessel / microvascular ischemic disease. No significant interval change since the previous head CT from 06/21/2020. [place] Stroke [facility] Early CT Score (ASPECTS score) = 10. Ventricles: No ventriculomegaly. Bones/joints: Unremarkable. No acute fracture. Paranasal sinuses: Visualized sinuses are unremarkable. No fluid levels. Mastoid air cells: Visualized mastoid air cells are well aerated. Soft tissues: Unremarkable. IMPRESSION: 1. No acute intracerebral abnormality or injury. No acute infarct or intracerebral bleed. 2. Mild generalized cerebral atrophy with minimal patchy periventricular leukomalacia in both cerebral hemispheres, consistent most likely with chronic underlying small vessel / microvascular ischemic disease. No significant interval change since the previous head CT from 06/21/2020. 3. [place] [facility]roke [facility] Early CT Score (ASPECTS score) = 10. Electronically signed by: Deny Isidro On 06/22/2020 17:52:42 PM
[2020-06-22] MEDS ORDERED: ASPIRIN 300 MG SUPP PR ONE (18:00)
[2020-06-22] MEDS: hydrALAZINE 20MG/ML 1ML VIAL (J0360 PER 20MG) IV SCH ×2 (18:00→22:48)
[2020-06-23] VITALS: BP 152/64
[2020-06-23] MEDS: hydrALAZINE 20MG/ML 1ML VIAL (J0360 PER 20MG) IV SCH ×6 (02:19→21:18)
[2020-06-23 04:00] VITALS: BP 142/48
[2020-06-23] MEDS: NS 1,000 ML IV SCH ×4 (06:05→21:26)
[2020-06-23 06:22] LABS: BASO # 0.1 10^3/uL (0.0-0.2); EOS # 0.1 10^3/uL (0.0-0.5); HEMATOCRIT 39.1 % (36.0-47.0); HEMOGLOBIN 13.6 g/dl (12.0-15.5); LYMPH % 22.4 % (24.0-44.0); MEAN CORPUSCULAR HEMOGLOBIN 32.5 pg (27.0-33.0); MEAN CORPUSCULAR HGB CONC 34.8 g/dl (32.0-36.5); MEAN CORPUSCULAR VOLUME 93.5 fl (80.0-96.0); MONO # 1.3 10^3/uL (0.0-0.8); MONO % 9.7 % (0.0-5.0); NEUTROPHILS # 8.5 10^3/uL (1.5-8.5); NEUTROPHILS % 64.2 % (36.0-66.0); PLATELET COUNT, AUTOMATED 247 10^3/uL (150-450); RED BLOOD COUNT 4.18 10^6/uL (4.00-5.40); WHITE BLOOD COUNT 13.2 10^3/uL (4.0-10.0)
[2020-06-23 06:53] LABS: ALT/SGPT 28 U/L (12-78); BILIRUBIN,TOTAL 0.8 MG/DL (0.2-1.0); BLOOD UREA NITROGEN 15 MG/DL (7-18); CALCIUM LEVEL 8.1 MG/DL (8.8-10.2); CARBON DIOXIDE LEVEL 19 MEQ/L (21-32); CHLORIDE LEVEL 112 MEQ/L (98-107); CREATININE FOR GFR 0.83 MG/DL (0.55-1.30); GLOMERULAR FILTRATION RATE > 60.0 (>32); GLUCOSE, FASTING 194 MG/DL (70-100); MAGNESIUM LEVEL 1.5 MG/DL (1.8-2.4); POTASSIUM SERUM 4.1 MEQ/L (3.5-5.1); SODIUM LEVEL 141 MEQ/L (136-145); TOTAL PROTEIN 6.6 GM/DL (6.4-8.2)
[2020-06-23 08:00] VITALS: BP 150/74
[2020-06-23] MEDS: ATORVASTATIN 20 MG TAB PO SCH (08:35)
[2020-06-23] MEDS: ASPIRIN 81 MG CHEW TABLET PO SCH (08:35)
[2020-06-23] MEDS: OMEPRAZOLE 20 MG CAP PO SCH (08:35)
[2020-06-23] MEDS: MAGNESIUM CHLORIDE 64 MG TABCR (SLO MAG) PO SCH (08:36)
[2020-06-23] MEDS: HEPARIN SOD (PORCINE) 5000UNITS/ML 1ML VIAL/SYRINGE SC SCH ×2 (08:36→21:26)
[2020-06-23] MEDS: lisinopriL 10 MG TAB PO SCH (08:39)
[2020-06-23] MEDS: HumaLOG INSULIN (NovoLOG) PER UNIT SC SCH ×4 (08:40→21:27)
[2020-06-23] MEDS: atenoloL 50 MG TAB PO SCH (08:41)
[2020-06-23] MEDS ORDERED: ASPIRIN 300 MG SUPP PR SCH (09:00)
--- NOTE | 2020-06-23 11:35 | ECGEPIP ---
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
--- NOTE | 2020-06-23 11:46 | IPNPDOC ---
Text Note Date of Service The patient was seen on 06/23/20. NOTE Subjective: Patient alert, oriented in the morning, not restless. Patient denied fever, chills, nausea, vomiting, diarrhea or dysuria Objective: GENERAL APPEARANCE: In moderate distress, restless HEENT: no scleral icterus, no JVD, EOMI CARDIOVASCULAR: S1S2 LUNGS: CTA ABDOMEN: soft & not tender w palpitation MUSCULOSKELETAL: no cyanosis, no swelling INTEGUMENT: no generalized palor NEUROLOGICAL: Left facial droop, no nuchal rigidity, follows commands Assessment/Plan Patient is 79 years old female with past medical history of diabetes mellitus, hypertension presented to the hospital with altered mental status. According to her daughter, pt developed hallucinations, lethargy, and left facial droop yesterday evening. Patient continues to be confused through the night and in the morning. In ER CT head negative, patient was found to have leukocytosis of 15.1, lactic acid 2.4, creatinine 2.4, magnesium 1.7. UA showed pyuria Problems (1) Sepsis Secondary to UTI Patient had leukocytosis, elevated lactic acid, altered mental status and kidney failure blood culture negative, urine culture positive for Klebsiella pneumonia IV fluid and ceftriaxone IV (2) CVA (cerebral vascular accident) Patient has left facial droop with altered mental status CT head was negative Await MRI, MRA, patient was unable to have it due to akathisia we will repeat carotid ultrasound. Patient was a restless unable to visualize right carotid artery Statin, aspirin Repeated head CT negative Neuro check Speech evaluation (3) Metabolic encephalopathy Resolved Multifactorial. Secondary to sepsis due to UTI and possible stroke See above (4) UTI (urinary tract infection) Patient has a history of recurrent UTI Await urine culture (5) Degenerative arthritis Pain management (6) KINJAL (acute kidney injury) Improved Secondary to sepsis Prerenal IV fluid Continue to monitor (7) Diabetes mellitus Diabetes diet Insulin sliding scale Akathisia Resolved Most likely secondary to possible CVA We'll discuss it with the neurologist Await MRI and MRA Plan / VTE VTE Prophylaxis Ordered?: Yes VS,Fishbone, I+O VS, Fishbone, I+O Laboratory Tests 06/23/20 05:22 Vital Signs Date Time Temp Pulse Resp B/P (MAP) Pulse Ox O2 Delivery O2 Flow Rate FiO2 06/23/20 08:41 84 06/23/20 08:39 150/74 06/23/20 08:00 98.8 22 94 Room Air I&O- Last 24 Hours up to 6 AM 06/23/20 05:59 Intake Total 1550 ml Output Total 1925 ml Balance -375 ml WENDY RAZO DO Jun 23, 2020 11:46
[2020-06-23 12:00] VITALS: BP 158/86
[2020-06-23] MEDS: cefTRIAXone SOD 1 GM in D5W MINI-BAG PLUS 50 ML IV SCH (12:15)
[2020-06-23 16:00] VITALS: BP 155/73
[2020-06-23 20:00] VITALS: BP 170/90
[2020-06-23] MEDS: ACETAMINOPHEN TAB 650MG DOSE (2X325MG) PO PRN (21:32)
--- NOTE | 2020-06-23 23:49 | IPNPDOC ---
Text Note Date of Service The patient was seen on 06/23/20. NOTE Received call from nursing and nursing burning supervisor about the pending stat MRI/MRA for Ms. Kelly that has been ordered for the last 3 days for the noted AMS and left facial droop as part of her stroke workup. Of note, the facial droop was reported to have been first noted approximately 24h before hospital presentation per H&P with source being daughter. Briefly, was also noted to have a UTI and AMS in addition to the facial droop. She has thus been started on antibiotic th erapy, but still pending completion of stroke workup imaging at this time for which the stat MRI in question is that imaging. Nursing called the night team to request for the Stat order to be downgraded to routine but we opted to keep it as stat and defer decision to de-escalate MRI imaging request to the day team, with the principal issue being that the MRI machine is down but the imaging is certainly indicated. 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 We therefore agreed to keep the order as is with the hope that Ms. Kelly would be top priority for her imaging as soon as the MRI machine is available for use. VS,Fishbone, I+O VS, Fishbone, I+O Laboratory Tests 06/23/20 05:22 Vital Signs Date Time Temp Pulse Resp B/P (MAP) Pulse Ox O2 Delivery O2 Flow Rate FiO2 06/23/20 21:18 150/72 06/23/20 20:00 98.4 73 18 94 Room Air I&O- Last 24 Hours up to 6 AM 06/23/20 06:00 Intake Total 1550 ml Output Total 2225 ml Balance -675 ml TRINA MAYER MD Jun 23, 2020 23:49
[2020-06-24] VITALS (7 sets, daily range): BP systolic 122–182; BP diastolic 65–92
[2020-06-24] MEDS: cefTRIAXone SOD 1 GM in D5W MINI-BAG PLUS 50 ML IV SCH ×2 (00:04→13:38)
[2020-06-24] MEDS: hydrALAZINE 20MG/ML 1ML VIAL (J0360 PER 20MG) IV SCH ×2 (02:06→05:24)
[2020-06-24] MEDS: NS 1,000 ML IV SCH (06:00)
[2020-06-24 06:25] LABS: BASO # 0.1 10^3/uL (0.0-0.2); BASO % 0.8 % (0.0-1.0); EOS # 0.3 10^3/uL (0.0-0.5); EOS % 2.4 % (0.0-3.0); HEMATOCRIT 37.2 % (36.0-47.0); HEMOGLOBIN 12.5 g/dl (12.0-15.5); LYMPH % 32.6 % (24.0-44.0); MEAN CORPUSCULAR HEMOGLOBIN 32.4 pg (27.0-33.0); MEAN CORPUSCULAR HGB CONC 33.6 g/dl (32.0-36.5); MEAN CORPUSCULAR VOLUME 96.4 fl (80.0-96.0); MONO # 1.4 10^3/uL (0.0-0.8); MONO % 11.5 % (0.0-5.0); NEUTROPHILS # 6.2 10^3/uL (1.5-8.5); NEUTROPHILS % 50.9 % (36.0-66.0); PLATELET COUNT, AUTOMATED 224 10^3/uL (150-450); RED BLOOD COUNT 3.86 10^6/uL (4.00-5.40); WHITE BLOOD COUNT 12.2 10^3/uL (4.0-10.0)
[2020-06-24 06:43] LABS: ALBUMIN 2.7 GM/DL (3.2-5.2); ALT/SGPT 23 U/L (12-78); BILIRUBIN,TOTAL 0.7 MG/DL (0.2-1.0); BLOOD UREA NITROGEN 15 MG/DL (7-18); CALCIUM LEVEL 7.6 MG/DL (8.8-10.2); CARBON DIOXIDE LEVEL 20 MEQ/L (21-32); CHLORIDE LEVEL 113 MEQ/L (98-107); CREATININE FOR GFR 0.88 MG/DL (0.55-1.30); GLOMERULAR FILTRATION RATE > 60.0 (>32); GLUCOSE, FASTING 193 MG/DL (70-100); MAGNESIUM LEVEL 1.5 MG/DL (1.8-2.4); POTASSIUM SERUM 4.1 MEQ/L (3.5-5.1); SODIUM LEVEL 139 MEQ/L (136-145)
[2020-06-24] MEDS: lisinopriL 10 MG TAB PO SCH (08:33)
[2020-06-24] MEDS: ASPIRIN 81 MG CHEW TABLET PO SCH (08:33)
[2020-06-24] MEDS: atenoloL 50 MG TAB PO SCH (08:34)
[2020-06-24] MEDS: predniSONE 20 MG TAB PO SCH (08:34)
[2020-06-24] MEDS: OMEPRAZOLE 20 MG CAP PO SCH (08:34)
[2020-06-24] MEDS: ATORVASTATIN 20 MG TAB PO SCH (08:34)
[2020-06-24] MEDS: HumaLOG INSULIN (NovoLOG) PER UNIT SC SCH ×4 (08:35→21:20)
[2020-06-24] MEDS: valACYclovir HCL 500 MG TAB PO SCH ×2 (08:35→21:19)
[2020-06-24] MEDS: MAGNESIUM CHLORIDE 64 MG TABCR (SLO MAG) PO SCH (08:35)
[2020-06-24] MEDS: HEPARIN SOD (PORCINE) 5000UNITS/ML 1ML VIAL/SYRINGE SC SCH ×2 (08:36→21:20)
[2020-06-24] MEDS ORDERED: MAG SULF 1GM/100ML (MAG RUN) 1 GM in IV 1 EA IV ONE (09:00)
[2020-06-24] MEDS ORDERED: hydrALAZINE 20MG/ML 1ML VIAL (J0360 PER 20MG) IV SCH (09:00)
[2020-06-24] MEDS ORDERED: hydrALAZINE 20MG/ML 1ML VIAL (J0360 PER 20MG) IV PRN (09:45)
[2020-06-24] MEDS: ACETAMINOPHEN TAB 650MG DOSE (2X325MG) PO PRN ×2 (10:22→15:51)
[2020-06-24] MEDS: BACLOFEN 10 MG TAB PO SCH ×3 (10:22→21:19)
[2020-06-24] MEDS: CitaloPRAM (CeleXA) 20 MG TAB PO SCH (10:22)
--- NOTE | 2020-06-24 12:55 | IPNPDOC ---
Text Note Date of Service The patient was seen on 06/24/20. NOTE Subjective: Patient alert, oriented in the morning, not restless. Patient denied fever, chills, nausea, vomiting, diarrhea or dysuria Objective: GENERAL APPEARANCE: In moderate distress, restless HEENT: no scleral icterus, no JVD, EOMI CARDIOVASCULAR: S1S2 LUNGS: CTA ABDOMEN: soft & not tender w palpitation MUSCULOSKELETAL: no cyanosis, no swelling INTEGUMENT: no generalized pallor NEUROLOGICAL: Left facial droop, no nuchal rigidity, follows commands Assessment/Plan Patient is 79 years old female with past medical history of diabetes mellitus, hypertension presented to the hospital with altered mental status. According to her daughter, pt developed hallucinations, lethargy, and left facial droop yesterday evening. Patient continues to be confused through the night and in the morning. In ER CT head negative, patient was found to have leukocytosis of 15.1, lactic acid 2.4, creatinine 2.4, magnesium 1.7. UA showed pyuria Problems (1) Sepsis Secondary to UTI Patient had leukocytosis, elevated lactic acid, altered mental status and kidney failure blood culture negative, urine culture positive for Klebsiella pneumonia IV fluid and ceftriaxone IV (2) CVA (cerebral vascular accident) Patient has left facial droop with altered mental status CT head was negative Await MRI, MRA, patient was unable to have it due to akathisia we will repeat carotid ultrasound. Patient was a restless unable to visualize right carotid artery Statin, aspirin Repeated head CT negative Neuro check Speech evaluation recommended to start valacyclovir and check Lyme antibody (3) Metabolic encephalopathy Resolved Multifactorial. Secondary to sepsis due to UTI and possible stroke See above (4) UTI (urinary tract infection) Patient has a history of recurrent UTI Await urine culture (5) Degenerative arthritis Pain management (6) KINJAL (acute kidney injury) Improved Secondary to sepsis Prerenal IV fluid Continue to monitor (7) Diabetes mellitus Diabetes diet Insulin sliding scale Akathisia Resolved Most likely secondary to possible CVA We'll discuss it with the neurologist Await MRI and MRA Plan / VTE VTE Prophylaxis Ordered?: Yes VS,Fishbone, I+O VS, Fishbone, I+O Laboratory Tests 06/24/20 05:49 Vital Signs Date Time Temp Pulse Resp B/P (MAP) Pulse Ox O2 Delivery O2 Flow Rate FiO2 06/24/20 11:48 97.6 66 18 122/84 (97 93 Room Air I&O- Last 24 Hours up to 6 AM 06/24/20 06:00 Intake Total 2200 ml Output Total 1200 ml Balance 1000 ml WENDY RAZO DO Jun 24, 2020 12:54
--- NOTE | 2020-06-24 13:44 | REPVR ---
PROCEDURE INFORMATION: Exam: MR Head Without Contrast Exam date and time: 06/24/2020 1:26 PM Age: 79 years old Clinical indication: Altered mental status/memory loss; Confusion or disorientation; Patient HX: AMS that has since subsided; Additional info: Rule out stroke TECHNIQUE: Imaging protocol: MR of the head without contrast. COMPARISON: 1. MRI-Brain without Contrast 11/09/2018 11:[address] Head without contrast 06/22/2020 5:33:41 PM FINDINGS: Brain: There is mild patchy increased T2 signal intensity within the bilateral cerebral periventricular white matter, consistent with chronic microvascular ischemic changes. There are few small focal areas of chronic ischemia in bilateral frontal, parietal and periatrial white matter. Chronic ischemic changes are seen in the massimo. There is no abnormal diffusion weighted signal intensity to suggest an acute ischemic event. There is mild diffuse cerebral atrophy present, consistent with this patient's age. Ventricles: The ventricular system demonstrates mild diffuse compensatory enlargement. Bones/joints: Unremarkable. Sinuses: Mild mucosal thickening is seen in the paranasal sinuses. Mastoid air cells: Bilateral mastoid effusions/mastoiditis. Orbits: Unremarkable. Soft tissues: Unremarkable. IMPRESSION: 1. No acute infarction, masses or hemorrhage is seen. No acute intracranial abnormality is identified. 2. Diffuse age-related cerebral atrophy and mild chronic microvascular white matter ischemic changes, without evidence of an acute intracranial abnormality. 3. There has been no adverse interval change since the previous study. Electronically signed by: Justin Bird On 06/24/2020 13:44:22 PM
--- NOTE | 2020-06-24 13:47 | REPVR ---
PROCEDURE INFORMATION: Exam: MR Angiogram Head Without Contrast, Arteries Exam date and time: 06/24/2020 1:26 PM Age: 79 years old Clinical indication: Cognitive deficit; Altered mental status; Patient HX: AMS that has since subsided; Additional info: Rule out stroke TECHNIQUE: Imaging protocol: MR angiogram head without contrast. Exam focused on the arteries. 3D rendering (Not supervised by radiologist): MIP and/or 3D reconstructed images were created by the technologist. COMPARISON: MRA BRAIN W/O CONTRAST 03/09/2014 1:00 PM FINDINGS: ANTERIOR CIRCULATION: Right internal carotid artery: Intracranial segment is patent with no significant stenosis. No aneurysm. Right middle cerebral artery: No occlusion or significant stenosis. No aneurysm. Right anterior cerebral artery: No occlusion or significant stenosis. No aneurysm. Left internal carotid artery: Intracranial segment is patent with no significant stenosis. No aneurysm. Left middle cerebral artery: No occlusion or significant stenosis. No aneurysm. Left anterior cerebral artery: No occlusion or significant stenosis. No aneurysm. POSTERIOR CIRCULATION: Right vertebral artery: No occlusion or significant stenosis. No aneurysm. Left vertebral artery: No occlusion or significant stenosis. No aneurysm. Basilar artery: No occlusion or significant stenosis. No aneurysm. Right posterior cerebral artery: No occlusion or significant stenosis. No aneurysm. Left posterior cerebral artery: origin. No occlusion or significant stenosis. No aneurysm. IMPRESSION: No stenosis.No occlusion. No aneurysm. Electronically signed by: Justin Bird On 06/24/2020 13:47:26 PM
[2020-06-25] VITALS: BP 166/78
[2020-06-25] MEDS: cefTRIAXone SOD 1 GM in D5W MINI-BAG PLUS 50 ML IV SCH ×2 (01:23→12:35)
[2020-06-25 04:00] VITALS: BP 158/70
[2020-06-25] MEDS: PERCOCET 5MG/325MG TAB PO PRN ×2 (04:28→11:26)
[2020-06-25 04:55] LABS: BASO # 0.1 10^3/uL (0.0-0.2); BASO % 0.7 % (0.0-1.0); EOS # 0.1 10^3/uL (0.0-0.5); EOS % 0.5 % (0.0-3.0); HEMATOCRIT 35.4 % (36.0-47.0); HEMOGLOBIN 12.4 g/dl (12.0-15.5); LYMPH # 4.4 10^3/uL (1.5-5.0); MEAN CORPUSCULAR HEMOGLOBIN 33.4 pg (27.0-33.0); MEAN CORPUSCULAR VOLUME 95.4 fl (80.0-96.0); MONO # 1.4 10^3/uL (0.0-0.8); NEUTROPHILS # 8.1 10^3/uL (1.5-8.5); NEUTROPHILS % 56.4 % (36.0-66.0); PLATELET COUNT, AUTOMATED 240 10^3/uL (150-450); RED BLOOD COUNT 3.71 10^6/uL (4.00-5.40); WHITE BLOOD COUNT 14.3 10^3/uL (4.0-10.0)
[2020-06-25 05:16] LABS: ALBUMIN 2.9 GM/DL (3.2-5.2); BILIRUBIN,TOTAL 0.5 MG/DL (0.2-1.0); CALCIUM LEVEL 8.2 MG/DL (8.8-10.2); CREATININE FOR GFR 1.03 MG/DL (0.55-1.30); GLOMERULAR FILTRATION RATE 54.9 (>32); POTASSIUM SERUM 4.3 MEQ/L (3.5-5.1); TOTAL PROTEIN 6.8 GM/DL (6.4-8.2)
--- NOTE | 2020-06-25 07:32 | ECHO ---
DATE OF PROCEDURE: 06/21/2020 Age: Gender: Female Height: 157 cm Weight: 86 kg REFERRING PHYSICIAN: rBad Townsend DO INDICATION: Acute stroke. MEASUREMENTS: 2D Measurements: Aortic root 3.2 cm Intraventricular septum 1.33 cm Posterior wall 1.34 cm Left ventricle diastole 4.8 cm Left atrium 4.2 cm Inferior vena cava 1.8 cm Doppler Measurements: No aortic stenosis No aortic regurgitation Aortic valve velocity 164 cm/s LVOT velocity 112 cm/s Very mild mitral regurgitation Mitral E velocity 61.7 cm/s Mitral A velocity 117 cm/s Mitral deceleration 222 msec Trace tricuspid regurgitation No pulmonic regurgitation MITRAL ANNULAR TISSUE DOPPLER E prime septal 5.3 cm/s, E prime lateral 5.4 cm/s DESCRIPTION: Rhythm was sinus rhythm and sinus bradycardia. This was a moderately technically difficult echocardiogram and note was made by the bead builder that the patient was uncooperative. No pericardial effusion. This was a 2D, M-mode, color flow Doppler, and pulsed wave Doppler examination including mitral annular tissue Doppler. CONCLUSIONS: 1. Mild concentric left ventricular hypertrophy. Normal regional LV wall motion and wall thickening. Normal LV systolic function. LVEF 65% by visual estimate. Grade 1 LV diastolic dysfunction. 2. Normal right ventricle size and systolic function. 3. Normal sized atrium. 4. Mild aortic valve sclerosis. No aortic regurgitation. 5. Mild mitral annular calcification. Very mild mitral regurgitation. 6. Otherwise normal appearing echocardiogram Doppler findings. MTDD
[2020-06-25 08:00] VITALS: BP 164/80
[2020-06-25] MEDS: valACYclovir HCL 500 MG TAB PO SCH (09:18)
[2020-06-25] MEDS: CitaloPRAM (CeleXA) 20 MG TAB PO SCH (09:18)
[2020-06-25] MEDS: BACLOFEN 10 MG TAB PO SCH (09:19)
[2020-06-25] MEDS: ATORVASTATIN 20 MG TAB PO SCH (09:19)
[2020-06-25] MEDS: ASPIRIN 81 MG CHEW TABLET PO SCH (09:19)
[2020-06-25] MEDS: OMEPRAZOLE 20 MG CAP PO SCH (09:19)
[2020-06-25] MEDS: lisinopriL 10 MG TAB PO SCH (09:19)
[2020-06-25 09:20] VITALS: BP 164/80
[2020-06-25] MEDS: atenoloL 50 MG TAB PO SCH (09:20)
[2020-06-25] MEDS: MAGNESIUM CHLORIDE 64 MG TABCR (SLO MAG) PO SCH (09:20)
[2020-06-25] MEDS: HEPARIN SOD (PORCINE) 5000UNITS/ML 1ML VIAL/SYRINGE SC SCH (09:20)
[2020-06-25] MEDS: predniSONE 20 MG TAB PO SCH (09:20)
[2020-06-25] MEDS: HumaLOG INSULIN (NovoLOG) PER UNIT SC SCH ×2 (09:26→12:35)
[2020-06-25] MEDS ORDERED: PRED20TA PO (10:20)
[2020-06-25] MEDS ORDERED: VALA500T5 PO (10:20)
[2020-06-25 12:00] VITALS: BP 164/82
[2020-06-25] MEDS ORDERED: LEVO250T12 PO (12:43)
--- NOTE | 2020-06-25 12:50 | DS.PDOC ---
Discharge Summary General Date of Admission Jun 21, 2020 at 14:11 Date of Discharge 06/25/20 Discharge Summary PROCEDURES PERFORMED DURING STAY: [None]. ADMITTING DIAGNOSES: Sepsis CVA Metabolic encephalopathy UTI (urinary tract infection) KINJAL (acute kidney injury) Diabetes mellitus Akathisia DISCHARGE DIAGNOSES: Sepsis CVA rule out Rocha's palsy Metabolic encephalopathy UTI (urinary tract infection) KINJAL (acute kidney injury) Diabetes mellitus Akathisia COMPLICATIONS/CHIEF COMPLAINT: UTI. HISTORY OF PRESENT ILLNESS: Patient is 79 years old female with past medical history of diabetes mellitus, hypertension presented to the hospital with altered mental status. According to her daughter, pt developed hallucinations, lethargy, and left facial droop yesterday evening. Patient continues to be confused through the night and in the morning. In ER CT head negative, patient was found to have leukocytosis of 15.1, lactic acid 2.4, creatinine 2.4, magnesium 1.7. UA showed pyuria HOSPITAL COURSE: During hospital stay following issue addressed (1) Sepsis Secondary to UTI Patient had leukocytosis, elevated lactic acid, altered mental status and kidney failure blood culture negative, urine culture positive for Klebsiella pneumonia IV fluid and ceftriaxone IV (2) CVA (cerebral vascular accident) rule out Patient has left facial droop with altered mental status CT head was negative MRI, MRA, patient negative Statin, aspirin Repeated head CT negative recommended to start valacyclovir and check Lyme antibody ( pending) due to Rocha's palsy (3) Metabolic encephalopathy Resolved Multifactorial. Secondary to sepsis due to UTI See above (4) UTI (urinary tract infection) Patient has a history of recurrent UTI urine culture positive for Klebsiella pneumonia (5) Degenerative arthritis Pain management (6) KINJAL (acute kidney injury) Improved Secondary to sepsis Prerenal IV fluid Continue to monitor (7) Diabetes mellitus Diabetes diet Insulin sliding scale Akathisia Resolved Most likely secondary to possible CVA We'll discuss it with the neurologist Await MRI and MRA DISCHARGE MEDICATIONS: Please see below. ALLERGIES: Please see below. PHYSICAL EXAMINATION ON DISCHARGE: VITAL SIGNS: Please see below. GENERAL APPEARANCE: In moderate distress, restless HEENT: no scleral icterus, no JVD, EOMI CARDIOVASCULAR: S1S2 LUNGS: CTA ABDOMEN: soft & not tender w palpitation MUSCULOSKELETAL: no cyanosis, no swelling INTEGUMENT: no generalized pallor NEUROLOGICAL: Left facial droop, no nuchal rigidity, follows commands LABORATORY DATA: Please see below. IMAGING: [facility] NAME: ANNITA CANNON DATE OF : 1940 BUSINESS NUMBER: [id number] AGE: 79 SEX: F REPORT #: [id number] ROOM: [facility] TECHNOLOGIST: ALIX DOCTOR: WENDY RAZO DO Ordered for Date&Time: 06/24/20 1411 cc: [~ rep ct ivnm] Service Date&Time: 06/24/20 1326 This report is in Signed status. Interpretation performed by [facility]. Thank you for having your radiology procedures performed at [facility] RADIOLOGY REPORT Date&Time printed: [~ rep prt dt last] [~ rep prt tm last] Page 2 of 2 [place] [id number] RADIOLOGY REPORT This report is in Signed status. Interpretation performed by [facility]. Thank you for having your radiology procedures performed at [facility] RADIOLOGY REPORT Date&Time printed: [~ rep prt dt last] [~ rep prt tm last] Page 1 of 1 Exam: MR Head Without Contrast Exam date and time: 06/24/2020 1:26 PM Age: 79 years old Clinical indication: Altered mental status/memory loss; Confusion or disorientation; Patient HX: AMS that has since subsided; Additional info: Rule out stroke TECHNIQUE: Imaging protocol: MR of the head without contrast. COMPARISON: 1. MRI-Brain without Contrast 11/09/2018 11:[address] Head without contrast 06/22/2020 5:33:41 PM FINDINGS: Brain: There is mild patchy increased T2 signal intensity within the bilateral cerebral periventricular white matter, consistent with chronic microvascular ischemic changes. There are few small focal areas of chronic ischemia in bilateral frontal, parietal and periatrial white matter. Chronic ischemic changes are seen in the massimo. There is no abnormal diffusion weighted signal intensity to suggest an acute ischemic event. There is mild diffuse cerebral atrophy present, consistent with this patient's age. Ventricles: The ventricular system demonstrates mild diffuse compensatory enlargement. Bones/joints: Unremarkable. Sinuses: Mild mucosal thickening is seen in the paranasal sinuses. Mastoid air cells: Bilateral mastoid effusions/mastoiditis. Orbits: Unremarkable. Soft tissues: Unremarkable. IMPRESSION: 1. No acute infarction, masses or hemorrhage is seen. No acute intracranial abnormality is identified. 2. Diffuse age-related cerebral atrophy and mild chronic microvascular white matter ischemic changes, without evidence of an acute intracranial abnormality. 3. There has been no adverse interval change since the previous study. Electronically signed by: Justin Bird On 06/24/2020 13:44:22 PM DD: JUSTIN BIRD MD 06/24/20 1326 DT: LANG 06/24/20 1344 DS: HAL 06/24/20 1344 [~ rep ct labl] PROGNOSIS: fair ACTIVITY: [As tolerated]. DIET: Cardiac DISPOSITION: Home ITEMS TO FOLLOWUP ON ON OUTPATIENT: Follow-up with neurologist and PCP DISCHARGE CONDITION: [Stable]. TIME SPENT ON DISCHARGE: Greater than 40 minutes. Vital Signs/I&Os Vital Signs Date Time Temp Pulse Resp B/P (MAP) Pulse Ox O2 Delivery O2 Flow Rate FiO2 06/25/20 12:00 97.6 65 20 164/82 (109) 93 Room Air I&O- Last 24 Hours up to 6 AM 06/25/20 06:00 Intake Total 935 ml Output Total 750 ml Balance 185 ml Laboratory Data Labs 24H Laboratory Tests 2 06/24/20 17:05: Bedside Glucose (Misc Panel) 309H 06/24/20 21:04: Bedside Glucose (Misc Panel) 335H 06/25/20 04:29: Immature Granulocyte % (Auto) 1.4, Neutrophils (%) (Auto) 56.4, Lymphocytes (%) (Auto) 31.0, Monocytes (%) (Auto) 10.0H, Eosinophils (%) (Auto) 0.5, Basophils (%) (Auto) 0.7, Neutrophils # (Auto) 8.1, Lymphocytes # (Auto) 4.4, Monocytes # (Auto) 1.4H, Eosinophils # (Auto) 0.1, Basophils # (Auto) 0.1, Nucleated Red Blood Cells % (auto) 0.0, Anion Gap 3L, Glomerular Filtration Rate 54.9, Calcium Level 8.2L, Magnesium Level 2.0, Total Bilirubin 0.5, Aspartate Amino Transf (AST/SGOT) 27, Alanine Aminotransferase (ALT/SGPT) 30, Alkaline Phosphatase 76, Total Protein 6.8, Albumin 2.9L, Albumin/Globulin Ratio 0.7L 06/25/20 11:56: Bedside Glucose (Misc Panel) 235H CBC/BMP Laboratory Tests 06/25/20 04:29 FSBS Laboratory Tests Test 06/24/20 17:05 06/24/20 21:04 06/25/20 11:56 Range/Units Bedside Glucose (Misc Panel) 309 335 235 83-110 MG/DL Microbiology Microbiology 06/22/20 Blood Culture - Preliminary, Resulted No Growth after 72 hours. All specime... 06/22/20 Blood Culture - Preliminary, Resulted No Growth after 72 hours. All specime... 06/21/20 Urine Culture - Final, Complete Klebsiella Pneumoniae Discharge Medications Scheduled Atenolol (Atenolol) 50 Mg Tab, 50 MG PO DAILY, (Reported) Atorvastatin Calcium (Atorvastatin Calcium) 40 Mg Tab, 40 MG PO DAILY, (Reported) Baclofen (Baclofen) 10 Mg Tab, 10 MG PO TID, (Reported) Citalopram Hydrobromide (Celexa) 20 Mg Tablet, 20 MG PO DAILY, (Reported) Esomeprazole Magnesium (Esomeprazole Magnesium Dr) 40 Mg Capsule.dr, 40 MG PO DAILY, (Reported) Levofloxacin (Levofloxacin) 250 Mg Tablet, 250 MG PO DAILY Lisinopril/Hydrochlorothiazide (Lisinopril-Hctz 10-12.5 mg Tab) 1 Tab Tab, 1 TAB PO DAILY, (Reported) Metformin HCl (Metformin HCl) 1,000 Mg Tab, 1,000 MG PO BID, (Reported) Prednisone (Prednisone) 20 Mg Tablet, 60 MG PO DAILY 60 mg daily 2 days 40 mg daily 2 days 20 mg daily 2 days 10 mg daily 2 days Valacyclovir HCl (Valacyclovir) 500 Mg Tablet, 500 MG PO BID Allergies Coded Allergies: propoxyphene (Verified Allergy, Unknown, 06/21/20) WENDY RAZO DO Jun 25, 2020 12:49
[2020-06-27 16:09] LABS: Lyme Disease IgG Ab 18 kDa Ban Absent (.); Lyme Disease IgG Ab 23 kDa Ban Absent (.); Lyme Disease IgG Ab 28 kDa Ban Absent (.); Lyme Disease IgG Ab 30 kDa Ban Absent (.); Lyme Disease IgG Ab 39 kDa Ban Absent (.); Lyme Disease IgG Ab 41 kDa Ban Absent (.); Lyme Disease IgG Ab 45 kDa Ban Absent (.); Lyme Disease IgG Ab 58 kDa Ban Absent (.); Lyme Disease IgG Ab 66 kDa Ban Absent (.); Lyme Disease IgG Ab 93 kDa Ban Absent (.); Lyme Disease IgG West Blot Int Negative (.); Lyme Disease IgG/IgM Antibodie <0.91 ISR (0.00-0.90); Lyme Disease IgM Ab 23 kDa Ban Present (.); Lyme Disease IgM Ab 39 kDa Ban Absent (.); Lyme Disease IgM Ab 41 kDa Ban Absent (.); Lyme Disease IgM Ab Quantitati 0.88 index (0.00-0.79); Lyme Disease IgM West Blot Int Negative (.)
--- NOTE | 2020-07-06 10:53 | CR ---
REFERRING PHYSICIAN: Brad Townsend MD REASON FOR CONSULTATION: Altered mental status and left-sided facial weakness. HISTORY OF PRESENT ILLNESS: The patient is an 79-year-old woman with history of diabetes and hypertension who presented to [facility] with altered mental status. She was noted to have hallucinations, lethargy, and left-sided facial droop. She continued to remain confused. CT scan of head did not show any acute disease. MRI scan of brain was attempted. Despite giving her Ativan, patient remained agitated, and MRI could not be done. When I examined the patient, she had left-sided facial weakness affecting her left side of mouth, and her left eye appeared weak, and she was unable to keep it closed compared to right side of face. Patient was confused and was unable to provide any history at that time. Patient denied any headache, neck, or back pain. Patient had received Ativan for the MRI scan of brain, and I saw her soon after, and patient was drowsy but arousable. DIAGNOSTIC STUDIES: CT scan of head was reportedly unremarkable. Blood tests showed WBC 15.1 with lactic acid 2.4, creatinine 2.4, magnesium 1.7, and urinalysis showed pyuria. PAST MEDICAL HISTORY: * Diabetes. * Hypertension. * Dyslipidemia. * Depression. * Acid reflux. ALLERGIES: Propoxyphene. HOME MEDICATIONS: * Atenolol 50 mg p.o. daily. * Lipitor 40 mg p.o. daily. * Baclofen 10 mg p.o. t.i.d. * Celexa 20 mg p.o. daily. * Nexium 40 mg p.o. daily. * Lisinopril/hydrochlorothiazide 10/12.5 mg p.o. daily. * Metformin 1,000 mg p.o. b.i.d. SOCIAL HISTORY: She is a former smoker. She denies alcohol or illicit drugs. PAST SURGICAL HISTORY: * Total hysterectomy. * Cholecystectomy. * Back surgery. * Knee surgery. * Appendectomy. * Knee replacement. * Endoscopy and colonoscopy for hemorrhoids and diverticulosis. FAMILY HISTORY: Father had bone cancer and heart disease. Mother had bowel obstruction and diabetes. REVIEW OF SYSTEMS: All systems were reviewed and found to be noncontributory except as mentioned in the history of present illness. PHYSICAL EXAMINATION: Temperature 98.3, pulse 67, respiratory rate 19, blood pressure 170/74, 95% saturation on room air. Heart: Regular rate and rhythm. Lungs: Clear to auscultation. Abdomen: Soft, nontender, nondistended. No pedal edema. No musculoskeletal abnormalities. No rash. Patient is drowsy after receiving Ativan for MRI scan of brain. She is arousable. She appears confused. She is able to follow simple commands. She is able to move all four extremities. She has left-sided lower motor neuron type facial weakness affecting her left lower face and closure of left eye. She is able to understand and express her words. She is oriented to self at this time. Plantars are downgoing. Deep tendon reflexes are 1+ throughout. Sensory, cerebellar, and gait testing could not be performed. 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 * Suspected delirium due to urinary tract infection. * There is concern for stroke. PLAN: CT scan of head would be repeated after 24 hours. Carotid ultrasound. Aspirin 300 mg per rectum daily until her mentation improves. Prednisone 60 mg p.o. in the morning for seven days and Valtrex 500 mg p.o. b.i.d. for seven days. MTDD
== END 2020-06-25 15:05 | disposition home health service (06) | DRG 871 ==
LOC: EDBD 10:44 → M ED 10:44 → M ED INP 14:11 → ENRESERV 14:26 → M PCU 16:16
PROVIDERS: ADMIT Internal Medicine; ATTEND Internal Medicine
DX: A41.9 Sepsis, unspecified organism (principal); G93.41 Metabolic encephalopathy; N39.0 Urinary tract infection, site not specified; N17.9 Acute kidney failure, unspecified; E11.9 Type 2 diabetes mellitus without complications; G51.0 Bell's palsy; G25.71 Drug induced akathisia; I10 Essential (primary) hypertension; M19.90 Unspecified osteoarthritis, unspecified site; Z79.899 Other long term (current) drug therapy; Z88.8 Allergy status to other drugs, medicaments and biological substances; E78.5 Hyperlipidemia, unspecified; F32.9 Major depressive disorder, single episode, unspecified; F41.9 Anxiety disorder, unspecified; K57.30 Diverticulosis of large intestine without perforation or abscess without bleeding

== ENCOUNTER 2020-07-20 08:25 | Inpatient (IN) | payer MEDICARE ==
[~2020-07-20] VITALS: Ht 162.6 cm; Wt 76.2 kg
[~2020-07-20 08:25] MED LIST changes: +CELE20TA PO; +ESOM40CA35 PO; +LEVO250T12 PO; +PRED20TA PO; +VALA500T5 PO
[2020-07-20 10:32] LABS: VENOUS BASE EXCESS -4.2 (-2.0-2.0); VENOUS O2 SATURATION 87.5 % (60.0-80.0); VENOUS PARTIAL PRESSURE CO2 44.3 mmHg (38.0-50.0); VENOUS PARTIAL PRESSURE O2 57.1 mmHg (30.0-50.0); VENOUS PH 7.314 UNITS (7.330-7.430); VENOUS STANDARD HCO3 20.8 MEQ/L; VENOUS TOTAL CO2 23.4 MEQ/L (24.0-28.0)
--- NOTE | 2020-07-20 10:32 | REPVR ---
PROCEDURE INFORMATION: Exam: XR Lumbosacral Spine, 4 or 5 Views Exam date and time: 07/20/2020 10:06 AM Age: 79 years old Clinical indication: Injury or trauma; Fall; Blunt trauma (contusions or hematomas); Injury date: 06/15/2020; Additional info: Marlee TECHNIQUE: Imaging protocol: XR of the lumbosacral spine, 4 or 5 views. COMPARISON: 1. MRI-Spine, L.S. without con 03/08/2015 3:[address] ABD PELVIS W/O CONTRAST 06/21/2020 11:28:08 AM FINDINGS: Vertebrae: Stable mild lumbar dextroscoliosis. Maintained lumbar lordosis. No significant spondylolisthesis. Bones are diffusely demineralized. Subacute mild compression fracture deformity involving the L1 vertebral body which has shown progressive loss of vertebral body height when compared to the recent CT, now with approximately 20% height loss. No other fractures. Multilevel degenerative change throughout the lower thoracic and lumbar spine with degenerative disc disease, most pronounced at L2-L3, L3-L4 and L4-L5. Multilevel facet arthrosis, most pronounced within the mid and lower lumbar spine. Degenerative change involving the SI joints. Soft tissues: Surgical clips right upper quadrant. Diffuse vascular calcification. IMPRESSION: 1. Subacute mild compression fracture deformity involving the L1 vertebral body, now with approximately 20% loss of vertebral body height, progressed when compared to recent CT. 2. Osteopenia and multilevel degenerative changes. Electronically signed by: Andrew Bazzi On 07/20/2020 10:31:45 AM
[2020-07-20 10:33] LABS: HEMATOCRIT 40.2 % (36.0-47.0); HEMOGLOBIN 13.6 g/dl (12.0-15.5); MEAN CORPUSCULAR HEMOGLOBIN 32.5 pg (27.0-33.0); MEAN CORPUSCULAR HGB CONC 33.8 g/dl (32.0-36.5); MEAN CORPUSCULAR VOLUME 96.2 fl (80.0-96.0); PLATELET COUNT, AUTOMATED 327 10^3/uL (150-450); RED BLOOD COUNT 4.18 10^6/uL (4.00-5.40); WHITE BLOOD COUNT 13.3 10^3/uL (4.0-10.0)
[2020-07-20 10:55] LABS: EOSINOPHILS 2 % (0-3); LYMPHOCYTES 39 % (16-44); NEUTROPHILS 56 % (28-66)
[2020-07-20 10:56] LABS: PLATELET ESTIMATE NORMAL (NORMAL)
[2020-07-20 11:13] LABS: ALBUMIN 3.4 GM/DL (3.2-5.2); BILIRUBIN,DIRECT 0.2 MG/DL (0.0-0.2); BILIRUBIN,TOTAL 0.6 MG/DL (0.2-1.0); CALCIUM LEVEL 9.2 MG/DL (8.8-10.2); CREATININE FOR GFR 1.57 MG/DL (0.55-1.30); GLOMERULAR FILTRATION RATE 33.7 (>32); POTASSIUM SERUM 4.7 MEQ/L (3.5-5.1); THYROID STIMULATING HORMONE 1.6 uIU/ML (0.358-3.740); TOTAL PROTEIN 7.3 GM/DL (6.4-8.2)
[2020-07-20] MEDS ORDERED: [UNRECOGNIZED DRUG - CODE] OS (14:39)
[2020-07-20] MEDS ORDERED: IBUP200T45 PO (14:39)
--- NOTE | 2020-07-20 17:47 | HPEPDOC ---
[facility] Medical History & Physical Date of Admission Jul 20, 2020 Date of Service: Jul 20, 2020 History and Physical CHIEF COMPLAINT: Confusion HISTORY OF PRESENT ILLNESS: Mrs. Kelly is an 79-year-old female with a history of hypertension, diabetes, recent admission to [facility] for sepsis secondary to UTI as well as workup of possible CVA. Brought in by her daughter, for altered mental status, confusion and visual hallucinations, which the patient reported in prior admission. Patient reports falling at home in the bathtub followed by low back pain. Her x-ray shows subacute mild compression fracture of L1 vertebra 20% loss of vertebral body height, progressive from recent CT. On arrival to the ED, BP 159/74, pulse 78, respiratory 16, pulse ox 95%, temperature 96.4. Labs pertinent for WBC 13.3. Creatinine 157. ALP 118. VBG pH 7.3, CO2 44.3, O2 57.1, bicarbonate 22. Patient admitted for workup of altered mental status, back pain status post fall and PFS for possible placement. Of note, on prior admission, patient was thought to have possible CVA. Given left-sided facial droop. Stroke ruled out with CT scan, MRI, MRA. 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 Patient was treated with 7 days of Valtrex and prednisone. His Lyme serology was suggested at the time. On chart review labs from June 24 showing positive Lyme IgM serology. Discussed this with Dr. Mina, patient failed to follow-up. PAST MEDICAL HISTORY: TYPE II DIABETES OSTEOPENIA DEXA NL 10/28/2012 HEMATURIA DEPRESSION ANXIETY HYPERTENSION, ESSENTIAL ALLERGIC RHINITIS DIVERTICULOSIS HYPERLIPIDEMIA, MIXED ARTHRITIS ESOPHAGEAL REFLUX DEGENERATIVE DISC DISEASE PAST SURGICAL HISTORY: CLARK & BSO CHOLECYSTECTOMY BACK SURGERY KNEE SURGERY R 03 APPENDECTOMY KNEE REPLACEMENT R 05 TRANSVAGINAL TAPING/CYSTOSCOPY DR. LEDEZMA 04/12 EGD: HH, GASTRITIS, POLYP - SUSU 11/17 COLONOSCOPY: HEMORRHOIDS, DIVERTICULOSIS - SUSU (F/UP 5YRS) 11/17 SOCIAL HISTORY: former smoker denies etohuse denies illicit drug use FAMILY HISTORY: FATHER: 75 YRS, BONE CANCER, DIAGNOSED WITH HEART DISEASE, CANCER MOTHER: 75 YRS, BOWEL OBSTRUCTION, DIAGNOSED WITH DIABETES SIBLINGS: , BROTHER 79 UNKNOWN CAUSE, HAD DIABETES, SISTER DIABETES ALLERGIES: Please see below. REVIEW OF SYSTEMS: CONSTITUTIONAL: patient denies fevers, chills HEENT: patient denies blurred vision, loss of vision, headache,. CARDIOVASCULAR: patient denies chest pain, palpitations. RESPIRATORY: patient denies shortness of breath, cough, hemoptysis. GASTROINTESTINAL: patient denies abdominal pain, n/v/d, blood in stool. GENITOURINARY: patient denies dysuria, discharge. SKIN: patient denies rashes. MUSCULOSKELETAL: patient denies joint pain, neck pain. NEUROLOGICAL: patient denies focal weakness, numbness, seizures. PSYCHIATRIC: patient denies SI/HI. Confused, alert and oriented 2 ENDOCRINE: patient denies polyuria, heat intolerance, cold intolerance. HEMATOLOGIC/LYMPHATIC: patient denies easy bruising. HOME MEDICATIONS: Please see below. PHYSICAL EXAMINATION: VITAL SIGNS: please see below General: Comfortable in bed, confused, alert and oriented 2 HEENT: PERRLA, EOMI, sclerae clear, noted erythema surrounding the left eye extending down to the left cheek, no purulence, no conjunctival injection noted in the eye. Left facial droop. Neck: supple, normal ROM, no JVD Respiratory: lungs CTAB, no wheeze, no rales, no crackles CVS: RRR, normal S1, S2, no murmurs Abdo: soft, no masses, no hepatosplenomegaly, BS+, no rebound tenderness, mild pain to palpation of her low abdomen Extremities: no edema, pulses 2+ MSK: no joint deformities, normal ROM Neuro: no focal neuro deficits, moving all 4 extremities, CN2-12 intact. Strength 5/5 in all 4 extremities. No nystagmus. Psych: calm, cooperative, AAO x 2. . She is pleasant, able to engage in conversation, and follows commands. She is slightly disoriented to time. LABORATORY DATA: See below. IMAGING: Lumbar X-ray (07/20/20): FINDINGS: Vertebrae: Stable mild lumbar dextroscoliosis. Maintained lumbar lordosis. No significant spondylolisthesis. Bones are diffusely demineralized. Subacute mild compression fracture deformity involving the L1 vertebral body which has shown progressive loss of vertebral body height when compared to the recent CT, now with approximately 20% height loss. No other fractures. Multilevel degenerative change throughout the lower thoracic and lumbar spine with degenerative disc disease, most pronounced at L2-L3, L3-L4 and L4-L5. Multilevel facet arthrosis, most pronounced within the mid and lower lumbar spine. Degenerative change involving the SI joints. Soft tissues: Surgical clips right upper quadrant. Diffuse vascular calcification. IMPRESSION: 1. Subacute mild compression fracture deformity involving the L1 vertebral body, now with approximately 20% loss of vertebral body height, progressed when compared to recent CT. 2. Osteopenia and multilevel degenerative changes. MICROBIOLOGY: Please see below. ASSESSMENT: 79-year-old female with history of hypertension, diabetes mellitus brought to the ED by family for altered mental status, confusion, and fall. She was recently admitted for sepsis secondary to UTI. Admitted to hospital service for evaluation of altered mental status as well as PFS evaluation for possible placement, physical therapy evaluation status post fall and compression fracture. PLAN: #AMS: etiology unknown, possibly infectious. Recently to delirium due to sepsis from UTI. Possible ongoing embolic encephalopathy. UA clear. Obtained chest x- ray. Blood cultures. Lyme disease serology IgM 0.88 on 06/24. Discussed with Dr. Craig, obtain repeat. ceftriaxone. LP for infectious etiology workup. #Facial droop: Present on prior admission 06/21/20, CVA ruled out on prior admission (CT x 2, MRI, MRA neg). 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 Was treated for 7 days with prednisone and Valtrex. Visine drops. Review shows positive Lyme IgM serology. Discussed this with Dr. Mina, recommends starting ceftriaxone versus doxycycline (x 3 weeks). Obtain repeat MRI, to further evaluate for encephalopathy/encephalitis. Also, Dr. holloway, IgM titer of 0.88 is intermediate, equivocal. Recommends repetition of Lyme serology. Recommend starting IV ceftriaxone, and LP. #KINJAL: Cr 1.57. IVF hydration. Avoid nephrotoxins #Back pain: tylenol. Hold home baclofen due to AMS. Vertebral compression fx, 20% loss vertical height. Consider ortho eval in am. PT eval. #HTN: resume home meds. CrCl 34. HCTZ 12.5. Atenolol 50 mg qhs. Hold lisinopril due to KINJAL. #DM2: ISS, hypoglycemic precaution, consistent carbohydrate diet. Hold metformin while inpatient. Lipitor 80 mg qhs. #depression: citalopram 20 mg PO daily at home. Hold for now due to ams. #Degenerative arthritis: tramadol 50 mg PO bid prn #GI ppx: protonix 40 mg PO daily DVT ppx: lovenox 40 mg sc daily Dispo: PFS and physical therapy evaluation for possible placement. Possible inad equate care at home. Vital Signs Vital Signs Date Time Temp Pulse Resp B/P (MAP) Pulse Ox O2 Delivery O2 Flow Rate FiO2 07/20/20 17:26 98.0 72 20 140/78 (98) 93 Room Air Laboratory Data Labs 24H Laboratory Tests 2 07/20/20 10:08: Neutrophils (%) (Auto) , Nucleated Red Blood Cells % (auto) 0.0, Neutrophils 56, Band Neutrophils 3, Lymphocytes (Manual) 39, Eosinophils (Manual) 2, Platelet E stimate NORMAL, Blood Gas Bicarbonate Standard 20.8, Venous Blood pH 7.314L, Venous Blood Partial Pressure CO2 44.3, Venous Blood Partial Pressure O2 57.1H, Venous Blood Total Carbon Dioxide 23.4L, Venous Blood HCO3 22.0L, Venous Blood Oxygen Saturation 87.5H, Venous Blood Base Excess -4.2L, Anion Gap 8, Glomerular Filtration Rate 33.7, Calcium Level 9.2, Total Bilirubin 0.6, Direct Bilirubin 0.2, Aspartate Amino Transf (AST/SGOT) 29, Alanine Aminotransferase (ALT/SGPT) 40, Alkaline Phosphatase 118H, Ammonia 14, Total Protein 7.3, Albumin 3.4, Albumin/Globulin Ratio 0.9L, Thyroid Stimulating Hormone (TSH) 1.600 07/20/20 10:20: POC Glucose (Misc Panel) 249H, POC Sodium (Misc Panel) 138, POC Potassium (Misc Panel) 4.5, POC Chloride (Misc Panel) 104, POC Total CO2 (Misc Panel) 21.0L, POC Blood Urea Nitrogen (Misc Panel 32H, POC Ionized Calcium (Misc Panel) 4.7, POC Creatinine (Misc Panel) 1.5H, POC Hematocrit (Misc Panel) 40.0 07/20/20 10:45: POC Troponin I (Misc) 0.01 07/20/20 13:28: Urine Color YELLOW, Urine Appearance HAZY, Urine pH 5.0, Urine Specific Sanders 1.019, Urine Protein NEGATIVE, Urine Glucose (UA) 1+H, Urine Ketones NEGATIVE, Urine Blood 1+H, Urine Nitrite NEGATIVE, Urine Bilirubin NEGATIVE, Urine Urobil inogen 0.2, Urine Leukocyte Esterase 1+H, Urine WBC (Auto) 6H, Urine RBC (Auto) 3, Urine Hyaline Casts (Auto) 11, Urine Bacteria (Auto) NEGATIVE, Urine Squamous Epithelial Cells 7, Urine Mucus (Auto) SMALL, Urine Sperm (Auto) CBC/BMP Laboratory Tests 07/20/20 10:08 Microbiology Microbiology 07/20/20 Urine Culture, Received Pending Home Medications Scheduled Atenolol (Atenolol) 50 Mg Tab, 50 MG PO QHS Atorvastatin Calcium (Atorvastatin Calcium) 40 Mg Tab, 40 MG PO DAILY Baclofen (Baclofen) 10 Mg Tab, 10 MG PO TID Citalopram Hydrobromide (Celexa) 20 Mg Tablet, 20 MG PO DAILY Esomeprazole Magnesium (Esomeprazole Magnesium Dr) 40 Mg Capsule.dr, 40 MG PO DAILY WAITING ON NEW RX, HAS NOT TAKEN IN AWHILE Ibuprofen (Ibu-200) 200 Mg Tablet, 400 MG PO TID Lisinopril/Hydrochlorothiazide (Lisinopril-Hctz 10-12.5 mg Tab) 1 Tab Tab, 1 TAB PO DAILY Metformin HCl (Metformin HCl) 1,000 Mg Tab, 1,000 MG PO BID Scheduled PRN Peg 400/Hypromellose/Glycerin (Visine Tears Drops) 15 Ml Drops, 1 DROP OS Q6H PRN for REDNESS/IRRITATION Allergies Coded Allergies: propoxyphene (Verified Allergy, Unknown, 07/20/20) A-FIB/CHADSVASC A-FIB History Current/History of A-Fib/PAF?: No Current PO Anticoag Therapy: No PRANAV GOMEZ MD Jul 20, 2020 17:46
[2020-07-20] MEDS ORDERED: MOM 30ML SUSPENSION UDC PO PRN (18:00)
[2020-07-20] MEDS ORDERED: GLUCAGON INJ 1MG VIAL SC PRN (18:00)
[2020-07-20] MEDS ORDERED: DEXTROSE 50% 50 ML SYRINGE IV PRN (18:00)
[2020-07-20] MEDS ORDERED: GLUCOSE 4GM CHEW TABLET PO PRN (18:00)
[2020-07-20] MEDS ORDERED: MAALOX 30 ML SUSP *UDC PO PRN (18:00)
[2020-07-20] MEDS ORDERED: TETRAHYDROZOLINE OPHTH 0.05% 15 ML BTL OS PRN (18:30)
[2020-07-20] MEDS ORDERED: cefTRIAXone SOD 2 GM in D5W MINI-BAG PLUS 50 ML IV SCH (19:15)
--- NOTE | 2020-07-20 21:33 | REPVR ---
PROCEDURE INFORMATION: Exam: MR Head Without Contrast Exam date and time: 07/20/2020 8:44 PM Age: 79 years old Clinical indication: Alteration of consciousness; Transient alteration of awareness; Patient HX: AMS TECHNIQUE: Imaging protocol: MR of the head without contrast. COMPARISON: MRI-Brain without Contrast 06/24/2020 12:44 PM FINDINGS: Examination is motion limited. Sagittal and axial T1 and axial diffusion weighted images. Age-related volume loss. No gross extra-axial fluid collection. No midline shift or intracranial mass effect. No diffusion restriction. Paranasal sinuses and mastoid air cells are grossly clear. IMPRESSION: 1. Motion limited examination. 2. No definite acute intracranial abnormality. Electronically signed by: Rich Parham On 07/20/2020 21:33:18 PM
[2020-07-20 22:00] VITALS: BP 149/77
[2020-07-20] MEDS: DOCUSATE SODIUM 100 MG CAP PO SCH (22:02)
[2020-07-20] MEDS: cefTRIAXone SOD 2 GM in D5W MINI-BAG PLUS 50 ML IV SCH (22:03)
[2020-07-20] MEDS: HumaLOG INSULIN (NovoLOG) PER UNIT SC SCH (22:03)
[2020-07-20] MEDS: atenoloL 50 MG TAB PO SCH (22:03)
[2020-07-20] MEDS: BACLOFEN 10 MG TAB PO SCH (22:04)
[2020-07-20] MEDS: NS 1,000 ML IV SCH (22:04)
[2020-07-21] MEDS: NS 1,000 ML IV SCH ×3 (04:56→17:34)
[2020-07-21 06:00] VITALS: BP 162/73
--- NOTE | 2020-07-21 07:42 | ECGEPIP ---
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
[2020-07-21] MEDS: HumaLOG INSULIN (NovoLOG) PER UNIT SC SCH ×4 (08:31→21:00)
[2020-07-21] MEDS: CitaloPRAM (CeleXA) 20 MG TAB PO SCH (08:31)
[2020-07-21] MEDS: ATORVASTATIN 20 MG TAB PO SCH (08:32)
[2020-07-21] MEDS: DOCUSATE SODIUM 100 MG CAP PO SCH ×2 (08:32→21:00)
[2020-07-21] MEDS: BACLOFEN 10 MG TAB PO SCH ×3 (08:32→21:51)
[2020-07-21] MEDS: ENOXAPARIN 40MG/0.4ML SYRINGE (J1650 PER 10MG) SC SCH (08:33)
[2020-07-21] MEDS: ACETAMINOPHEN TAB 650MG DOSE (2X325MG) PO PRN ×2 (08:33→13:26)
[2020-07-21] MEDS ORDERED: hydroCHLOROthiazide 12.5 MG CAPSULE PO ONE (09:00)
[2020-07-21] MEDS ORDERED: PANTOPRAZOLE 40MG TAB (PROTONIX) PO ONE (09:00)
[2020-07-21 14:00] VITALS: BP 149/67
--- NOTE | 2020-07-21 19:54 | IPNPDOC ---
Date Seen The patient was seen on 07/21/20. Progress Note SUBJECTIVE: patient seen and examined at bedside. Per RN was confused and agitated overnight. Family at bedside. Daughter reports a several month history of visual hallucination, falls. She often reports a strange woman falling off her bed. Daughter is able to care for her, but reports that she would likely use some help from home services. PFS is consulted. Patient denies fevers, chills, shortness of breath, nausea, vomiting, diarrhea. She is alert and oriented 2. OBJECTIVE PHYSICAL EXAMINATION: VITAL SIGNS: Please see below. CONSTITUTIONAL: patient denies fevers, chills HEENT: patient denies blurred vision, loss of vision, headache,. CARDIOVASCULAR: patient denies chest pain, palpitations. RESPIRATORY: patient denies shortness of breath, cough, hemoptysis. GASTROINTESTINAL: patient denies abdominal pain, n/v/d, blood in stool. GENITOURINARY: patient denies dysuria, discharge. SKIN: patient denies rashes. MUSCULOSKELETAL: patient denies joint pain, neck pain. NEUROLOGICAL: patient denies focal weakness, numbness, seizures. PSYCHIATRIC: patient denies SI/HI. Confused, alert and oriented 2 ENDOCRINE: patient denies polyuria, heat intolerance, cold intolerance. HEMATOLOGIC/LYMPHATIC: patient denies easy bruising. LABORATORY DATA, IMAGING STUDIES, MICROBIOLOGY: Please see below. DVT prophylaxis ordered?: Y ASSESSMENT: 79-year-old female with history of hypertension, diabetes mellitus brought to the ED by family for altered mental status, confusion, and fall. She was recently admitted for sepsis secondary to UTI. Admitted to hospital service for evaluation of altered mental status as well as PFS evaluation for possible placement, physical therapy evaluation status post fall and compression fracture. PLAN: #AMS: etiology unknown, possibly infectious. Recently to delirium due to sepsis from UTI. Possible ongoing embolic encephalopathy. UA clear. Obtained chest x- ray. Blood cultures. Lyme disease serology IgM 0.88 on 06/24. Discussed with Dr. Craig, obtain repeat. ceftriaxone. LP for infectious etiology workup. Noted. RPR screen positive. Pending EIS results. On differential. His tertiary syphilis. #Facial droop: Present on prior admission 06/21/20, CVA ruled out on prior admission (CT x 2, MRI, MRA neg). 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 Was treated for 7 days with prednisone and Valtrex. Visine drops. Review shows positive Lyme IgM serology. Discussed this with Dr. Mina, recommends starting ceftriaxone versus doxycycline (x 3 weeks). Obtain repeat MRI, to further evaluate for encephalopathy/encephalitis. Also, Dr. holloway, IgM titer of 0.88 is intermediate, equivocal. Recommends repetition of Lyme serology. Recommend starting IV ceftriaxone, and LP. IR consult for LP on 07/24 #KINJAL: Cr 1.57. IVF hydration. Avoid nephrotoxins #Back pain: tylenol. Hold home baclofen due to AMS. Vertebral compression fx, 20% loss vertical height. Consider ortho eval in am. PT eval. #HTN: resume home meds. CrCl 34. HCTZ 12.5. Atenolol 50 mg qhs. Hold lisinopril due to KINJAL. #DM2: ISS, hypoglycemic precaution, consistent carbohydrate diet. Hold metformin while inpatient. Lipitor 80 mg qhs. #depression: citalopram 20 mg PO daily at home. Hold for now due to ams. #Degenerative arthritis: tramadol 50 mg PO bid prn #GI ppx: protonix 40 mg PO daily DVT ppx: lovenox 40 mg sc daily VS, I&O, 24H, Fishbone Vital Signs/I&O Vital Signs Date Time Temp Pulse Resp B/P (MAP) Pulse Ox O2 Delivery O2 Flow Rate FiO2 07/21/20 14:00 99.3 66 16 149/67 (94) 95 Room Air I&O- Last 24 Hours up to 6 AM0 07/21/20 06:00 Intake Total 420 ml Output Total 0 ml Balance 420 ml Laboratory Data 24H LABS Laboratory Tests 2 07/20/20 20:02: Syphilis Serology REACTIVEA 07/20/20 21:53: Bedside Glucose (Misc Panel) 329H 07/21/20 06:34: Bedside Glucose (Misc Panel) 242H 07/21/20 06:38: 07/21/20 11:41: Bedside Glucose (Misc Panel) 244H 07/21/20 16:24: Bedside Glucose (Misc Panel) 256H Microbiology Microbiology 07/20/20 Blood Culture, Received Pending 07/20/20 Urine Culture - Final, Complete PRANAV GOMEZ MD Jul 21, 2020 19:54
[2020-07-21] MEDS: cefTRIAXone SOD 2 GM in D5W MINI-BAG PLUS 50 ML IV SCH (21:50)
[2020-07-21] MEDS: atenoloL 50 MG TAB PO SCH (21:51)
[2020-07-21 22:00] VITALS: BP 133/63
[2020-07-22] MEDS: NS 1,000 ML IV SCH ×3 (05:08→16:58)
[2020-07-22 06:00] VITALS: BP 156/80
[2020-07-22] MEDS: traMADol 50 MG TAB PO PRN ×2 (06:20→21:51)
[2020-07-22 07:22] LABS: BASO # 0.2 10^3/uL (0.0-0.2); BASO % 1.4 % (0.0-1.0); EOS # 0.3 10^3/uL (0.0-0.5); HEMATOCRIT 37.3 % (36.0-47.0); HEMOGLOBIN 12.4 g/dl (12.0-15.5); LYMPH # 4.1 10^3/uL (1.5-5.0); LYMPH % 37.8 % (24.0-44.0); MEAN CORPUSCULAR HEMOGLOBIN 32.1 pg (27.0-33.0); MEAN CORPUSCULAR HGB CONC 33.2 g/dl (32.0-36.5); MEAN CORPUSCULAR VOLUME 96.6 fl (80.0-96.0); MONO % 9.4 % (0.0-5.0); NEUTROPHILS % 46.2 % (36.0-66.0); PLATELET COUNT, AUTOMATED 310 10^3/uL (150-450); RED BLOOD COUNT 3.86 10^6/uL (4.00-5.40); WHITE BLOOD COUNT 10.8 10^3/uL (4.0-10.0)
--- NOTE | 2020-07-22 07:39 | IPNPDOC ---
Date Seen The patient was seen on 07/22/20. Progress Note SUBJECTIVE: patient seen and examined at bedside. Patient denies fevers, chills, shortness of breath, nausea, vomiting, diarrhea. She is alert and oriented 2. OBJECTIVE PHYSICAL EXAMINATION: General: Comfortable in bed, confused, alert and oriented 2 HEENT: PERRLA, EOMI, sclerae clear, noted erythema surrounding the left eye extending down to the left cheek, no purulence, no conjunctival injection noted in the eye. Left facial droop. Neck: supple, normal ROM, no JVD Respiratory: lungs CTAB, no wheeze, no rales, no crackles CVS: RRR, normal S1, S2, no murmurs Abdo: soft, no masses, no hepatosplenomegaly, BS+, no rebound tenderness, mild pain to palpation of her low abdomen Extremities: no edema, pulses 2+ MSK: no joint deformities, normal ROM Neuro: no focal neuro deficits, moving all 4 extremities, CN2-12 intact. Strength 5/5 in all 4 extremities. No nystagmus. Psych: calm, cooperative, AAO x 2. . She is pleasant, able to engage in conversation, and follows commands. She is slightly disoriented to time. LABORATORY DATA, IMAGING STUDIES, MICROBIOLOGY: Please see below. DVT prophylaxis ordered?: Y ASSESSMENT: 79-year-old female with history of hypertension, diabetes mellitus brought to the ED by family for altered mental status, confusion, and fall. She was recently admitted for sepsis secondary to UTI. Admitted to hospital service for evaluation of altered mental status as well as PFS evaluation for possible placement, physical therapy evaluation status post fall and compression fracture. PLAN: #AMS: etiology unknown, possibly infectious vs metabolic. Recent delirium due to sepsis from UTI. Urine cx neg. Blood cultures pending. CXR. Lyme disease serology IgM 0.88 on 06/24. Discussed with Dr. Craig, obtain repeat lyme IgM/IgG levels. IR consult for LP. RPR screen positive. Pending EIS. #Positive RPR: pending EIS result. Currently on ceftriaxone for empiric therapy (possible Lyme infection). Patient denies prior treatment for syphillis. #Equivocal Lyme serology: on 06/24. Discussed this with Dr. Mina, recommends starting ceftriaxone versus doxycycline (x 3 weeks). Obtain repeat MRI, to further evaluate for encephalopathy/encephalitis. Per Dr. Craig, IgM titer of 0.88 is intermediate, equivocal. Recommends repetition of Lyme serology. Recommend starting IV ceftriaxone, and LP. IR consult for LP on 07/24. #Facial droop: Present on prior admission 06/21/20, CVA ruled out on prior admission (CT x 2, MRI, MRA neg). Was seen by neuro. 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 Was treated for 7 days with prednisone and Valtrex. Visine drops. Review shows positive Lyme IgM serology. #KINJAL: Cr 1.57. IVF hydration. Avoid nephrotoxins #Back pain: tylenol. Hold home baclofen due to AMS. Vertebral compression fx, 20% loss vertical height. Discussed with Dr. Carroll, non operative. pain control. PT eval. Consider lumbar back brace to assist with pain as needed. #HTN: resume home meds. CrCl 34. HCTZ 12.5. Atenolol 50 mg qhs. Hold lisinopril due to KINJAL. #DM2: ISS, hypoglycemic precaution, consistent carbohydrate diet. Hold metformin while inpatient. Lipitor 80 mg qhs. #depression: citalopram 20 mg PO daily at home. Resumed. #Degenerative arthritis: tramadol 50 mg PO bid prn #GI ppx: protonix 40 mg PO daily DVT ppx: lovenox 40 mg sc daily VS, I&O, 24H, [facility] Vital Signs/I&O Vital Signs Date Time Temp Pulse Resp B/P (MAP) Pulse Ox O2 Delivery O2 Flow Rate FiO2 07/22/20 06:50 16 07/22/20 06:00 97.7 64 156/80 (105) 96 Room Air I&O- Last 24 Hours up to 6 AM 07/22/20 06:00 Intake Total 910 ml Output Total 300 ml Balance 610 ml Laboratory Data 24H LABS Laboratory Tests 2 07/21/20 11:41: Bedside Glucose (Misc Panel) 244H 07/21/20 16:24: Bedside Glucose (Misc Panel) 256H 07/21/20 19:47: Bedside Glucose (Misc Panel) 231H 07/22/20 06:53: Immature Granulocyte % (Auto) 2.2, Neutrophils (%) (Auto) 46.2, Lymphocytes (%) (Auto) 37.8, Monocytes (%) (Auto) 9.4H, Eosinophils (%) (Auto) 3.0, Basophils (%) (Auto) 1.4H, Neutrophils # (Auto) 5.0, Lymphocytes # (Auto) 4.1, Monocytes # (Auto) 1.0H, Eosinophils # (Auto) 0.3, Basophils # (Auto) 0.2, Nucleated Red Blood Cells % (auto) 0.0 CBC/BMP Laboratory Tests 07/22/20 06:53 Microbiology Microbiology 07/20/20 Blood Culture - Preliminary, Resulted No growth after 24 hours . All specim... 07/20/20 Urine Culture - Final, Complete PRANAV GOMEZ MD Jul 22, 2020 07:39
[2020-07-22 07:42] LABS: ALBUMIN 3.1 GM/DL (3.2-5.2); BILIRUBIN,TOTAL 0.4 MG/DL (0.2-1.0); CALCIUM LEVEL 8.4 MG/DL (8.8-10.2); CREATININE FOR GFR 1.03 MG/DL (0.55-1.30); GLOMERULAR FILTRATION RATE 54.9 (>32); MAGNESIUM LEVEL 1.5 MG/DL (1.8-2.4); POTASSIUM SERUM 5.1 MEQ/L (3.5-5.1); TOTAL PROTEIN 6.6 GM/DL (6.4-8.2)
[2020-07-22] MEDS: HumaLOG INSULIN (NovoLOG) PER UNIT SC SCH ×4 (08:26→21:00)
[2020-07-22] MEDS: ATORVASTATIN 20 MG TAB PO SCH (08:27)
[2020-07-22] MEDS: BACLOFEN 10 MG TAB PO SCH ×3 (08:27→21:51)
[2020-07-22] MEDS: PANTOPRAZOLE 40MG TAB (PROTONIX) PO SCH (08:27)
[2020-07-22] MEDS: ENOXAPARIN 40MG/0.4ML SYRINGE (J1650 PER 10MG) SC SCH (08:27)
[2020-07-22] MEDS: CitaloPRAM (CeleXA) 20 MG TAB PO SCH (08:27)
[2020-07-22] MEDS: DOCUSATE SODIUM 100 MG CAP PO SCH ×2 (08:27→21:52)
--- NOTE | 2020-07-22 11:33 | REP ---
INDICATION: wbc COMPARISON: 06/21/2020 TECHNIQUE: Single view of the chest. FINDINGS: The mediastinum and cardiac silhouette are stable and within normal limits. The lung henson demonstrate chronic interstitial changes without acute consolidation, effusion, or pneumothorax. Skeletal structures are intact. IMPRESSION: No acute cardiopulmonary process appreciated. <Electronically signed by Andrew Gomez > 07/22/20 1121
[2020-07-22 14:00] VITALS: BP 162/73
[2020-07-22] MEDS: atenoloL 50 MG TAB PO SCH (21:54)
[2020-07-22] MEDS: cefTRIAXone SOD 2 GM in D5W MINI-BAG PLUS 50 ML IV SCH (21:54)
[2020-07-22 22:00] VITALS: BP 153/82
[2020-07-23] MEDS: NS 1,000 ML IV SCH ×3 (01:28→19:12)
[2020-07-23 05:54] LABS: BASO # 0.1 10^3/uL (0.0-0.2); BASO % 1.1 % (0.0-1.0); EOS # 0.4 10^3/uL (0.0-0.5); EOS % 3.3 % (0.0-3.0); HEMATOCRIT 36.1 % (36.0-47.0); HEMOGLOBIN 12.2 g/dl (12.0-15.5); LYMPH # 5.3 10^3/uL (1.5-5.0); LYMPH % 43.4 % (24.0-44.0); MEAN CORPUSCULAR HEMOGLOBIN 32.4 pg (27.0-33.0); MEAN CORPUSCULAR HGB CONC 33.8 g/dl (32.0-36.5); MONO # 1.2 10^3/uL (0.0-0.8); MONO % 9.8 % (0.0-5.0); NEUTROPHILS % 40.6 % (36.0-66.0); PLATELET COUNT, AUTOMATED 286 10^3/uL (150-450); RED BLOOD COUNT 3.76 10^6/uL (4.00-5.40)
[2020-07-23 05:56] LABS: WHITE BLOOD COUNT 12.3 10^3/uL (4.0-10.0)
[2020-07-23 06:00] VITALS: BP 155/83
[2020-07-23 06:23] LABS: ALBUMIN 2.9 GM/DL (3.2-5.2); ALT/SGPT 25 U/L (12-78); BILIRUBIN,TOTAL 0.3 MG/DL (0.2-1.0); BLOOD UREA NITROGEN 16 MG/DL (7-18); CALCIUM LEVEL 8.6 MG/DL (8.8-10.2); CARBON DIOXIDE LEVEL 24 MEQ/L (21-32); CHLORIDE LEVEL 111 MEQ/L (98-107); CREATININE FOR GFR 0.89 MG/DL (0.55-1.30); GLOMERULAR FILTRATION RATE > 60.0 (>32); GLUCOSE, FASTING 186 MG/DL (70-100); MAGNESIUM LEVEL 1.4 MG/DL (1.8-2.4); POTASSIUM SERUM 4.7 MEQ/L (3.5-5.1); SODIUM LEVEL 139 MEQ/L (136-145); TOTAL PROTEIN 6.5 GM/DL (6.4-8.2)
[2020-07-23] MEDS: HumaLOG INSULIN (NovoLOG) PER UNIT SC SCH ×4 (07:58→21:00)
[2020-07-23] MEDS: DOCUSATE SODIUM 100 MG CAP PO SCH ×2 (08:00→21:55)
[2020-07-23] MEDS: ATORVASTATIN 20 MG TAB PO SCH (08:00)
[2020-07-23] MEDS: PANTOPRAZOLE 40MG TAB (PROTONIX) PO SCH (08:01)
[2020-07-23] MEDS: CitaloPRAM (CeleXA) 20 MG TAB PO SCH (08:01)
[2020-07-23] MEDS: BACLOFEN 10 MG TAB PO SCH ×3 (08:01→21:56)
[2020-07-23 08:07] VITALS: BP 162/75
[2020-07-23] MEDS: ENOXAPARIN 40MG/0.4ML SYRINGE (J1650 PER 10MG) SC SCH (09:00)
--- NOTE | 2020-07-23 09:53 | IPNPDOC ---
Date Seen The patient was seen on 07/23/20. Progress Note SUBJECTIVE: patient seen and examined at bedside. Patient denies fevers, chills, shortness of breath, nausea, vomiting, diarrhea. She is alert and oriented 2. OBJECTIVE PHYSICAL EXAMINATION: General: Comfortable in bed, confused, alert and oriented 2 HEENT: PERRLA, EOMI, sclerae clear, noted erythema surrounding the left eye extending down to the left cheek, no purulence, no conjunctival injection noted in the eye. Left facial droop. Neck: supple, normal ROM, no JVD Respiratory: lungs CTAB, no wheeze, no rales, no crackles CVS: RRR, normal S1, S2, no murmurs Abdo: soft, no masses, no hepatosplenomegaly, BS+, no rebound tenderness, mild pain to palpation of her low abdomen Extremities: no edema, pulses 2+ MSK: no joint deformities, normal ROM Neuro: no focal neuro deficits, moving all 4 extremities, CN2-12 intact. Strength 5/5 in all 4 extremities. No nystagmus. Psych: calm, cooperative, AAO x 2. . She is pleasant, able to engage in conversation, and follows commands. She is slightly disoriented to time. LABORATORY DATA, IMAGING STUDIES, MICROBIOLOGY: Please see below. DVT prophylaxis ordered?: Y ASSESSMENT: 79-year-old female with history of hypertension, diabetes mellitus brought to the ED by family for altered mental status, confusion, and fall. She was recently admitted for sepsis secondary to UTI. Admitted to hospital service for evaluation of altered mental status as well as PFS evaluation for possible placement, physical therapy evaluation status post fall and compression fracture. PLAN: #AMS: etiology unknown, possibly infectious vs metabolic. Recent delirium due to sepsis from UTI. Urine cx neg. Blood cultures pending. CXR. Lyme disease serology IgM 0.88 on 06/24. Discussed with Dr. Craig, obtain repeat lyme IgM/IgG levels. IR consult for LP. RPR screen positive. Pending EIS. D/w Dr. Fry, for LP today. ID consult, Dr. Craig aware. #Positive RPR: pending EIS result. Currently on ceftriaxone for empiric therapy (possible Lyme infection). Patient denies prior treatment for syphillis. #Equivocal Lyme serology: on 06/24. Discussed this with Dr. Mina, recommends starting ceftriaxone versus doxycycline (x 3 weeks). Obtain repeat MRI, to further evaluate for encephalopathy/encephalitis. Per Dr. Craig, IgM titer of 0.88 is intermediate, equivocal. Recommends repetition of Lyme serology. Recommend starting IV ceftriaxone, and LP. IR consult for LP on 07/24. ID consult. #Facial droop: Present on prior admission 06/21/20, CVA ruled out on prior a dmission (CT x 2, MRI, MRA neg). Was seen by neuro. 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 Was treated for 7 days with prednisone and Valtrex. Visine drops. Review shows positive Lyme IgM serology. #KINJAL: resolved. DC IVF. #Back pain: tylenol. Hold home baclofen due to AMS. Vertebral compression fx, 20% loss vertical height. Discussed with Dr. Carroll, non operative. pain control. PT eval. Consider lumbar back brace to assist with pain as needed. #HTN: resume home meds. CrCl 34. HCTZ 12.5. Atenolol 50 mg qhs. Hold lisinopril due to KINJAL. #DM2: ISS, hypoglycemic precaution, consistent carbohydrate diet. Hold metformin while inpatient. Lipitor 80 mg qhs. #depression: citalopram 20 mg PO daily at home. Resumed. #Degenerative arthritis: tramadol 50 mg PO bid prn #GI ppx: protonix 40 mg PO daily DVT ppx: lovenox 40 mg sc daily VS, I&O, 24H, Fishbone Vital Signs/I&O Vital Signs Date Time Temp Pulse Resp B/P (MAP) Pulse Ox O2 Delivery O2 Flow Rate FiO2 07/23/20 08:07 98.7 61 20 162/75 (104) 95 Room Air I&O- Last 24 Hours up to 6 AM 07/23/20 06:00 Intake Total 1250 ml Output Total 1100 ml Balance 150 ml Laboratory Data 24H LABS Laboratory Tests 2 07/22/20 11:31: Bedside Glucose (Misc Panel) 216H 07/22/20 16:29: Bedside Glucose (Misc Panel) 258H 07/22/20 19:46: Bedside Glucose (Misc Panel) 166H 07/23/20 05:35: Immature Granulocyte % (Auto) 1.8, Neutrophils (%) (Auto) 40.6, Lymphocytes (%) (Auto) 43.4, Monocytes (%) (Auto) 9.8H, Eosinophils (%) (Auto) 3.3H, Basophils ( %) (Auto) 1.1H, Neutrophils # (Auto) 5.0, Lymphocytes # (Auto) 5.3H, Monocytes # (Auto) 1.2H, Eosinophils # (Auto) 0.4, Basophils # (Auto) 0.1, Nucleated Red Blood Cells % (auto) 0.0, Anion Gap 4L, Glomerular Filtration Rate > 60.0, Calcium Level 8.6L, Magnesium Level 1.4L, Total Bilirubin 0.3, Aspartate Amino Transf (AST/SGOT) 13, Alanine Aminotransferase (ALT/SGPT) 25, Alkaline Phosphatase 95, Total Protein 6.5, Albumin 2.9L, Albumin/Globulin Ratio 0.8L CBC/BMP Laboratory Tests 07/23/20 05:35 Microbiology Microbiology 07/20/20 Blood Culture - Preliminary, Resulted No Growth after 48 hours. All Specime... 07/20/20 Urine Culture - Final, Complete PRANAV GOMEZ MD Jul 23, 2020 09:53
[2020-07-23] MEDS: MAG SULF 1GM/100ML (MAG RUN) 1 GM in IV 1 EA IV SCH ×2 (10:11→11:55)
[2020-07-23 14:01] VITALS: BP 165/77
[2020-07-23 17:12] LABS: CSF TUBE# GLU TUBE 2; CSF TUBE# TP TUBE 2; GLUCOSE CSF 124 MG/DL (40-75); TOTAL PROTEIN,CSF 41 MG/DL (15-45)
[2020-07-23 20:53] LABS: APPEARANCE, CSF CLEAR (CLEAR); COLOR, CSF COLORLESS (COLORLESS); CSF TUBE# CELL CNT TUBE 1
[2020-07-23 20:54] LABS: APPEARANCE, CSF CLEAR (CLEAR); COLOR, CSF COLORLESS (COLORLESS); CSF TUBE# CELL CNT TUBE 4
[2020-07-23] MEDS: atenoloL 50 MG TAB PO SCH (21:56)
[2020-07-23 22:00] VITALS: BP 164/77
[2020-07-23] MEDS: cefTRIAXone SOD 2 GM in D5W MINI-BAG PLUS 50 ML IV SCH (23:08)
[2020-07-24 06:00] VITALS: BP 168/80
[2020-07-24 06:09] LABS: BASO # 0.1 10^3/uL (0.0-0.2); BASO % 0.8 % (0.0-1.0); EOS # 0.3 10^3/uL (0.0-0.5); EOS % 2.3 % (0.0-3.0); HEMOGLOBIN 12.3 g/dl (12.0-15.5); LYMPH # 3.6 10^3/uL (1.5-5.0); LYMPH % 28.1 % (24.0-44.0); MEAN CORPUSCULAR HEMOGLOBIN 31.6 pg (27.0-33.0); MEAN CORPUSCULAR HGB CONC 33.2 g/dl (32.0-36.5); MEAN CORPUSCULAR VOLUME 95.1 fl (80.0-96.0); MONO # 1.2 10^3/uL (0.0-0.8); MONO % 9.3 % (0.0-5.0); NEUTROPHILS # 7.4 10^3/uL (1.5-8.5); NEUTROPHILS % 58.2 % (36.0-66.0); PLATELET COUNT, AUTOMATED 295 10^3/uL (150-450); RED BLOOD COUNT 3.89 10^6/uL (4.00-5.40); WHITE BLOOD COUNT 12.7 10^3/uL (4.0-10.0)
[2020-07-24 06:19] LABS: ALBUMIN 3.2 GM/DL (3.2-5.2); ALT/SGPT 24 U/L (12-78); BILIRUBIN,TOTAL 0.6 MG/DL (0.2-1.0); BLOOD UREA NITROGEN 14 MG/DL (7-18); C REACTIVE PROTEIN QUANTITATIV 0.34 MG/DL (0.00-0.30); CALCIUM LEVEL 9.1 MG/DL (8.8-10.2); CARBON DIOXIDE LEVEL 26 MEQ/L (21-32); CHLORIDE LEVEL 106 MEQ/L (98-107); CREATININE FOR GFR 0.84 MG/DL (0.55-1.30); GLOMERULAR FILTRATION RATE > 60.0 (>32); GLUCOSE, FASTING 224 MG/DL (70-100); MAGNESIUM LEVEL 1.6 MG/DL (1.8-2.4); POTASSIUM SERUM 4.6 MEQ/L (3.5-5.1); SODIUM LEVEL 135 MEQ/L (136-145); TOTAL PROTEIN 6.9 GM/DL (6.4-8.2)
[2020-07-24 07:26] LABS: ERYTHROCYTE SEDIMENTATION RATE 45 mm/hr (0-30)
--- NOTE | 2020-07-24 07:50 | CR ---
DATE OF CONSULTATION: 07/23/2020 REASON FOR CONSULTATION: I was asked to consult by Dr. Denson for evaluation of abnormal Lyme disease test and positive syphilis serology in a patient with acute mental status changes. HISTORY OF PRESENT ILLNESS: Mrs. Kelly is a pleasant, 79-year-old female with a history of hypertension and diabetes who was admitted to [facility] on 06/21 and discharged on 06/25 with auditory hallucination and a [place] palsy. The patient was treated with IV ceftriaxone for five days and on discharge, she received Valtrex 500 mg b.i.d.with prednisone for a total of seven days after she was seen in consultation by Dr. Mina. The symptoms that she had presented with were hallucination, lethargy and left facial droop. CT of head was negative. Brain MRI showed age-related atrophy. Vascular ultrasound showed right-sided carotid artery stenosis less than 50%. The patient readmitted for similar symptoms of confusion and hallucinations and she had a fall at home in her bathroom due to her confusion. She has a subacute compression fracture of L1 on LS spine XRAY , She has mild low back. The patient is pleasantly confused. She still has a left facial droop. PAST MEDICAL HISTORY: * Diabetes. * Osteopenia. * Compression fracture. * History of hematuria. * History of depression and anxiety. * Essential hypertension. * Allergic rhinitis. * Diverticulosis. * Hyperlipidemia. * Osteoarthritis. * Esophageal reflux disease. * Degenerative disc disease. PAST SURGICAL HISTORY: * Hysterectomy. * Cholecystectomy. * Back surgery. * Appendectomy. * Right total knee replacement, 2004. * Cystoscopy with transvaginal taping [place] [address] Hugo. * Endoscopy showed gastritis and a polyp done by Dr. Smith in 2012. * Colonoscopy. * Hemorrhoids. * Diverticulosis. SOCIAL HISTORY: She quit smoking, denies alcohol abuse or illicit drug use. She lives at home in her own mobile home with her daughter and son in law. She states she is a but she was for 12 years?? to her who 12 years ago, she has two kids. FAMILY HISTORY: Father had bone cancer, at 75 and mother had diabetes and bowel obstruction. REVIEW OF SYSTEMS: She denies any fever or chills. Review of her previous record had no fever. She denies blurry vision or headache. She denies any chest pain or palpitation, no cough or shortness of breath, no abdominal pain, nausea, vomiting, diarrhea, no dysuria, hematuria. She does realize she is confused and states that she saw shoes on the wall instead of the gloves. MEDICATIONS: * Pantoprazole 40 mg daily. * Lovenox 40 mg subcu daily. * Lipitor 40 mg p.o. daily. * Citalopram 20 mg p.o.daily. * Ceftriaxone 2 gm IV q.24 hours. * Colace 100 mg p.o. b.i.d. * Atenolol 50 mg p.o.q.h.s. * Baclofen 10 mg p.o. t.i.d. * Tramadol 50 mg p.o. b.i.d. p.r.n. * Visine p.r.n. ALLERGIES: PROPOXYPHENE LABORATORY DATA: White count fluctuates between 10 and 14,000, today was 12.3, hemoglobin 12.2, hematocrit 36.1, platelets 286, 40% neutrophils, 43% lymphocytes, 10% monocytes, 3% eosinophils. Sodium 139, potassium 4.7, chloride 111, bicarb 24, BUN 16, creatinine 0.89, glucose 186, calcium 8.6, magnesium 1.4, bilirubin 0.3, AST 13, ALT 25, alk phos 95, total protein 6.5, albumin 2.9. Drug screen was done on 06/21, was negative for alcohol and any drugs. Serology: Lyme had one out of three positive IgM bands with an IgM quantitation of 0.88. Western blot was negative. IgM and IgG: There were no IgG bands. Syphilis serology done on 07/20 is positive but RPR is pending and T pallidum antibodies confirmation are pending. Urine culture on 06/21 had Klebsiella pneumoniae with two negative blood cultures. Urine culture and sensitivity were negative. Blood culture was negative. CSF BioFire PCR was negative. CSF: White cells were 6-10 white cells, less than 2 red cells. Glucose 124, total protein 41. Troponin I and Lyme serology and CSF is pending. Chest x-ray done on 07/22 shows no acute cardiopulmonary process. Single view of the chest and brain MRI showed age-related atrophy limited due to motion, no shift, no masses. PHYSICAL EXAMINATION: She is a pleasant, healthy female in no acute distress, smiling, pleasantly confused. Neck is supple, no JVD, no bruits, no neck stiffness. Normal range of motion. Heart: Normal S1, S2, no murmurs, rubs or gallops. Lungs are clear, no wheezes, rales or rhonchi. Abdomen: Soft, nontender, no hepatosplenomegaly. Back: Mild lumbosacral tenderness, L1, L2. Extremities: No clubbing, cyanosis or edema, right total knee replacement with good range of motion. Oropharynx is clear with no thrush. Skin with no lesions. She has multiple tattoos, she states are only 11 years old. Neurologic exam: She does have a left facial droop but otherwise cranial nerves are intact, upper and lower extremities strengths are normal. She is confused to time and to recollection of events and dates. IMPRESSION: This is an 79-year-old female who has had confusion with hallucinations and left facial droop since at least a month. She was treated for presumptive UTI last admission. She was also treated for left facial droop for presumptive [place] palsy from HSV with Valtrex for one week and prednisone without improvement. She is admitted for further workup of mental status changes. Her lumbar puncture is benign. MRI is negative for any acute changes or encephalitis. Clinically, the patient does not have meningoencephalitis , she has no fever or headache to suggest an infectious etiology. Her Lyme serology is false positive. This is not an acute presentation of Lyme disease with 1/3 IgM and no IgG bands. Lyme disease meningitis should be in the second phase and should have Lyme positive IgG. Syphilis serology could possibly be a presentation of late syphilis although could also be cross reacting with a Lyme antibody. PLAN: Continue with IV Rocephin at this time until we have the results of Lyme serology and syphilis testing. I will discuss with hospitalist if they got an opening pressure. I would suggest obtaining follow-up consultation with urology and possibly an EEG. Other significant differential will be autoimmune encephalitis, add oligoclonal bands to CSF done this morning. JESSICAD
[2020-07-24] MEDS: ENOXAPARIN 40MG/0.4ML SYRINGE (J1650 PER 10MG) SC SCH (08:34)
[2020-07-24] MEDS: PANTOPRAZOLE 40MG TAB (PROTONIX) PO SCH (08:35)
[2020-07-24] MEDS: BACLOFEN 10 MG TAB PO SCH ×3 (08:35→22:02)
[2020-07-24] MEDS: ATORVASTATIN 20 MG TAB PO SCH (08:35)
[2020-07-24] MEDS: DOCUSATE SODIUM 100 MG CAP PO SCH ×2 (08:35→22:02)
[2020-07-24] MEDS: CitaloPRAM (CeleXA) 20 MG TAB PO SCH (08:35)
[2020-07-24] MEDS: traMADol 50 MG TAB PO PRN (08:36)
[2020-07-24] MEDS: HumaLOG INSULIN (NovoLOG) PER UNIT SC SCH ×4 (08:36→21:00)
[2020-07-24 14:00] VITALS: BP 151/77
--- NOTE | 2020-07-24 14:45 | REP ---
LUMBAR PUNCTURE: The procedure was performed under the general supervision of Dr. Bar. The risks and benefits of the procedure were explained to the patient and informed consent was obtained by the health care proxy. PROCEDURE: The L3-4 interspace was localized using fluoroscopy guidance. The skin was prepped and draped in a sterile fashion. 1% lidocaine was used as a local anesthetic. Using fluoroscopic guidance, a 22-gauge spinal needle was inserted and advanced into the thecal sac. 12 cc of spinal fluid was withdrawn and sent to the lab. The patient tolerated the procedure well and there were no immediate complications. After the appropriate amount of monitored convalescence, the patient was discharged from the department. Less than 6 seconds of fluoroscopy time was utilized for this procedure. MARY
--- NOTE | 2020-07-24 16:54 | IPNPDOC ---
Text Note Date of Service The patient was seen on 07/24/20. NOTE Subjective: Patient seen and examined this morning at bedside she is doing well alert and oriented 3. Conversational. No overnight events Objective: Constitutional: Awake and alert, in no apparent distress ENT: Sclera are clear. Mucosa is moist. Respiratory: Lungs CTA bilaterally. No respiratory distress. No use of accessory muscles. Cardiovascular: RRR S1 and S2 are normal, no murmur Gastrointestinal: Abdomen is soft, non distended, non tender, BS present. Musculoskeletal: No edema. No joint deformities. RUE 5/5, LUE 5/5, BLE 5/5 Neurologic: No focal neurological deficit. Subtle left facial droop. Mental Status: A&O x3, normal affect conversational. Skin: Warm, dry some mild erythema around the left eye Assessment/plan 79-year-old female with history of hypertension, diabetes mellitus brought to the ED by family for altered mental status, confusion, and fall with compression fracture. She was recently admitted for sepsis secondary to UTI. Admitted to [facility] for evaluation of altered mental status as well as PFS evaluation for possible placement, physical therapy evaluation status post fall and compression fracture. Her AMS seems to have improved significantly. # AMS: etiology unknown, possibly infectious vs metabolic. Recent delirium due to sepsis from UTI. Urine cx neg. Blood cultures pending. CXR. Lyme disease serology IgM 0.88 on 06/24. Discussed with Dr. Craig, obtain repeat lyme IgM/IgG levels. RPR screen positive. LP done 07/23/20 results pending. ID consulted. # Positive RPR: Ceftriaxone empiric therapy covers both lyme and syphillis. Patient denies prior treatment for syphillis. # Equivocal Lyme serology: on 06/24. Discussed this with Dr. Mina, recommends starting ceftriaxone versus doxycycline (x 3 weeks). Obtain repeat MRI, to further evaluate for encephalopathy/encephalitis. Per Dr. Craig, IgM titer of 0.88 is intermediate, equivocal. Recommends repetition of Lyme serology. Recommend starting IV ceftriaxone, and LP. IR consult for LP on 07/24. ID consult. # Facial droop: Present on prior admission 06/21/20, CVA ruled out on prior admission (CT x 2, MRI, MRA neg). Was seen by neuro. 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 Was treated for 7 days with prednisone and Valtrex. Visine drops. Review shows positive Lyme IgM serology. # KINJAL: resolved. DC IVF. # Back pain: tylenol. Hold home baclofen due to AMS. Vertebral compression fx, 20% loss vertical height. Discussed with Dr. Carroll, non operative. pain control. PT eval. Consider lumbar back brace to assist with pain as needed. # HTN: HCTZ 12.5. Atenolol 50 mg qhs. Hold lisinopril due to KINJAL. # DM2: ISS, hypoglycemic precaution Lipitor 80 mg qhs. # depression: home citalopram # Degenerative arthritis: tramadol 50 mg PO bid prn # GI ppx: protonix 40 mg PO daily # DVT ppx: lovenox 40 mg sc daily [facility] VSTalisha, I+O VSTalisha I+O Laboratory Tests 07/24/20 05:40 Vital Signs Date Time Temp Pulse Resp B/P (MAP) Pulse Ox O2 Delivery O2 Flow Rate FiO2 07/24/20 14:00 98.7 60 17 151/77 (101) 92 Room Air I&O- Last 24 Hours up to 6 AM 07/24/20 06:00 Intake Total 2460 ml Output Total 450 ml Balance 2009 ml STEVEN GOETZ MD Jul 24, 2020 16:54
[2020-07-24 20:11] LABS: Lyme Disease IgG Ab 18 kDa Ban Absent (.); Lyme Disease IgG Ab 23 kDa Ban Absent (.); Lyme Disease IgG Ab 28 kDa Ban Absent (.); Lyme Disease IgG Ab 30 kDa Ban Absent (.); Lyme Disease IgG Ab 39 kDa Ban Absent (.); Lyme Disease IgG Ab 41 kDa Ban Absent (.); Lyme Disease IgG Ab 45 kDa Ban Absent (.); Lyme Disease IgG Ab 58 kDa Ban Absent (.); Lyme Disease IgG Ab 66 kDa Ban Absent (.); Lyme Disease IgG Ab 93 kDa Ban Absent (.); Lyme Disease IgG West Blot Int Negative (.); Lyme Disease IgG/IgM Antibodie <0.91 ISR (0.00-0.90); Lyme Disease IgM Ab 23 kDa Ban Absent (.); Lyme Disease IgM Ab 39 kDa Ban Absent (.); Lyme Disease IgM Ab 41 kDa Ban Absent (.); Lyme Disease IgM Ab Quantitati 1.28 index (0.00-0.79); Lyme Disease IgM West Blot Int Negative (.)
[2020-07-24 22:00] VITALS: BP 151/71
[2020-07-24] MEDS: atenoloL 50 MG TAB PO SCH (22:02)
[2020-07-24] MEDS: ACETAMINOPHEN TAB 650MG DOSE (2X325MG) PO PRN (22:03)
[2020-07-25 06:00] VITALS: BP 151/70
[2020-07-25 06:14] LABS: BASO # 0.1 10^3/uL (0.0-0.2); BASO % 1.1 % (0.0-1.0); EOS # 0.4 10^3/uL (0.0-0.5); EOS % 3.4 % (0.0-3.0); HEMATOCRIT 38.4 % (36.0-47.0); LYMPH # 5.1 10^3/uL (1.5-5.0); LYMPH % 45.9 % (24.0-44.0); MEAN CORPUSCULAR HEMOGLOBIN 31.9 pg (27.0-33.0); MEAN CORPUSCULAR HGB CONC 33.9 g/dl (32.0-36.5); MEAN CORPUSCULAR VOLUME 94.1 fl (80.0-96.0); MONO # 1.1 10^3/uL (0.0-0.8); MONO % 10.3 % (0.0-5.0); NEUTROPHILS # 4.3 10^3/uL (1.5-8.5); NEUTROPHILS % 38.2 % (36.0-66.0); PLATELET COUNT, AUTOMATED 296 10^3/uL (150-450); RED BLOOD COUNT 4.08 10^6/uL (4.00-5.40)
[2020-07-25 06:22] LABS: WHITE BLOOD COUNT 11.1 10^3/uL (4.0-10.0)
[2020-07-25 07:02] LABS: ALBUMIN 3.2 GM/DL (3.2-5.2); ALT/SGPT 30 U/L (12-78); BILIRUBIN,TOTAL 0.7 MG/DL (0.2-1.0); BLOOD UREA NITROGEN 21 MG/DL (7-18); CALCIUM LEVEL 9.2 MG/DL (8.8-10.2); CARBON DIOXIDE LEVEL 25 MEQ/L (21-32); CHLORIDE LEVEL 109 MEQ/L (98-107); GLOMERULAR FILTRATION RATE > 60.0 (>32); GLUCOSE, FASTING 178 MG/DL (70-100); MAGNESIUM LEVEL 1.7 MG/DL (1.8-2.4); POTASSIUM SERUM 4.4 MEQ/L (3.5-5.1); SODIUM LEVEL 138 MEQ/L (136-145); TOTAL PROTEIN 6.9 GM/DL (6.4-8.2)
--- NOTE | 2020-07-25 07:48 | IPNPDOC ---
Text Note Date of Service The patient was seen on 07/25/20. NOTE Subjective: Patient seen and examined this morning at bedside she is doing well alert and oriented 3. Conversational. No overnight events Objective: Constitutional: Awake and alert, in no apparent distress ENT: Sclera are clear. Mucosa is moist. Respiratory: Lungs CTA bilaterally. No respiratory distress. No use of accessory muscles. Cardiovascular: RRR S1 and S2 are normal, no murmur Gastrointestinal: Abdomen is soft, non distended, non tender, BS present. Musculoskeletal: No edema. No joint deformities. RUE 5/5, LUE 5/5, BLE 5/5 Neurologic: No focal neurological deficit. Subtle left facial droop. Mental Status: A&O x3, normal affect conversational. Skin: Warm, dry some mild erythema around the left eye Assessment/plan 79-year-old female with history of hypertension, diabetes mellitus brought to the ED by family for altered mental status, confusion, and fall with compression fracture. She was recently admitted for sepsis secondary to UTI. Admitted to [facility] service for evaluation of altered mental status as well as PFS evaluation for possible placement, physical therapy evaluation status post fall and compression fracture. Her AMS seems to have improved but there are periods of time of waxing and waning. Family no longer able to care for her home and she will need placement. Patient was switched ALC status on 07/25/2020. # Acute encephalopathy: etiology unknown but seems to have improved and back to around baseline. Recent delirium due to sepsis from UTI. Urine cx neg. BCx negative. LP done 07/23/20 negative. ID and neurology consulted. # Equivocal Lyme serology: on 06/24. Discussed this with Dr. Mina, recommends starting ceftriaxone versus doxycycline (x 3 weeks). Obtain repeat MRI, to further evaluate for encephalopathy/encephalitis. Per Dr. Craig, IgM titer of 0.88 is intermediate, equivocal. Recommends repetition of Lyme serology which was negative and Ceftriaxone was discontinued on 07/24/2020. # Positive RPR: TP Ab negative. # Facial droop: Present on prior admission 06/21/20, CVA ruled out on prior admission (CT x 2, MRI, MRA neg). Was seen by neuro. 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 Was treated for 7 days with prednisone and Valtrex. Visine drops. Review shows positive Lyme IgM serology. # KINJAL: resolved. DC IVF. # Back pain: tylenol. Hold home baclofen due to AMS. Vertebral compression fx, 20% loss vertical height. Discussed with Dr. Carroll, non operative. pain control. PT eval. Consider lumbar back brace to assist with pain as needed. # HTN: HCTZ 12.5. Atenolol 50 mg qhs. Hold lisinopril due to KINJAL. # DM2: ISS, hypoglycemic precaution Lipitor 80 mg qhs. # depression: home citalopram # Degenerative arthritis: tramadol 50 mg PO bid prn # GI ppx: protonix 40 mg PO daily # DVT ppx: lovenox 40 mg sc daily [facility] VSTalisha, I+O VSTalisha I+O Laboratory Tests 07/25/20 05:26 Vital Signs Date Time Temp Pulse Resp B/P (MAP) Pulse Ox O2 Delivery O2 Flow Rate FiO2 07/25/20 06:00 97.9 64 18 151/70 (97) 94 Room Air I&O- Last 24 Hours up to 6 AM 07/25/20 06:00 Intake Total 225 ml Output Total 0 ml Balance 225 ml STEVEN GOETZ MD Jul 25, 2020 07:48
[2020-07-25] MEDS: ENOXAPARIN 40MG/0.4ML SYRINGE (J1650 PER 10MG) SC SCH (09:09)
[2020-07-25] MEDS: HumaLOG INSULIN (NovoLOG) PER UNIT SC SCH ×4 (09:10→20:42)
[2020-07-25] MEDS: DOCUSATE SODIUM 100 MG CAP PO SCH ×2 (09:10→20:41)
[2020-07-25] MEDS: ATORVASTATIN 20 MG TAB PO SCH (09:10)
[2020-07-25] MEDS: CitaloPRAM (CeleXA) 20 MG TAB PO SCH (09:10)
[2020-07-25] MEDS: PANTOPRAZOLE 40MG TAB (PROTONIX) PO SCH (09:11)
[2020-07-25] MEDS: ACETAMINOPHEN TAB 650MG DOSE (2X325MG) PO PRN (09:19)
[2020-07-25 14:00] VITALS: BP 152/70
[2020-07-25 20:05] VITALS: BP 171/81
[2020-07-25] MEDS: RAMELTEON 8 MG TAB (ROZEREM) PO SCH (20:41)
[2020-07-25] MEDS: atenoloL 50 MG TAB PO SCH (20:41)
[2020-07-26 06:00] VITALS: BP 169/81
--- NOTE | 2020-07-26 07:33 | IPN ---
INFECTIOUS DISEASE PROGRESS NOTE DATE: 07/24/2020 CHIEF COMPLAINT: Ms. Kelly is seen in need at the bedside. The patient was able to sit up in bed to get to her dinner tonight. She has a good appetite. She states her back pain is not too bad. She has no nausea, vomiting or diarrhea. No headache or neck stiffness. No fever or chills. She feels well. She is pleasantly confused, laughs about everything. 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 Harris. PHYSICAL EXAMINATION: GENERAL: Comfortable, sitting up to eat her dinner. Alert and oriented x2. Mild erythema in the left eye to the left cheek from fall with a left facial droop. NECK: Supple. No JVD, no bruits. No neck stiffness. HEART: Normal S1, S2. No murmurs, rubs or gallops. LUNGS: Clear. No wheezes, rales or rhonchi. ABDOMEN: Soft, nontender. No hepatosplenomegaly. EXTREMITIES: No cyanosis, clubbing or edema. BACK: Mild lumbosacral tenderness at L1, L2. LABORATORY DATA: White count 12.7, hemoglobin 12.3, hematocrit 37, platelets 295,000, 58% neutrophils, 28% lymphocytes, 9% monocytes. ESR 45. Sodium 135, potassium 4.6, chloride 106, bicarb 26, BUN 14, creatinine 0.84, glucose 224, calcium 9.1. Bilirubin 0.6, magnesium 1.6, AST 15, ALT 24, alkaline phosphatase 100. CRP 0.34, total protein 6.9, albumin 3.2. Urinalysis has 6 white cells, +1 leukocyte esterase. Hepatitis C was negative. Lyme serology: IGM 1.28 with 0 bands in the IGM or IGG region, this was a negative test. CSF had 6 to 10 white cells, less than 2 red cells, total protein 41, glucose 124. VDRL is pending. Lyme CSF is pending and oligoclonal bands are pending. IMPRESSION: 1. Confusion with associated left facial palsy and visual hallucinations. This is not Lyme disease repeat test has been negative . Please call the lab and ask them why the RPR was not done. Will discontinue I.V. Ceftriaxone. 2. Mild leukocytosis and mild elevation of inflammatory markers: Should also rule out possible autoimmune disease as the cause of current manifestation. PLAN Will add YANELY and TAJ level to rule out neurosarcoidosis. MTDD
[2020-07-26 07:56] LABS: BASO # 0.1 10^3/uL (0.0-0.2); EOS # 0.3 10^3/uL (0.0-0.5); EOS % 2.4 % (0.0-3.0); HEMATOCRIT 38.9 % (36.0-47.0); HEMOGLOBIN 13.1 g/dl (12.0-15.5); LYMPH # 4.8 10^3/uL (1.5-5.0); LYMPH % 43.2 % (24.0-44.0); MEAN CORPUSCULAR HEMOGLOBIN 32.4 pg (27.0-33.0); MEAN CORPUSCULAR HGB CONC 33.7 g/dl (32.0-36.5); MEAN CORPUSCULAR VOLUME 96.3 fl (80.0-96.0); MONO # 1.1 10^3/uL (0.0-0.8); MONO % 9.7 % (0.0-5.0); NEUTROPHILS # 4.7 10^3/uL (1.5-8.5); NEUTROPHILS % 42.2 % (36.0-66.0); PLATELET COUNT, AUTOMATED 307 10^3/uL (150-450); RED BLOOD COUNT 4.04 10^6/uL (4.00-5.40); WHITE BLOOD COUNT 11.2 10^3/uL (4.0-10.0)
[2020-07-26 08:28] LABS: ALBUMIN 3.3 GM/DL (3.2-5.2); BILIRUBIN,TOTAL 0.7 MG/DL (0.2-1.0); CALCIUM LEVEL 9.1 MG/DL (8.8-10.2); CREATININE FOR GFR 1.02 MG/DL (0.55-1.30); GLOMERULAR FILTRATION RATE 55.5 (>32); MAGNESIUM LEVEL 1.6 MG/DL (1.8-2.4); POTASSIUM SERUM 4.5 MEQ/L (3.5-5.1); TOTAL PROTEIN 6.7 GM/DL (6.4-8.2)
[2020-07-26] MEDS: ENOXAPARIN 40MG/0.4ML SYRINGE (J1650 PER 10MG) SC SCH (08:43)
[2020-07-26] MEDS: PANTOPRAZOLE 40MG TAB (PROTONIX) PO SCH (08:43)
[2020-07-26] MEDS: HumaLOG INSULIN (NovoLOG) PER UNIT SC SCH ×4 (08:43→21:00)
[2020-07-26] MEDS: DOCUSATE SODIUM 100 MG CAP PO SCH ×2 (08:43→21:04)
[2020-07-26] MEDS: ATORVASTATIN 20 MG TAB PO SCH (08:44)
[2020-07-26] MEDS: CitaloPRAM (CeleXA) 20 MG TAB PO SCH (08:44)
[2020-07-26] MEDS ORDERED: MAGNESIUM OXIDE 400 MG TAB (MAG-OX) PO ONE (09:00)
[2020-07-26 16:08] LABS: ANGIOTENSIN 1 CONVERTING ENZYM 16 U/L (14-82); ANTINUCLEAR ANTIBODIES DIRECT Negative (Negative)
[2020-07-26 19:51] VITALS: BP 181/81
[2020-07-26 19:54] VITALS: BP 154/70
[2020-07-26 21:05] VITALS: BP 154/70
[2020-07-26] MEDS: atenoloL 50 MG TAB PO SCH (21:05)
[2020-07-26] MEDS: RAMELTEON 8 MG TAB (ROZEREM) PO SCH (21:05)
[2020-07-27 05:31] VITALS: BP 170/69
[2020-07-27 06:17] LABS: BASO # 0.1 10^3/uL (0.0-0.2); BASO % 0.8 % (0.0-1.0); EOS # 0.2 10^3/uL (0.0-0.5); HEMATOCRIT 37.1 % (36.0-47.0); HEMOGLOBIN 12.6 g/dl (12.0-15.5); LYMPH % 33.8 % (24.0-44.0); MEAN CORPUSCULAR HEMOGLOBIN 32.5 pg (27.0-33.0); MEAN CORPUSCULAR VOLUME 95.6 fl (80.0-96.0); MONO # 1.2 10^3/uL (0.0-0.8); MONO % 10.5 % (0.0-5.0); NEUTROPHILS # 6.1 10^3/uL (1.5-8.5); NEUTROPHILS % 51.8 % (36.0-66.0); PLATELET COUNT, AUTOMATED 289 10^3/uL (150-450); RED BLOOD COUNT 3.88 10^6/uL (4.00-5.40); WHITE BLOOD COUNT 11.8 10^3/uL (4.0-10.0)
[2020-07-27 06:38] LABS: BLOOD UREA NITROGEN 22 MG/DL (7-18); CALCIUM LEVEL 8.7 MG/DL (8.8-10.2); CARBON DIOXIDE LEVEL 27 MEQ/L (21-32); CHLORIDE LEVEL 106 MEQ/L (98-107); CREATININE FOR GFR 0.94 MG/DL (0.55-1.30); GLOMERULAR FILTRATION RATE > 60.0 (>32); GLUCOSE, FASTING 193 MG/DL (70-100); POTASSIUM SERUM 4.4 MEQ/L (3.5-5.1); SODIUM LEVEL 139 MEQ/L (136-145)
[2020-07-27 06:39] LABS: ALBUMIN 3.1 GM/DL (3.2-5.2); ALT/SGPT 26 U/L (12-78); BILIRUBIN,TOTAL 0.7 MG/DL (0.2-1.0); MAGNESIUM LEVEL 1.7 MG/DL (1.8-2.4); TOTAL PROTEIN 6.5 GM/DL (6.4-8.2)
[2020-07-27] MEDS: ENOXAPARIN 40MG/0.4ML SYRINGE (J1650 PER 10MG) SC SCH (08:00)
[2020-07-27] MEDS: HumaLOG INSULIN (NovoLOG) PER UNIT SC SCH ×2 (08:01→13:52)
[2020-07-27] MEDS: ACETAMINOPHEN TAB 650MG DOSE (2X325MG) PO PRN (08:01)
[2020-07-27] MEDS: ATORVASTATIN 20 MG TAB PO SCH (08:01)
[2020-07-27] MEDS: PANTOPRAZOLE 40MG TAB (PROTONIX) PO SCH (08:01)
[2020-07-27] MEDS: CitaloPRAM (CeleXA) 20 MG TAB PO SCH (08:02)
[2020-07-27] MEDS: DOCUSATE SODIUM 100 MG CAP PO SCH (08:02)
[2020-07-27] MEDS ORDERED: DOCU100C16 PO (10:34)
[2020-07-27] MEDS ORDERED: ACET1TAB55 PO (10:34)
--- NOTE | 2020-07-27 10:37 | DS.PDOC ---
Discharge Summary General Date of Admission Jul 20, 2020 at 17:53 Date of Discharge 07/27/2020 Discharge Summary PROCEDURES PERFORMED DURING STAY: Lumber puncture ADMITTING DIAGNOSES: 1. Altered mental status DISCHARGE DIAGNOSES: 1. Acute encephalopathy now resolved COMPLICATIONS/CHIEF COMPLAINT: Ams/ Compression Fx. HISTORY OF PRESENT ILLNESS: HPI from admitting H&P: Mrs. Kelly is an 79-year-old female with a history of hypertension, diabetes, recent admission to [facility] for sepsis secondary to UTI as well as workup of possible CVA. Brought in by her daughter, for altered mental status, confusion and visual hallucinations, which the patient reported in prior admission. Patient reports falling at home in the bathtub followed by low back pain. Her x-ray shows subacute mild compression fracture of L1 vertebra 20% loss of vertebral body height, progressive from recent CT. On arrival to the ED, BP 159/74, pulse 78, respiratory 16, pulse ox 95%, temperature 96.4. Labs pertinent for WBC 13.3. Creatinine 157. ALP 118. VBG pH 7.3, CO2 44.3, O2 57.1, bicarbonate 22. Patient admitted for workup of altered mental status, back pain status post fall and PFS for possible placement. Of note, on prior admission, patient was thought to have possible CVA. Given left-sided facial droop. Stroke ruled out with CT scan, MRI, MRA. 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 Patient was treated with 7 days of Valtrex and prednisone. His Lyme serology was suggested at the time. On chart review labs from June 24 showing positive Lyme IgM serology. Discussed this with Dr. Mina, patient failed to follow-up. HOSPITAL COURSE: 79-year-old female with history of hypertension, diabetes mellitus brought to the ED by family for altered mental status, confusion, and fall with compression fracture. She was recently admitted for sepsis secondary to UTI. Admitted to hospital service for evaluation of altered mental status as well as PFS evaluation for possible placement, physical therapy evaluation status post fall and compression fracture. Her AMS seems to have improved but there are periods of time of waxing and waning. Family no longer able to care for her home and she will need placement but changed her mind on 07/27/2020 and now are agreeable to taking her home with home health providing 24-hour supervision. Patient was switched ALC status on 07/25/2020. # Acute encephalopathy: etiology unknown but seems to have resolved and back to around baseline. Recent delirium due to sepsis from UTI. Urine cx neg. BCx negative. LP done 07/23/20 negative. ID and neurology consulted. # Equivocal Lyme serology: on 06/24. Discussed this with Dr. Mina, recommends starting ceftriaxone versus doxycycline (x 3 weeks). Obtain repeat MRI, to further evaluate for encephalopathy/encephalitis. Per Dr. Craig, IgM titer of 0.88 is intermediate, equivocal. Recommends repetition of Lyme serology which was negative and Ceftriaxone was discontinued on 07/24/2020. # Positive RPR: TP Ab negative. # Facial droop: Present on prior admission 06/21/20, CVA ruled out on prior admission (CT x 2, MRI, MRA neg). Was seen by neuro. 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 Was treated for 7 days with prednisone and Valtrex. Visine drops. Review shows positive Lyme IgM serology. # KINJAL: resolved. DC IVF. # Back pain: tylenol. Hold home baclofen due to AMS. Vertebral compression fx, 20% loss vertical height. Discussed with Dr. Carroll, non operative. pain control. PT eval. Consider lumbar back brace to assist with pain as needed. # HTN: HCTZ 12.5. Atenolol 50 mg qhs. Hold lisinopril due to KINJAL. # DM2: ISS, hypoglycemic precaution Lipitor 80 mg qhs. # depression: home citalopram # Degenerative arthritis: tramadol 50 mg PO bid prn # GI ppx: protonix 40 mg PO daily DISCHARGE MEDICATIONS: Please see below. ALLERGIES: Please see below. PHYSICAL EXAMINATION ON DISCHARGE: VITAL SIGNS: Please see below. Constitutional: Awake and alert, in no apparent distress ENT: Sclera are clear. Mucosa is moist. Respiratory: Lungs CTA bilaterally. No respiratory distress. No use of accessory muscles. Cardiovascular: RRR S1 and S2 are normal, no murmur Gastrointestinal: Abdomen is soft, non distended, non tender, BS present. Musculoskeletal: No edema. No joint deformities. RUE 5/5, LUE 5/5, BLE 5/5 Neurologic: No focal neurological deficit. Subtle left facial droop. Mental Status: A&O x3, normal affect conversational. Skin: Warm, dry LABORATORY DATA: Please see below. IMAGING: Brain MRI without contrast 06/24/2020 impressions: 1. Motion limited examination. 2. No definite acute intracranial abnormality. X-ray of lumbosacral spine for 5 units impressions: 1. Subacute mild compression fracture deformity involving the L1 vertebral body, now with approximately 20% loss of vertebral body height, progressed when compared to recent CT. 2. Osteopenia and multilevel degenerative changes. Chest x-ray 07/22/2020 impressions: No acute cardiopulmonary process appreciated. PROGNOSIS: Fair ACTIVITY: [As tolerated]. DIET: Diabetic diet DISPOSITION: Home with home health DISCHARGE INSTRUCTIONS: Please follow up with your primary care physician within 1 week from discharge. If you do not have one, please follow up with us to schedule an appointment. Please keep all of your follow up appointments. Please call central to book your appointments with hospital specialists. Please take all your medications as prescribed. Please call/come to Clinic or go to the Emergency Department if - Temp >101, intractable Nausea/Vomiting, Diarrhea, Mouth sores, Headaches, Altered mental status, Seizures, sudden onset of swelling, bleeding, shortness of breath or chest pain. ITEMS TO FOLLOWUP ON ON OUTPATIENT: Follow-up with primary care doctor within 2-5 days of discharge. DISCHARGE CONDITION: [Stable]. TIME SPENT ON DISCHARGE: 38 minutes. Vital Signs/I&Os Vital Signs Date Time Temp Pulse Resp B/P (MAP) Pulse Ox O2 Delivery O2 Flow Rate FiO2 07/27/20 05:31 98.4 65 18 170/69 (102) 97 Room Air I&O- Last 24 Hours up to 6 AM 07/27/20 06:00 Intake Total 1450 ml Balance 1450 ml Laboratory Data Labs 24H Laboratory Tests 2 07/26/20 11:28: Bedside Glucose (Misc Panel) 182H 07/26/20 16:57: Bedside Glucose (Misc Panel) 221H 07/26/20 20:03: Bedside Glucose (Misc Panel) 213H 07/27/20 05:20: Immature Granulocyte % (Auto) 1.1, Neutrophils (%) (Auto) 51.8, Lymphocytes (%) (Auto) 33.8, Monocytes (%) (Auto) 10.5H, Eosinophils (%) (Auto) 2.0, Basophils (%) (Auto) 0.8, Neutrophils # (Auto) 6.1, Lymphocytes # (Auto) 4.0, Monocytes # (Auto) 1.2H, Eosinophils # (Auto) 0.2, Basophils # (Auto) 0.1, Nucleated Red Blood Cells % (auto) 0.0, Anion Gap 6L, Glomerular Filtration Rate > 60.0, Calcium Level 8.7L, Magnesium Level 1.7L, Total Bilirubin 0.7, Aspartate Amino Transf (AST/SGOT) 20, Alanine Aminotransferase (ALT/SGPT) 26, Alkaline Phosphatase 92, Total Protein 6.5, Albumin 3.1L, Albumin/Globulin Ratio 0.9L CBC/BMP Laboratory Tests 07/27/20 05:20 FSBS Laboratory Tests Test 07/26/20 11:28 07/26/20 16:57 07/26/20 20:03 Range/Units Bedside Glucose (Misc Panel) 182 221 213 83-110 MG/DL Microbiology Microbiology 07/23/20 Gram Stain - Final, Complete 07/23/20 CSF Culture - Final, Complete 07/23/20 - Final, Complete 07/20/20 Blood Culture - Final, Complete NO GROWTH AFTER 5 DAYS 07/20/20 Urine Culture - Final, Complete Discharge Medications Scheduled Atenolol (Atenolol) 50 Mg Tab, 50 MG PO QHS, (Reported) Atorvastatin Calcium (Atorvastatin Calcium) 40 Mg Tab, 40 MG PO DAILY, (Reported) Baclofen (Baclofen) 10 Mg Tab, 10 MG PO TID, (Reported) Citalopram Hydrobromide (Celexa) 20 Mg Tablet, 20 MG PO DAILY, (Reported) Docusate Sodium (Docusate Sodium) 100 Mg Capsule, 100 MG PO BID Esomeprazole Magnesium (Esomeprazole Magnesium Dr) 40 Mg Capsule.dr, 40 MG PO DAILY, (Reported) WAITING ON NEW RX, HAS NOT TAKEN IN AWHILE Ibuprofen (Ibu-200) 200 Mg Tablet, 400 MG PO TID, (Reported) Lisinopril/Hydrochlorothiazide (Lisinopril-Hctz 10-12.5 mg Tab) 1 Tab Tab, 1 TAB PO DAILY, (Reported) Metformin HCl (Metformin HCl) 1,000 Mg Tab, 1,000 MG PO BID, (Reported) Scheduled PRN Acetaminophen (Acetaminophen) 325 Mg Tablet, 650 MG PO Q4H PRN for PAIN OR FEVER Peg 400/Hypromellose/Glycerin (Visine Tears Drops) 15 Ml Drops, 1 DROP OS Q6H PRN for REDNESS/IRRITATION, (Reported) Allergies Coded Allergies: propoxyphene (Verified Allergy, Unknown, 07/20/20) STEVEN GOETZ MD Jul 27, 2020 10:37
[2020-08-03 01:07] LABS: CSFLYM10 Absent (.); CSFLYM11 Absent (.); CSFLYM12 Negative (.); CSFLYM14 Absent (.); CSFLYM15 Absent (.); CSFLYM16 Absent (.); CSFLYM17 Negative (.); CSFLYM2 Absent (.); CSFLYM3 Absent (.); CSFLYM4 Absent (.); CSFLYM5 Absent (.); CSFLYM6 Absent (.); CSFLYM7 Absent (.); CSFLYM8 Absent (.); CSFLYM9 Absent (.)
== END 2020-07-27 15:36 | disposition home health service (06) | DRG 683 ==
LOC: M ED 08:25 → EDBEDREQTM 16:40 → M ED INP 17:53 → ENRESERV 18:22 → M MS5PR 19:00
PROVIDERS: ADMIT Family Medicine; ATTEND Family Medicine
PROC: 009U3ZX Drainage of Spinal Canal, Percutaneous Approach, Diagnostic (ICD-10-PCS; principal; 2020-07-23)
DX: N17.9 Acute kidney failure, unspecified (principal); G93.40 Encephalopathy, unspecified; E11.9 Type 2 diabetes mellitus without complications; F32.9 Major depressive disorder, single episode, unspecified; R31.9 Hematuria, unspecified; F41.9 Anxiety disorder, unspecified; J30.9 Allergic rhinitis, unspecified; I10 Essential (primary) hypertension; S32.010D Wedge compression fracture of first lumbar vertebra, subsequent encounter for fracture with routine healing; K57.90 Diverticulosis of intestine, part unspecified, without perforation or abscess without bleeding; K21.9 Gastro-esophageal reflux disease without esophagitis; Z90.49 Acquired absence of other specified parts of digestive tract; Z96.651 Presence of right artificial knee joint; Z87.891 Personal history of nicotine dependence; G51.0 Bell's palsy; Z79.84 Long term (current) use of oral hypoglycemic drugs; Z79.899 Other long term (current) drug therapy; Z88.8 Allergy status to other drugs, medicaments and biological substances; Y92.002 Bathroom of unspecified non-institutional (private) residence as the place of occurrence of the external cause; Y93.E1 Activity, personal bathing and showering; Y99.8 Other external cause status

== ENCOUNTER → 2020-08-21 | Outpatient (CLI) | payer MEDICARE ==
[~2020-08-21] MED LIST changes: +ACET1TAB55 PO; +DOCU100C16 PO; +IBUP200T45 PO; +[UNRECOGNIZED DRUG - CODE] OS
--- NOTE | 2020-08-24 00:34 | ECWPNPC ---
PATIENT NAME: ANNITA CANNON : 1940 GENDER: FEMALE VISIT DATE: 08/21/2020 DISCHARGE DATE: 08/21/20 1103 VISIT LOCKED DATE TIME: PHYSICIAN: ZABRINA LINK PHYSICIAN PAGER NO: ACTIVE RESOURCE: ZABRINA LINK REASON FOR APPOINTMENT 1. 30 MIN -BACK HISTORY OF PRESENT ILLNESS DEPRESSION SCREENING: PHQ-9 LITTLE INTEREST OR PLEASURE IN DOING THINGSNEARLY EVERY DAY FEELING DOWN, DEPRESSED, OR HOPELESSNOT AT ALL TROUBLE FALLING OR STAYING ASLEEP, OR SLEEPING TOO MUCHNOT AT ALL FEELING TIRED OR HAVING LITTLE ENERGYNOT AT ALL POOR APPETITE OR OVEREATING SEVERAL DAYS FEELING BAD ABOUT YOURSELF-OR THAT YOU ARE A FAILURE OR HAVE LET YOURSELF OR YOUR FAMILY DOWN NOT AT ALL TROUBLE CONCENTRATING ON THINGS, SUCH READING THE NEWSPAPER OR WATCHING TELEVISION NOT AT ALL MOVING OR SPEAKING SO SLOWLY THAT OTHER PEOPLE COULD HAVE NOTICED. OR THE OPPOSITE- BEING SO FIDGETY OR RESTLESS THAT YOU HAVE BEEN MOVING AROUND A LOT MORE THAN USUALNOT AT ALL THOUGHTS THAT YOU WOULD BE BETTER OFF , OR OF HURTING YOURSELF IN SOME WAY?NOT AT ALL TOTAL SCORE:4 INTERPRETATIONMINIMAL DEPRESSION PHQ-2 (2015 EDITION) LITTLE INTEREST OR PLEASURE IN DOING THINGS?MORE THAN HALF THE DAYS FEELING DOWN, DEPRESSED, OR HOPELESS?NOT AT ALL TOTAL SCORE2 GENERAL: 80-YEAR-OLD FEMALE BEING REFERRED BY [facility] WILLIAMSON [facility] FOR EVALUATION AND MEDICATION MANAGEMENT OF CHRONIC LOW BACK PAIN. SHE IS HERE TO REESTABLISH CARE. LAST VISIT AT OUR PAIN CLINIC WAS IN NOVEMBER. HAS HAD A FEW HOSPITAL ADMISSIONS SINCE OUR LAST VISIT. SHE WAS BROUGHT TO THE EMERGENCY ROOM ON 2 OCCASIONS FOR ALTERED MENTAL STATUS AND WAS KEPT FOR 8 DAYS. HAD FALL INJURY IN NOVEMBER. SHE HAS A REMOTE HISTORY OF LUMBAR SURGERY. SHE IS NOT INTERESTED IN INJECTION THERAPY OF ANY TYPE. INFORMED HER THAT WE WOULD NOT BE RECOMMENDING DAILY NARCOTIC EXPOSURE AND COULD TRY DIFFERENT MEDICATIONS IF SHE IS RECEPTIVE. SHE WOULD LIKE US TO TAKE OVER MEDICATION MANAGEMENT. -. FALL RISK SCREENING: SCREENING :ONE FALL WITH INJURY IN THE PAST YEAR PAIN SCREENING: PATIENT HAS A COMPLAINT OF ACUTE OR CHRONIC PAIN :YES LOCATION OF PAIN:LOW BACK INTENSITY OF PAIN (SCALE OF 1 TO 10):8 WHAT DOES YOUR PAIN FEEL LIKE:ACHING DURATION:CONTINOUS, CONSTANT PAIN IS INCREASED BY:ACTIVITIES PAIN IS DECREASED BY:USE OF PAIN MEDICATIONS TREATMENT/MEDICATIONS USED TO MANAGE PAIN:NSAIDS LEVEL OF RELIEF FROM PAIN TREATMENTS IN THE PAST:25% PAIN HAS INTERFERED WITH THE FOLLOWING:WALKING ABILITY, HOUSEWORK, SLEEP NURSING NOTE: -. PAIN CENTER INTAKE QUESTIONS: DO YOU HAVE A HISTORY OF MRSA? :NO DO YOU TAKE A BLOOD THINNERS? :NO DO YOU HAVE ANY BLEEDING DISORDERS? :NO ANY NEW NUMBNESS OR WEAKNESS IN YOUR LEGS OR ARMS? :NO ANY PACEMAKER,DEFIBRILLATOR, OR DORSAL COLUMN STIMULATOR? :NO DO YOU HAVE ANY RASHES OR OPEN SORES? :NO ARE YOU ALLERGIC TO IV DYE? :NO ARE YOU DIABETIC? :YES ANY NEW PROBLEMS WITH YOUR MEDICATIONS? :NO HAVE YOU RECEIVED A VACCINE IN THE PAST 30 DAYS? :NO DO YOU PLAN TO RECEIVE A VACCINE IN THE NEXT 21 DAYS? :NO DO YOU NEED ANY PRESCRIPTION? :YES TO DISCUSS DO YOU TAKE ANY IMMUNOSUPPRESSIVE MEDICATIONS? :NO IS THERE A CHANCE YOU COULD BE ? :NO ARE YOU BREAST FEEDING? :NO CURRENT MEDICATIONS TAKING OCCUVITE TABLET 1 TAB(S) ORAL TWICE DAILY TAKING BLOOD GLUCOSE TEST STRIP - - DX: 250 - DAILY TAKING BLOOD GLUCOSE TEST DX: 250.00 STRIP DIRECTED IN VITRO DAILY TAKING SPACER/AERO CHAMBER MOUTHPIECE 0 MISCELLANEOUS DIRECTED - - TAKING ASPIR-81 81 MG TABLET DELAYED RELEASE 1 TABLET ORALLY ONCE A DAY TAKING MAGNESIUM OXIDE 500 MG TABLET 1 TAB WITH MEAL ORALLY DAILY TAKING VITAMIN D 2000 UNIT TABLET 1 TABLET ORALLY DAILY WITH MEAL TAKING FLONASE 50 MCG/ACT SUSPENSION 1 SPRAY IN EACH NOSTRIL NASALLY ONCE A DAY TAKING ALBUTEROL SULFATE HFA 108 (90 BASE) MCG/ACT AEROSOL SOLUTION 2 PUFFS INHALATION FOUR TIMES A DAY IF NEEDED TAKING NEEDLE (DISP) BD NEEDLES FOR VICTOZA 1 SUBCUTANEOUSLY DAILY DX:E11.9 TAKING FERROUS SULFATE 325 (65 FE) MG TABLET 1 TABLET ORALLY TID TAKING BLOOD GLUCOSE TEST - STRIP DIRECTED IN VITRO DAILY DX E11.9 TAKING CALCIUM + D 600-200 MG-UNIT TABLET 1 TABLET WITH FOOD ORALLY ONCE A DAY TAKING ESOMEPRAZOLE MAGNESIUM 40 MG CAPSULE DELAYED RELEASE 1 CAPSULE ORALLY DAILY TAKING ATORVASTATIN CALCIUM 40 MG TABLET 1 TABLET ORALLY ONCE A DAY TAKING RANITIDINE HCL 150 MG CAPSULE 1 CAPSULE AT BEDTIME ORALLY ONCE A DAY NEEDED TAKING GLIPIZIDE XL 2.5 MG TABLET EXTENDED RELEASE 24 HOUR 1 TABLET ORALLY ONCE A DAY WITH MEAL TAKING METFORMIN HCL 1000 MG TABLET 1 TABLET WITH MEALS ORALLY TWICE A DAY TAKING VICTOZA 1.8 MG SOLN 1.8 MG INJECTION SUBCUTANEOUSLY DAILY TAKING CYMBALTA 60 MG CAPSULE DELAYED RELEASE PARTICLES 1 CAPSULE ORALLY ONCE A DAY TAKING ATENOLOL 50 MG TABLET 1 TABLET ORALLY ONCE A DAY TAKING MICONAZOLE NITRATE 2 % CREAM 1 APPLICATION TO AFFECTED SKIN FOLDS IN GROIN EXTERNALLY TWICE A DAY NEEDED TAKING LUTEIN VISION BLEND - CAPSULE ORALLY TAKING LISINOPRIL-HYDROCHLOROTHIAZIDE 10-12.5 MG TABLET 1 TABLET ORALLY ONCE A DAY NOT-TAKING SOMA 350 MG TABLET 1 TABLET NEEDED ORALLY Q8H TID MDD3 FOR 30 DAYS NOT-TAKING BACLOFEN 10 MG TABLET 1 TABLET WITH FOOD OR MILK ORALLY THREE TIMES A DAY NOT-TAKING PERCOCET 10-325 MG TABLET 1 CAP(S) ORALLY Q8H PRN MDD3 #90 TAB SHOULD LAST 30 DAYS NOT-TAKING ACETAMINOPHEN 500 MG CAPSULE 1 CAPSULE NEEDED ORALLY EVERY 6 HRS NOT-TAKING NAPROXEN 500 MG TABLET 1 TABLET NEEDED ORALLY EVERY 12 HRS NOT-TAKING VOLTAREN 1 % GEL EXTERNALLY DIRECTED, NOTES: PAIN CLINIC NOT-TAKING PREDNISONE 20 MG TABLET 2 TABS WITH FOOD ORALLY ONCE A DAY NOT-TAKING AMOXICILLIN 875 MG TABLET 1 TABLET ORALLY TWICE DAILY NOT-TAKING GUAIFENESIN-CODEINE 100-10 MG/5ML SOLUTION 5 ML ORALLY EVERY 4 HRS NEEDED FOR COUGH NOT-TAKING FLUOCINONIDE 0.05 % OINTMENT 1 APPLICATION TO AFFECTED AREA ON ELBOWS EXTERNALLY TWICE A DAY TO ELBOWS NEEDED FOR TWO WEEKS NOT-TAKING DERM OTIC 0.01% OIL 5 GTTS TO RIGHT EAR OTIC TWICE DAILY NOT-TAKING ESTRING 2 MG RING 1 RING WTW VAGINAL 90 DAYS NOT-TAKING OXYBUTYNIN CHLORIDE ER 5 MG TABLET EXTENDED RELEASE 24 HOUR 1 TABLET ORALLY ONCE A DAY NOT-TAKING TRIAMCINOLONE ACETONIDE 0.5 % OINTMENT 1 APPLICATION TO AFFECTED AREA EXTERNALLY TO VULVA TWICE A DAY NOT-TAKING ZESTORETIC 10-12.5 MG TABLET 1 TABLET ORALLY ONCE A DAY NOT-TAKING ESCITALOPRAM OXALATE 20 MG TABLET 0.5 TABLET ORALLY ONCE A DAY NOT-TAKING OXYBUTYNIN CHLORIDE 5 MG TABLET EXTENDED RELEASE ORALLY NOT-TAKING MUCINEX 600 MG TABLET EXTENDED RELEASE 12 HOUR 1 TABLET NEEDED ORALLY EVERY 12 HRS MEDICATION LIST REVIEWED AND RECONCILED WITH THE PATIENT PAST MEDICAL HISTORY OSTEOPENIA DEXA NL 10/28/2012 TYPE II DIABETES HEMATURIA DEPRESSION ANXIETY HYPERTENSION, ESSENTIAL ALLERGIC RHINITIS DIVERTICULOSIS HYPERLIPIDEMIA, MIXED ARTHRITIS ESOPHAGEAL REFLUX DEGENERATIVE DISC DISEASE JOHNSTON'S PALSY ALLERGIES N.K.D.A. SURGICAL HISTORY [facility] CHOLECYSTECTOMY BACK SURGERY KNEE SURGERY R 03 APPENDECTOMY KNEE REPLACEMENT R 05 TRANSVAGINAL TAPING/CYSTOSCOPY DR. LEDEZMA 04/12 EGD: HH, GASTRITIS, POLYP - SUSU 11/17 COLONOSCOPY: HEMORRHOIDS, DIVERTICULOSIS - SUSU (F/UP 5YRS) 11/17 FAMILY HISTORY FATHER: 75 YRS, BONE CANCER, DIAGNOSED WITH UNSPECIFIED HEART DISEASE, OTHER MALIGNANT NEOPLASM OF UNSPECIFIED SITE MOTHER: 75 YRS, BOWEL OBSTRUCTION, DIABETES SIBLINGS: , BROTHER 79 UNKNOWN CAUSE, HAD DIABETES, SISTER DIABETES SOCIAL HISTORY GENERAL: TOBACCO USE ARE YOU A:FORMER SMOKER LATEX QUESTIONNAIRE LATEX ALLERGY : HAVE YOU EVER DEVELOPED ANY TYPE OF REACTION AFTER HANDLING LATEX PRODUCTS SUCH RUBBER GLOVES, CONDOMS, DIAPHRAGMS, BALLOONS, SOCKS, OR UNDERWEAR?NO LATEX ALLERGY : HAVE YOU EVER DEVELOPED ANY TYPE OF REACTION DURING OR AFTER DENTAL APPOINTMENT, VAGINAL/RECTAL EXAMINATION, SURGICAL PROCEDURE, OR ANY OTHER EXPOSURE?NO DATE ASKED : 02/04/2019 LATEX RISK : HAVE YOU EVER HAD ANY DIFFICULTY BREATHING OR HIVES AFTER EATING OR HANDLING ANY FRUITS, OR VEGETABLES; SUCH KIWI, BANANAS, STONE FRUITS, OR CHESTNUTSNO LATEX RISK : DO YOU HAVE A PREVIOUS PERSONAL HISTORY OF MORE THAN NINE SURGERIES, SPINA BIFIDA, OR REPEATED CATHERIZATIONS? NO LATEX RISK : ARE YOU FREQUENTLY EXPOSED TO LATEX PRODUCTS IN YOUR OCCUPATION?NO BMI CARE GOAL FOLLOW-UP ABOVE NORMAL BMI FOLLOW-UPDIETARY MANAGEMENT EDUCATION, GUIDANCE, AND COUNSELING, GIVING ENCOURAGEMENT TO EXERCISE ALCOHOL SCREENING POINTS: 1, INTERPRETATION: NEGATIVE. RECREATIONAL DRUG USE DRUG USE?NO CAFFEINE CAFFEINE USE?YES 1/DAY COFFEE HIV / HEP-C SCREENING HIV TEST OFFERED TO PATIENT: N/A HEP-C TEST OFFERED TO PATIENT: N/A YAZIDISM [id number] ANABAPTIST LANGUAGE LANGUAGES SPOKEN:BURMESE LEARNING BARRIERS / SPECIAL NEEDS ABILITY TO UNDERSTAND VERBAL INSTRUCTIONS GOOD , ABILITY TO UNDERSTAND WRITTEN INSTRUCTIONS GOOD , KNOWLEDGE OF EDUCATIONAL NEEDS/TREATMENT PLAN GOOD , MORAVIAN? NO , LEARNING PREFERENCE NO PREFERENCE , ORIENTED TO PLAN OF CARE: PATIENT , PAIN MANAGEMENT PATIENT. 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 DIET: CARBOHYDRATE CONTROLLED. EXERCISE: NO REGULAR EXERCISE - LIMITED BY BACK PAIN. OTHERS AT HOME: DAUGHTER, MARTHA AND SON-MAXIMINO. PAIN CLINIC PFS, CLERGY, PUBLIC HEALTH REFERRALS PFS REFERRAL NEEDED?NO CLERGY REFERRAL NEEDED?NO PUBLIC HEALTH REFERRAL NEEDED?NO WAS THE PROVIDER NOTIFIED OF ANY PERTINENT INFO?YES HAS THE PATIENT BEEN EDUCATED REGARDING HIS/HER PLAN OF CARE?YES HAS THE PATIENT BEEN EDUCATED REGARDING PAIN, THE RISK FOR PAIN, THE IMPORTANCE OF EFFECTIVE PAIN MANAGEMENT, AND THE PAIN ASSESSMENT PROCESS?YES ADVANCE DIRECTIVE ADVANCE DIRECTIVE DISCUSSED WITH PATIENT:YES PT STATES SHE DOES NOT HAVE HCP AND DECLINES INFORMATION AT THIS TIME. REVIEWED WITH PATIENT 06/16/19 1100 NLJREVIEWED WITH PATIENT 11/30/2019 1040 JS. HOSPITALIZATION/MAJOR DIAGNOSTIC PROCEDURE SURGERY RELATED JOHNSTON'S PALSY UTI REVIEW OF SYSTEMS CONSTITUTIONAL: ANY RECENT FEVER NO . CHILLS NO . WEIGHT CHANGE OF UNKNOWN REASONS NO . GASTROENTEROLOGY: NEW UNEXPLAINABLE CHANGES IN BOWEL CONTROL NO . CONSTIPATION NO . GENITOURINARY: ANY NEW CHANGE IN BLADDER CONTROL? NO . NEUROLOGY: NEW ONSET DIZZINESS OR NEUROLOGICAL CHANGES NOT MENTIONED NO . NEW NUMBNESS OR PAIN PATTERNS NOT MENTIONED AND PERTINENT TO TODAY'S VISIT NO . CARDIOLOGY: NEW CHEST PRESSURE NO . NEW CHEST PAIN NO . RESPIRATORY: UNEXPLAINABLE COUGH NO . NEW SHORTNESS OF BREATH NO . VITAL SIGNS WT 169.0 LBS, HT 62 IN, BMI 30.91 INDEX, BP 157/74 MM HG, HR 74 /MIN, RR 18 /MIN, TEMP 96.7 F, OXYGEN SAT % 96%, SAFE IN ENV? (Y/N) Y, NA INITIALS AW 1019, REVIEWED BY: EM. EXAMINATION GENERAL EXAMINATION: LUNGS:LUNG SOUNDS ARE CLEAR . HEART:HEART RATE REGULAR . MUSCULOSKELETAL:* . LUMBAR:MUSCLE STRENGTH TESTING 5/5 BILATERAL. PALPATION: POSITIVE FOR PAIN OVER L/S SPINE. + FOR PAIN OVER L/S PARSPINAL .. WELL-HEALED SURGICAL SCAR NOTED OVER L/S AXIS.. ASSESSMENTS POST LAMINECTOMY SYNDROME - M96.1 TREATMENT OTHERS START TRAMADOL HCL TABLET, 50 MG, 1 TABLET NEEDED, ORALLY, Q6H PRN MDD4, 30 DAYS, 120, REFILLS 1 START GABAPENTIN CAPSULE, 100 MG, 1 CAPSULE, ORALLY, BID, 30 DAY(S), 60 CAPSULE, REFILLS 1 NOTES: ISTOP REGISTRY REVIEWED AND DEMONSTRATES COMPLLIANCE. , RISKS OF NARCOTIC/OPIOD MEDICATIONS INCLUDES BUT IS NOT LIMITED TO RISK OF DEPENDANCE/DEVELOPMENT OF ADDICTION, MOOD DISTURBANCE AND DEPRESSION, OSTEOPOROSIS, HORMONAL AND LABIDAL CHANGES, RESPIRATORY DEPRESSION AND . PATIENT IS ADVISED NOT TO DRIVE OR DRINK ALCOHOL WHILE ON THESE MEDICATIONS. PROCEDURE CODES FA211 ESTABILISHED PATIENT [facility] FACILITY CHARGE DISPOSITION & COMMUNICATION FOLLOW UP 6 WEEKS (REASON: MED MGMNT) ELECTRONICALLY SIGNED BY BERT YUEN ON 08/23/2020 AT 10:19 AM EST DISCLAIMER : THIS IS A VISIT SUMMARY EXTRACTED FROM THE [employer] CHART. IT IS NOT A COPY OF THE [employer] PROGRESS NOTE. MARY
== END ==
LOC: M PAIN 10:00
PROVIDERS: ATTEND Nurse Practitioner Family
DX: M96.1 Postlaminectomy syndrome, not elsewhere classified (principal); M85.80 Other specified disorders of bone density and structure, unspecified site; E11.9 Type 2 diabetes mellitus without complications; F32.9 Major depressive disorder, single episode, unspecified; F41.9 Anxiety disorder, unspecified; I10 Essential (primary) hypertension; J30.9 Allergic rhinitis, unspecified; E78.5 Hyperlipidemia, unspecified; K21.9 Gastro-esophageal reflux disease without esophagitis; Z79.84 Long term (current) use of oral hypoglycemic drugs; Z79.82 Long term (current) use of aspirin; Z79.899 Other long term (current) drug therapy

== ENCOUNTER 2020-10-01 03:05 | Emergency (ER) | payer MEDICARE ==
[~2020-10-01] VITALS: Ht 162.6 cm; Wt 76.2 kg
[2020-10-01 03:10] VITALS: BP 113/57
[2020-10-01] MEDS ORDERED: EPINEPHrine 1MG/10ML SYRINGE 1.5IN IV STA ×3 (03:21→03:47)
[2020-10-01] MEDS ORDERED: SODIUM BICARBONATE 8.4% INJ 50 ML SYRINGE IV STA (03:24)
[2020-10-01] MEDS ORDERED: NOREPINEPHRINE 4 MG/4 ML AMP As Ordered ONE (03:26)
[2020-10-01 03:29] LABS: BASO # 0.1 10^3/uL (0.0-0.2); BASO % 0.5 % (0.0-1.0); EOS % 0.2 % (0.0-3.0); HEMATOCRIT 37.1 % (36.0-47.0); HEMOGLOBIN 10.9 g/dl (12.0-15.5); LYMPH # 8.4 10^3/uL (1.5-5.0); LYMPH % 45.1 % (24.0-44.0); MEAN CORPUSCULAR HEMOGLOBIN 31.8 pg (27.0-33.0); MEAN CORPUSCULAR HGB CONC 29.4 g/dl (32.0-36.5); MEAN CORPUSCULAR VOLUME 108.2 fl (80.0-96.0); MONO # 1.2 10^3/uL (0.0-0.8); MONO % 6.4 % (0.0-5.0); NEUTROPHILS # 8.6 10^3/uL (1.5-8.5); NEUTROPHILS % 46.6 % (36.0-66.0); PLATELET COUNT, AUTOMATED 267 10^3/uL (150-450); RED BLOOD COUNT 3.43 10^6/uL (4.00-5.40)
[2020-10-01] MEDS ORDERED: NOREPINEPHRINE BITARTRATE 8 MG in D5W 492 ML IV SCH (03:32)
[2020-10-01] MEDS ORDERED: SODIUM BICARBONATE 8.4% INJ 50 ML SYRINGE IV ONE (03:37)
[2020-10-01 03:39] LABS: WHITE BLOOD COUNT 18.5 10^3/uL (4.0-10.0)
[2020-10-01] MEDS ORDERED: NS 1,000 ML IV ONE (03:39)
[2020-10-01] MEDS ORDERED: DOPamine 400 MG/500 ML BAG IN D5W (800MCG/ML) (J1265) As Ordered ONE (03:45)
[2020-10-01] MEDS ORDERED: DOPamine HCL 400 MG in IV 1 EA IV SCH (03:48)
[2020-10-01 04:12] LABS: BILIRUBIN,DIRECT 0.2 MG/DL (0.0-0.2); BILIRUBIN,TOTAL 0.5 MG/DL (0.2-1.0); CALCIUM LEVEL 8.2 MG/DL (8.8-10.2); CK-MB VALUE MASS 7.6 NG/ML (<3.6); CREATININE FOR GFR 1.63 MG/DL (0.55-1.30); GLOMERULAR FILTRATION RATE 32.2 (>32); MB/CK RELATIVE INDEX 5.63 (< OR =4); POTASSIUM SERUM 4.5 MEQ/L (3.5-5.1); TOTAL PROTEIN 6.7 GM/DL (6.4-8.2); TROPONIN I 2.31 NG/ML (< 0.10)
--- NOTE | 2020-10-02 06:32 | ECGEPIP ---
[facility] - ED Test Date: 2020-10-01 Pat Name: ANNITA CANNON Department: Room: - Gender: Female Bolt Sorter: denice : 1940 Requested By: STEPH Deng Order Number: [id number] Reading MD: Urbano Grayson Measurements Intervals [place] Rate: 35 P: 19 DE: 135 QRS: -64 QRSD: 186 T: 87 QT: 499 QTc: 384 Interpretive Statements SINUS BRADYCARDIA WITH OCCASIONAL VENTRICULAR PREMATURE COMPLEXES LEFT AXIS DEVIATION LEFT ANTERIOR FASCICULAR BLOCK RIGHT BUNDLE BRANCH BLOCK SEPTAL MYOCARDIAL INFARCTION, OF INDETERMINATE AGE SIMILAR TO 07/20/20 Electronically Signed on 10-02-2020 6:31:48 EST by Urbano Grayson
== END 2020-10-01 05:46 | disposition expired ==
LOC: M ED 03:05
DX: I46.9 Cardiac arrest, cause unspecified (principal); E11.9 Type 2 diabetes mellitus without complications; I10 Essential (primary) hypertension; K21.9 Gastro-esophageal reflux disease without esophagitis; Z79.899 Other long term (current) drug therapy; Z79.84 Long term (current) use of oral hypoglycemic drugs; Z88.8 Allergy status to other drugs, medicaments and biological substances
CPT/HCPCS: 31500; 36600; 80048; 80076; 82550; 82553; 83605; 83880; 84484; 85025; 87486; 87581; 87633; 87798; 92950; 93005; 93041; 94760; 96374; 96375; 99285; J1265